=== PATIENT | female | born 1945 | race Caucasian/White ===

== ENCOUNTER → 2023-10-09 12:51 | Outpatient (REF) | payer OTHER, SELFPAY | LOC: PAVMRI 12:51 | PROVIDERS: ATTENDING PHYSICIAN Psychiatry & Neurology Neurology; FAMILY PHYSICIAN Family Medicine | DX: M54.50 Low back pain, unspecified (principal) | CPT/HCPCS: 72148 ==

== ENCOUNTER 2023-10-21 19:05 | Inpatient (IN) | payer OTHER, SELFPAY ==
[2023-10-21] VITALS (7 sets, daily range): BP systolic 167–187; BP diastolic 86–107; BMI 28.0; BMI 26.5
--- NOTE | 2023-10-21 15:50 | ED.GENMED ---
History of Present Illness
General
Chief Complaint: Seizure
Source: ambulance crew
Exam Limitations: altered mental status
Time Seen by Provider: 10/21/23 15:49
History of Present Illness
History of Present Illness:
Patient is an 78-year-old female with past medical history of hypertension, hyperlipidemia, seizure disorder although she does not appear to be on any antiepileptics based on external prescription history, GERD, AAA s/p repair, wheelchair-bound, who
presents to the emergency department from home via EMS for evaluation following 2 seizures. Patient is unable to provide history however medics report that family told them that she had a generalized tonic-clonic seizure this afternoon followed by
a period where she seemed to recover and then had another generalized tonic-clonic seizures. Patient has reportedly been postictal and confused since then and therefore family called 911. Family reports that patient had not had a seizure for about
a year and a half. Medics are unsure whether there was bowel or bladder incontinence.
Past History
Past History
ED Past Medical History: HTN, Hypercholesterolemia and Other
ED Past Surgical History: Cholecystectomy, Gynecological and Other
Social History
Tobacco: Smoker
Alcohol: None
Drug: None
Personal:
Living: with family
Review of Systems
Review of Systems
Allergies reviewed?: Yes
Unable to obtain full review of systems at this time due to: other (altered mental status/post-ictal)
All Other Systems: ROS reviewed and negative except as documented in HPI and ROS
Phy Exam
General Physical Exam
General Presentation: mild distress (intermittently combative)
General Skin: warm and dry
General Habitus: normal
General Mental: confused
General Hydration: appears well hydrated
ENT Exam
ENT Exam: EOMI, pharynx normal, neck supple and normocephalic
Eye Exam
Eye Exam: PERRL, cornea clear and conjunctiva normal
Cardiovascular Exam
Cardiovascular Exam: regular rate/rhythm, no murmur, normal peripheral pulses and other (bilateral lower extremity edema)
Pulmonary Exam
Pulmonary Exam: lungs clear, no respiratory distress, no rales, no crackles, no rhonchi, no stridor, no wheezing and no cough
Gastrointestinal Exam
Gastrointestinal Exam: normal bowel sounds, non tender, soft, no organomegaly, no pulsatile mass and non distended
Neurological Exam
Neurological Exam: alert, no motor deficits, confused and other (speech is nonsensical, however, pt follows commands, able to squeeze my hands, moves all extremities symmetrically)
Skin Exam
Skin Exam: normal color, warm/dry, no rash and no petechia
Course
Orders/Labs/Results
Orders:
Orders
10/21/23 15:49
CT Head W/o Iv Contrast Urgent
Comment:
Reason For Exam: altered mental status, seizure x 2
Bedside Glucose- Treatment ONCE
Cardiac Monitoring- Treatment ONCE
10/21/23 15:50
Electrocardiogram (*1) Stat
Reason for Study: Other
Other Reason for Exam: neuro symptoms
EKG- Treatment ONCE
10/21/23 15:57
Complete Blood Count/With Diff Urgent
Comprehensive Metabolic Panel Urgent
10/21/23 16:11
Lorazepam [Ativan] 1 mg IV NOW STA
10/21/23 17:42
Lacosamide [Vimpat] 200 mg PO ONCE ONE
10/21/23 18:17
Admit/Transfer Patient As Directed
Co-Sign Provider:
Level of Care: Inpatient admission
Assign to:: Telemetry
Physician / Group: gerson
Diagnosis: seizure
Reason for Telemetry: Arrhythmia
Date to Stop Telemetry: 10/24/23
Time to Stop Telemetry: 11:00
Reason for Hospitalization: seizure
Expected length of stay greater than two midnights?: Yes
ELOS- Estimated Length of Stay in days: 2
I certify the patient meets the requirements for IP care: Yes
10/21/23 18:18
Code Status As Directed
Resuscitation Status: Full Code
10/21/23 18:19
Urinalysis Reflex To Culture Urgent
10/21/23 18:22
NEUROLOGY CONSULT Routine
Consulting Provider: Lina Noble
Was physician already notified: Yes
Labetalol HCl [Trandate] 10 mg IV Q6HPRN PRN
10/21/23 18:48
Magnesium Urgent
10/22/23 08:00
Nicotine [Nicoderm Transdermal] 14 mg TRANSDERM DAILY
10/24/23 11:00
DC Protocol for Telemetry ONCE
Abnormal Lab Results
10/21/23 10/21/23
15:54 15:57
RBC 3.82 L 10^6/uL
(4.20-5.40)
Hgb 9.4 L g/dL
(12.0-16.0)
Hct 28.8 L %
(37.0-47.0)
MCV 75.4 L fL
(81.0-99.0)
MCH 24.6 L pg
(27.0-31.0)
MCHC 32.6 L g/dL
(33.0-37.0)
RDW 18.5 H %
(11.5-14.5)
MPV 10.6 H fL
(7.4-10.4)
Absolute Lymphs (auto) 0.9 L 10^3/uL
(1.2-3.4)
Neutrophils % 76.8 H %
(42.2-75.2)
Lymphocytes % 13.3 L %
(20.5-51.1)
Creatinine 0.5 L mg/dL
(0.6-1.0)
Glucose 110 H mg/dl
(70-99)
POC Glucose 117 H mg/dl
(70-99)
10/21/23 15:57
10/21/23 15:57
Vital Signs
Initial and Last Documented VS:
Initial Vital Signs
Temp Pulse Resp BP Pulse Ox
100 F 104 19 175/100 94
10/21/23 15:50 10/21/23 15:50 10/21/23 15:50 10/21/23 15:50 10/21/23 15:50
Last Documented Vital Signs
Temp Pulse Resp BP Pulse Ox
100 F 97 22 175/107 91
10/21/23 15:50 10/21/23 17:45 10/21/23 17:45 10/21/23 15:55 10/21/23 16:30
*Critical Care Note
Total Time (30-74mins, 75-104mins- exclusive of procedures): Not Applicable
Update Note
Update Note:
Patient is a 78-year-old female who presents emergency department for evaluation following 2 seizures by about 2 hours. Patient has only had 1 previous seizure 18 months ago. Patient was seen by neurology and they did not feel that she
needed any antiepileptics at that time. Family reports the patient has been feeling sick over the past few days with some diarrhea and abdominal complaints. On arrival, patient is hypertensive, afebrile. On exam, patient is in no acute distress
but is intermittently combative, her speech is nonsensical however she has no focal neurological deficits and is able to follow commands such as opening her eyes and squeezing my fingers. Labs were obtained and are nonactionable. EKG demonstrates
sinus tachycardia with PACs but no acute ischemic changes. CT of the head demonstrates no acute abnormality to account for the patient's symptoms today. On reevaluation, the patient is more awake and alert but is not completely back to baseline
according to her family. Will admit for further evaluation and treatment. Case was discussed with Dr. Noble of neurology who recommends giving the patient 200 mg of Vimpat p.o. now and then starting Vimpat 150 mg twice daily tomorrow. All
results and plan were discussed with patient and her family who expressed understanding and agreed.
ED Attending Note
-
Portions of this chart may have been created with voice recognition software.� Occasional wrong word or��sound alike� substitutions may have occurred due to the inherent limitations of voice recognition software.
Discharge Plan
Departure
Patient Disposition: Admit
Date of Disposition: 10/21/23
Time of Disposition: 17:44
Presentation/result/management discussed w/ accepting MD/DO: Hospitalist
Patient with high blood pressure during this ER visit?: Yes
Condition: Good
Covid-19: Not Applicable
Discharge Problem:
Seizure
Interventions
Interventions:
*Risk Screen - Suicide Last Done: 10/21/23 16:37
*General Assessment Last Done: 10/21/23 16:37
*Neglect/Abuse Screening Last Done: 10/21/23 16:37
ED- Fall Risk Assessment Last Done: 10/21/23 16:32
ED- Cardiac Assessment Last Done: 10/21/23 16:32
ED- Neurological Assessment Last Done: 10/21/23 16:32
ED- Pulmonary Assessment Last Done: 10/21/23 16:32
[2023-10-21 15:56] LABS: Glucose - Point of Care 117 mg/dl (70-99)
[2023-10-21] MEDS: ATIVAN 1 MG IV (16:16)
[2023-10-21 16:18] LABS: % Basophils 0.8 % (0-2); % Eosinophils 1.5 % (0-6); % Immature Granulocytes 0.3 % (0-0.5); % Lymphocytes 13.3 % (20.5-51.1); % Monocytes 7.3 % (1.7-9.3); % Neutrophils 76.8 % (42.2-75.2); Absolute Basophils 0.1 10^3/uL (0-0.2); Absolute Eosinophils 0.1 10^3/uL (0-0.7); Absolute Lymphocytes 0.9 10^3/uL (1.2-3.4); Absolute Monocytes 0.5 10^3/uL (0.1-0.6); Hematocrit 28.8 % (37.0-47.0); Hemoglobin 9.4 g/dL (12.0-16.0); Mean Corp Hgb Conc. 32.6 g/dL (33.0-37.0); Mean Corpuscular Hgb 24.6 pg (27.0-31.0); Mean Corpuscular Volume 75.4 fL (81.0-99.0); Mean Platelet Volume 10.6 fL (7.4-10.4); Nucleated Red Blood Cells % 0 %; Platelet Count 257 10^3/uL (130-400); Red Blood Cell Count 3.82 10^6/uL (4.20-5.40); Red Cell Dist. Width 18.5 % (11.5-14.5); White Blood Cell Count 6.5 10^3/uL (4.8-10.8)
[2023-10-21 16:30] LABS: ALT (SGPT) 14 U/L (0-35); AST (SGOT) 20 U/L (14-36); Albumin 3.8 g/dl (3.5-5.0); Alkaline Phosphatase 79 U/L (38-126); Blood Urea Nitrogen 10 mg/dl (7-17); Calcium 9.5 mg/dl (8.4-10.2); Carbon Dioxide 28 mmol/L (22-30); Chloride 101 mmol/L (98-107); Glucose 110 mg/dl (70-99); Potassium 3.6 mmol/L (3.5-5.1); Sodium 135 mmol/L (135-145); Total Bilirubin 0.7 mg/dl (0.2-1.3); Total Protein 6.4 g/dl (6.3-8.2); eGFR > 60.00
[2023-10-21] MEDS: VIMPAT 200 MG PO (17:50)
--- NOTE | 2023-10-21 18:23 | HPS.HSE ---
Family Physician
-
Family Physician: Irish Reeder
Chief Complaint
-
seizure
History of Present Illness
78-year-old female past medical history of prior seizure 1 and half year ago, chronic lacunar infarcts, hypertension, hyperlipidemia, GERD, abdominal aortic aneurysm status post repair, chronic peripheral edema, L5 spinal fracture status post
wheelchair-bound, euthyroid sick syndrome, normocytic anemia, iron deficiency anemia, nicotine use disorder, anxiety, right breast cancer, mesenteric ischemia, presented to the emergency room after 2 seizures. History is obtained from sons. At
approximately 1:30 PM today patient was noted to have generalized tonic-clonic seizure with whole body shaking and eyes rolled back. Episode lasted a few minutes and patient quickly returned to baseline mental status. An hour and a half later she
had a second tonic-clonic seizure that also lasted a few minutes but this time patient's mental status did not return back to normal. Unclear whether bowel or bladder incontinence. Son called 911. After patient came to the hospital her mental
status started to improve although not completely back to normal.
Patient last had a seizure 1 and a 1/2 years ago and came to the [place] emergency room. This was thought to be secondary to electrolyte abnormalities and patient was discharged without antiepileptics and outpatient EEG was recommended.
Patient started complaining of left eye blurry vision over the past month. No other recent neurological deficits. She has been having increased urinary frequency recently.
Patient smokes at least a pack of cigarettes a day. No alcohol use or any other drugs.
Medical History
Past Medical History
Past Medical History: Reports Other (prior seizure 1 and half year ago, chronic lacunar infarcts, hypertension, hyperlipidemia, GERD, abdominal aortic aneurysm status post repair, chronic peripheral edema, L5 spinal fracture status post
wheelchair-bound, euthyroid sick syndrome, normocytic anemia, iron deficiency anemia, nicotine use d)
Past Surgical History: Reports None
Social History
Tobacco: Smoker
Alcohol: None
Drug: None
Family History
Family History: Not pertinent
Allergies / Home Medications
Allergies reflects when Allergies were last updated in [email or web address].
Home Medications with original date entered in [email or web address]
Allergy/Medication List:
Allergies
Allergy/AdvReac Type Severity Reaction Status Date / Time
penicillin G Allergy Tongue Verified 10/21/23 16:13
Swelling
Penicillins Allergy Tongue Verified 10/21/23 16:13
Swelling
Home Medications
citalopram 20 mg tablet 20 mg PO DAILY Mental Health/Anxiety 03/09/21
lisinopril 20 mg tablet 40 mg PO DAILY Blood pressure 03/09/21
multivitamin with folic acid 400 mcg tablet (Tab-A-Charo) 1 tab PO DAILY Supplement 03/09/21
alprazolam 0.5 mg tablet 0.5 mg PO HSPRN PRN ANXIETY #5 tabs 04/24/23
polyethylene glycol 3350 17 gram oral powder packet (HealthyLax) 17 g PO DAILY PRN constipation 05/11/23
atorvastatin 10 mg tablet 10 mg PO QPM High cholesterol #30 tabs 05/24/23
gabapentin 300 mg capsule 300 mg PO TID neuropathy #0 caps 05/24/23
ferrous sulfate 325 mg (65 mg iron) tablet 325 mg PO Q48H Supplement 10/21/23
hydrocodone 10 mg-acetaminophen 325 mg tablet 1 tab PO Q6H PRN severe back pain 10/21/23
Review of Systems
-
History Source: Patient
A 12 point ROS was completed and negative except as noted: Yes
Constitutional: Reports No Symptoms
EENT: Reports No Symptoms
Respiratory: Reports No Symptoms
Cardiac: Reports No Symptoms
Abdomen/GI: Reports No Symptoms
: Reports No Symptoms
Musculoskeletal: Reports No Symptoms
Skin: Reports No Symptoms
Neurological: Reports No Symptoms
Endocrine: Reports No Symptoms
Hematologic/Lymphatic: Reports No Symptoms
Psych: Reports No Symptoms
Physical Exam
Vital Signs
Vital Signs
Temp Pulse Resp BP Pulse Ox
100 F 97 22 175/107 91
10/21/23 15:50 10/21/23 17:45 10/21/23 17:45 10/21/23 15:55 10/21/23 16:30
Physical Exam
General: Well Developed, Well Nourished and No Apparent Distress
HEENT: NormoCephalic, Moist mucous membranes and Atraumatic
Respiratory: Clear
Cardiac: S1/S2 and Regular Rhythm; No Murmur or Rub
GI: Soft, Non Tender, Non Distended and Normal Bowel Sounds; No Organomegaly
Rectal: Deferred by Provider
Musculoskeletal: No Clubbing, No Cyanosis and No Edema
Skin: No Rash
Neuro: Nonfocal/grossly intact
Laboratory Results
-
10/21/23 15:57
10/21/23 15:57
Laboratory Results
Total Bilirubin 0.7 mg/dl (0.2-1.3) 10/21/23 15:57
AST 20 U/L (14-36) 10/21/23 15:57
ALT 14 U/L (0-35) 10/21/23 15:57
Alkaline Phosphatase 79 U/L (38-126) 10/21/23 15:57
Data Reviewed
-
Lab Data: Labs Reviewed by me
Old Records: Reviewed
Impression/Plan
-
IMPRESSION:
PLAN:
# Tonic-clonic seizures
# History of prior seizure
-No focal neurological deficits on examination, postictal mental status improving, currently AAOx2
-CT head shows no acute intracranial abnormalities
-Neurology recommended lacosamide 200 mg now and then 150 mg twice daily from tomorrow
-Check magnesium level
-Consider MRI brain based on neurology recommendation given recent left eye blurry vision
# Hypertensive urgency
-Continue lisinopril
-As needed labetalol for persistently elevated blood pressure
# Recent urinary frequency
-Check urinalysis
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
Hyperlipidemia
-Continue statin
GERD
History of abdominal aortic aneurysm status post repair
History of L5 spinal fracture with decreased mobility/wheelchair-bound/chronic back pain
-Continue Vicodin
-Hold gabapentin for now until mental status back to normal
Chronic peripheral edema secondary to immobility/venous stasis
Anxiety/depression
-Continue Xanax as needed
-Continue citalopram
Chronic microcytic anemia
-Hemoglobin stable 9.4
-Continue iron supplement
Nicotine use disorder
-Nicotine patch
History of euthyroid sick syndrome
History of mesenteric ischemia
History of breast cancer
Full code
DVT prophylaxis�heparin
Regular diet
[2023-10-21 19:25] LABS: Magnesium 1.9 mg/dl (1.6-2.3)
[2023-10-21] MEDS: HEPARIN 5000 UNITS SC (21:20)
[2023-10-21] MEDS: XANAX 0.5 MG PO (22:07)
[2023-10-22] VITALS (34 sets, daily range): BP systolic 104–193; BP diastolic 52–115; BMI 25.9
[2023-10-22] MEDS: TRANDATE 10 MG IV (00:40)
[2023-10-22] MEDS: XOPENEX 0.63 MG INHALANT SOLUTION INH (00:46)
--- NOTE | 2023-10-22 00:46 | PTCARENOTE ---
patient with onset of shortness of breath - Pulse ox 89 on 4L. and tachycardia HR 145, sustained . BP 200/99. [id number]. Reached out to Utility Manager precious Moody NP arrived to floor to evaluate patient and place orders. Will continue to monitor patient
--- NOTE | 2023-10-22 00:47 | RESPNOTE ---
called to patient bedside for respiratory distress. Patient in fluid overload. Determined that nebulizer treatment was not the correct therapy at this time.
[2023-10-22] MEDS: MORPHINE SULFATE 2 MG IV (01:08)
[2023-10-22 01:30] LABS: % Basophils 0.6 % (0-2); % Eosinophils 0.3 % (0-6); % Immature Granulocytes 0.3 % (0-0.5); % Lymphocytes 10.9 % (20.5-51.1); % Monocytes 6.5 % (1.7-9.3); % Neutrophils 81.4 % (42.2-75.2); Absolute Basophils 0.1 10^3/uL (0-0.2); Absolute Lymphocytes 1.2 10^3/uL (1.2-3.4); Absolute Monocytes 0.7 10^3/uL (0.1-0.6); Absolute Neutrophils 9.3 10^3/uL (1.4-6.5); Hematocrit 31.1 % (37.0-47.0); Hemoglobin 10.1 g/dL (12.0-16.0); Mean Corp Hgb Conc. 32.5 g/dL (33.0-37.0); Mean Corpuscular Hgb 24.9 pg (27.0-31.0); Mean Corpuscular Volume 76.8 fL (81.0-99.0); Mean Platelet Volume 10.3 fL (7.4-10.4); Nucleated Red Blood Cells % 0 %; Platelet Count 300 10^3/uL (130-400); Red Blood Cell Count 4.05 10^6/uL (4.20-5.40); Red Cell Dist. Width 18.5 % (11.5-14.5); White Blood Cell Count 11.4 10^3/uL (4.8-10.8)
[2023-10-22 01:48] LABS: ALT (SGPT) 13 U/L (0-35); AST (SGOT) 20 U/L (14-36); Albumin 3.9 g/dl (3.5-5.0); Alkaline Phosphatase 76 U/L (38-126); Blood Urea Nitrogen 10 mg/dl (7-17); Calcium 9.1 mg/dl (8.4-10.2); Carbon Dioxide 28 mmol/L (22-30); Chloride 102 mmol/L (98-107); Estimated Creatinine Clearance 65 ml/min; Glucose 201 mg/dl (70-99); Potassium 3.5 mmol/L (3.5-5.1); Sodium 137 mmol/L (135-145); Total Bilirubin 0.9 mg/dl (0.2-1.3); Total Protein 6.4 g/dl (6.3-8.2); eGFR > 60.00
[2023-10-22 01:54] LABS: NT-proBNP 17800 pg/ml
[2023-10-22] MEDS: LASIX 40 MG IV ×2 (02:39→11:10)
[2023-10-22] MEDS: NORCO 5/325 PO (02:57)
[2023-10-22 03:19] LABS: Glucose - Point of Care 150 mg/dl (70-99)
[2023-10-22] MEDS: XOPENEX 0.63 MG INHALANT SOLUTION 0.630000000000000004 MG INH (03:23)
[2023-10-22 03:58] LABS: COVID-19 Antigen Negative (Negative)
[2023-10-22 03:58] LABS: B.E. 3.4 mmol/L; HCO3 29.5 mmol/L (21-28); O2 Saturation % 98.9 % (94-98); PCO2 51 mmHg (32-35); PO2 92 mmHg (83-108); pH 7.37 (7.35-7.45)
--- NOTE | 2023-10-22 04:06 | PTCARENOTE ---
rapid response called for patient. Patients HR increased to 140's , Respiratory rate 26-28. BP 207/121 Pulse ox 93 on 4 Liters. 40 mg IV Lasex given at 2:39 am, with no relief, as well as IV Mporphine as Labatol. Patient transferred to ICU
[2023-10-22 04:30] LABS: Urine Albumin Trace (Neg - Trace); Urine Bilirubin Negative (Negative); Urine Character Clear (Clear); Urine Color Yellow; Urine Glucose Negative (Negative); Urine Ketone Negative (Negative); Urine Leukocyte Negative (Negative); Urine Nitrite Negative (Negative); Urine Occult Blood Negative (Negative); Urine Urobilinogen Negative (Neg - 1+)
--- NOTE | 2023-10-22 04:30 | PTCARENOTE ---
rec`d pt after a rapid call. pt drowsy in bed, alert to verbal stimuli. knows self, but not year or time. SR on monitor, BP elevated, +3 bilateral lower extremity edema. left AC 20 and rt FA flushed and capped. 6L NC satting 96%, coarse crackles
heard on LL lung. pacheco placed, draining clear, yellow urine. left groin wound open to air. safe environment maintained. call andrews in reach.
[2023-10-22 04:38] LABS: Troponin I 0.101 ng/ml
[2023-10-22 04:41] LABS: INR 1.09; PT 13.9 Sec (11.4-14.6)
[2023-10-22 04:42] LABS: APTT 26.2 Sec (23.4-35.0)
--- NOTE | 2023-10-22 04:46 | W.PN.UPDATE ---
Update Note
Progress Note Update
At 0015 Ran notfied VAMP WETTER as patient seems to be anxious and HR in 130's, oxygen level 87% 3l, Lungs diminished with wheezes, BP 195/100. Patient seen and evaluated, patient seemed to be in respiratory distress, Lungs, coarse, audible rales, congested,
+ edema B/L LE. Xopenex ordered, Chest Xray and Procalcitonin ordered, Covid, flu, and advised RN to give ordered labetalol, and added Morphine 2mg IV stat for comfort of breathing.
Chest Xray read with the help of Dr. Olson, and suggestive of Heart failure, Procalcitonin 19210, last year it was 508. Don't see any diuretic on home medications and states she is not on any water pills at home, but admits she may have
COPD from smoking. Medical records does show patient had IV lasix once when she was admitted in the hospital for chronic LE edema.
At 0315 GLASS MOULD CLEANER was called. Patient in worsening respiratory distress and worsening mental status, VS: 200/100, HR 140's, 6L 88-90%, Lung sounds continues to be same. Stat labs ordered, stat ABG ordered, Called Patient's to confirm code status,
patient remains Full code, will transfer patient to ICU, Dr. Olson made aware.
[2023-10-22] MEDS: OFIRMEV 100 IV (05:57)
[2023-10-22] MEDS: APRESOLINE 10 MG IV ×2 (05:57→13:15)
[2023-10-22] MEDS: DILAUDID 0.5 MG IV (06:24)
--- NOTE | 2023-10-22 07:13 | CON.INTV ---
Consultation
Consultation Request
Date/Time Consultation Requested: 10/21/23
Date/Time Consultation Performed: 10/22/23
Medical History
-
History of Present Illness:
78-year-old female past medical history of prior seizure, chronic lacunar infarcts, hypertension, chronic LBP/wheelchair-bound, current smoker presented to ED s/p two witnessed seizures at home.� History is obtained from family/records.� Patient
was noted to have generalized tonic-clonic seizure, lasting several minutes and resolution to baseline w/o postictal period.� Following second episode, patient's mental status did not recover and EMS was then called.
Patient has a history of seizure in the past at .� This was thought to be secondary to electrolyte abnormalities. Patient was discharged without antiepileptics and outpatient EEG was recommended.
She is admitted to telemetry. Overnight developed HR in 130-140s, desaturation with O2 sherita 87% placed on 6L, wheezing, BP 195/100-200/100. She appeared in resp distress, and transferred to ICU. CXR showing acute CHF with proBNP 42530.
Past Medical History
Past Medical History: Other (see list below)
Social History
Tobacco: Smoker
Alcohol: None
Drug: None
Family History
Family History: Reviewed & Not Pertinent
Allergies / Home Medications
Allergies
Allergy/AdvReac Type Severity Reaction Status Date / Time
penicillin G Allergy Tongue Verified 10/21/23 16:13
Swelling
Penicillins Allergy Tongue Verified 10/21/23 16:13
Swelling
Home Medications
Medication Instructions Recorded Confirmed Last Taken Type
citalopram 20 mg tablet 20 mg PO DAILY Mental 03/09/21 10/21/23 05/22/23 History
Health/Anxiety
lisinopril 20 mg tablet 40 mg PO DAILY Blood pressure 03/09/21 10/21/23 05/22/23 History
multivitamin with folic acid 400 1 tab PO DAILY Supplement 03/09/21 10/21/23 05/22/23 History
mcg tablet (Tab-A-Charo)
alprazolam 0.5 mg tablet 0.5 mg PO HSPRN PRN ANXIETY #5 04/24/23 10/21/23 Unknown Rx
tabs
polyethylene glycol 3350 17 gram 17 g PO DAILY PRN constipation 05/11/23 10/21/23 Unknown History
oral powder packet (HealthyLax)
atorvastatin 10 mg tablet 10 mg PO QPM High cholesterol #30 05/24/23 10/21/23 05/21/23 Rx
tabs
gabapentin 300 mg capsule 300 mg PO TID neuropathy #0 caps 05/24/23 10/21/23 Unknown Rx
ferrous sulfate 325 mg (65 mg 325 mg PO Q48H Supplement 10/21/23 10/21/23 Unknown History
iron) tablet
hydrocodone 10 mg-acetaminophen 1 tab PO Q6H PRN severe back pain 10/21/23 10/21/23 Unknown History
325 mg tablet
Review of Systems
-
History Source: Patient
All other systems: Negative unless noted
Vitals / Labs / Diagnostic Testing
Vital Signs
Temp Pulse Resp BP Pulse Ox
99.0 F 93 28 150/70 96
10/22/23 03:00 10/22/23 06:30 10/22/23 06:30 10/22/23 06:30 10/22/23 06:30
Lab Data
10/22/23 01:20
10/22/23 01:20
Laboratory Results
10/22/23 10/22/23
03:30 04:22
PT 13.9
INR 1.09
APTT 26.2
pH 7.37
pCO2 51 H
pO2 92
HCO3 29.5 H
O2 Delivery Level Not Reportable
Microbiology
10/22/23 03:23 Nasal Swab Influenza Types A & B (ELEUTERIO) - Final
Negative for Influenza A & B, NAAT
Negative results must be combined with clinical observations
and patient history.
Nucleic Acid Amplification test (NAAT)performed on the
[employer] ID NOW platform.
Diagnostic Testing:
Physical Exam
-
HEENT: Normocephalic, Anicteric and Moist Mucous Membranes
Cardiovascular: S1/S2 and Regular Rhythm
Respiratory: Rales and Non-Labored Respirations
GI: Soft, Non Distended and Non Tender
Neurology: Awake, Alert, No Motor Deficits, Tremors and Other (confused)
Skin: Warm, Dry and Good Color
General: Comfortable and Other (NAD)
Assessment
-
78-year-old female past medical history of prior seizure, chronic lacunar infarcts, hypertension, chronic LBP/wheelchair-bound, current smoker presented to ED s/p two witnessed seizures at home.�
Overnight developed HR in 130-140s, desaturation with O2 sherita 87% placed on 6L, wheezing, BP 195/100-200/100, CXR showing acute CHF with proBNP 19156. She appeared in resp distress, and transferred to ICU for further management.
Acute generalized tonic clonic seizure x 2 with postictal period
Change in MS
Acute decompensated CHF presumed pEF
Pulmonary edema on CXR, elevated proBNP
Acute hypoxic resp failure on 6L NC
Hypertensive emergency
Conditions present prior to admission:
AAA 4.9 cm s/p BALJEET-Dr. Estes-03/15/21
Colon polyps
Hypertension
Hyperlipidemia
Breast cancer-right breast lumpectomy 01/24/09-Dr. Bueno status post XRT
Depression/anxiety
Cholecystectomy/umbilical hernia
Moderate cigarette smoker (10-19 cigs/day)� �
Diverticulosis
LBP w/ Compression fracture of L5 vertebra s/p L5-S1 ILESI 04/02/23�
Thyroid nodule
Angioedema from penicillin 2006
Tenormin-induced cough
Family history lung [id number]
GIB admission with EGD negative 05/13/23
Plan
+current signs of metabolic encephalopathy Liley postictal state
Initial imaging neg, brain MRI pending today
Neuro eval obtained, EEG pending
Baseline MS reported as aaox 3 per family
Denies pain at this time.
Pain/sedation: PRN, resume home citalopram, hold xanax
RASS goals: 0
Hemodynamically stable, not requiring pressors.
Cardiac history reviewed--HTN, prior ECHO in past normal but with mod LVH
Hypertensive emergency noted with decompensated HF, proBNP 17950
Given lasix x 1
Cards eval recommended
BP control
Oxygen needs: on supplmental O2
Prior history of lung disease: none known, suspect COPD, current smoker
No PFTs for review
Supplemental O2 as indicated to maintain sats > 89%
CXR/CT reviewed indicating bilateral edema
NPO, resume diet when able
Roller Varnisher recommendations
Aspiration precautions, HOB > 30 degrees
Speech therapy eval
GI prophylaxis if indicated for mechanical ventilation >48 hours, prior history of GERD, stress ulcer formation in the critically ill
Creat at baseline, no history of renal disease
Void trials
Follow urine output, critical I/Os
Replete electrolytes as needed
No signs/symptoms suspicious for infectious etiology at this time
Observe off antibiotics for now
Follow fever trend, WBC count
CBC stable, no signs of bleeding or coagulopathy.
DVT prophylaxis as assessed based on risk, including mechanical SCDs
Can transfuse if indicated for Hb <7, plt < 10
INR WNL
No prior h/o diabetes or thyroid disease
Monitor accuchecks PRN/SS coverage if needed
Can likely transfer to tele today if MRI neg, we will sign off upon transfer.
Diagnostic Data
Chest X-Ray: 10/22/23- Minimal improvement in the interstitial edema. Heart size is mildly enlarged.
CT Scan: HEAD 10/21/23- No acute intracranial abnormalities. Findings again seen compatible with diffuse cortical atrophy with nonspecific white matter changes.
Echo: 05/14/23- Left ventricle is small in size.� Normal left ventricular systolic function. Left ventricular ejection fraction is 55-60% by visual assessment.� Normal�regional wall motion. Mild to moderate concentric left ventricular
hypertrophy.�Normal diastolic function.�Normal right ventricular size and function.�Trileaflet aortic valve. Aortic valve opens normally. Aortic sclerosis without�stenosis. Trivial aortic regurgitation.�Estimated pulmonary artery pressure of 25-30
mmHg assuming a right atrial�pressure of 3 mmHg.
PFT's:
Reports and relevant images were personally reviewed.
-----
Critical Care time 65 mins -- The patient is admitted for acute critical illness for the treatment of vital organ failure and/or prevention of further life-threatening conditions. Total care includes time spent in review of history, physical exam,
medications, hemodynamic/ventilator parameters, laboratory data, imaging and discussion with house staff, pharmacy, respiratory therapy, senior principal, and nursing.
--- NOTE | 2023-10-22 08:15 | PTCARENOTE ---
Assumed care of patient. Pt easily arousable...conversive. Knows name...confused. Anxious...agitated. Tremor noted. Follows commands. Responses to commands are inconsistent. Yells out at times...appears irritated w/ patient care. S1 S2 reg
w/ NSR on monitor. Weak PP. +3 LLE...cellulitic LE's. Rec'd on 6L N/C..sats 98%. O2 decreased to 4L N/C...sats 97%. Lungs clear...poor effort noted. Abdomen round...+BS. Chang draining yellow urine. Chang care done. Skin WNL except reddened
and excoriated abdominal folds re: MASD. 20P LAC WNL. 20P RFA WNL. VS documented. , , and at bedside to discuss plan of care. Will continue to monitor closely.
[2023-10-22] MEDS: NICODERM TRANSDERMAL 14 MG TRANSDERM (09:02)
[2023-10-22] MEDS: ZESTRIL 40 MG PO ×2 (09:02→09:08)
[2023-10-22] MEDS: CELEXA 20 MG PO (09:03)
--- NOTE | 2023-10-22 09:03 | CON.NEURO4 ---
Addendum entered and electronically signed by David Lackey MD 10/22/23 13:59:
Studies reviewed.
I have personally examined the patient. I reviewed and agree with the PRINTING ASSISTANT's Note.
My addenda:
Awake, alert, interactive. No acute distress.
Speech irregular and incomplete. Content of speech confused.
Follows 2-step requests w/o difficulty. No tremor.
Extra-ocular movements grossly intact.
Facial movements full and symmetric. Hearing intact to normal conversational volume.
Irregular jaw movements without ataxic speech.
Neck: full ROM.
Chest: no dyspnea
Heart: no JVD
Ext: (-) Clubbing, (-) Cyanosis, (-) Edema
IMPRESSIONS/RECOMMENDATIONS:
Abrupt onset of seizures with decline in mental status, variable symptoms, respiratory distress episodes, chronic proximal tremor
Unclear what the exact etiology is for current symptomatology. Presumed chronic degenerative disorder or paraneoplastic etiology
Continue newly initiated lacosamide 150 mg twice a day
Check EEG
Check MRI brain
No indication for antiplatelet agents at this time
Goal of normotension
Will continue to follow patient.
Original Note:
Documented by User: Kathleen August NP 10/22/23 11:22
Consultation - Neurology 4
-
CONSULTING PHYSICIAN: David Lackey MD
REFERRING PHYSICIAN: Hospitalists/Dr. Gross
DICTATED BY: ANTHONY Gutierrez
DATE/TIME OF REQUEST: 10/21/23
DATE/TIME OF CONSULTATION: 10/22/23
Reason for Consultation: Seizure
History of Present Illness:
This is an 78-year-old female who has presented to the hospital on 10/21/23 with report of two seizures at home. Patient is confused and unable to provide history so most of this information is obtained from medical records. Patient is followed by
Dr. Ortiz as an outpatient for a history of one seizure in June 2022.
From previous evaluation by Dr. Ortiz on 02/04/23:
'Patient is a right handed 77 year old woman presenting after single seizure occurring on July 04 2022. Her had last seen her sitting in the sofa and was asleep taking an afternoon nap around 2 PM, then he heard the dog making a
commotion. had seen her trembling and shaking and wasn't waking up with unresponsiveness, gradually after a few minutes she woke up. The event hasn't happened since then, had never happened before. No changes in alprazolam around the seizure
event. 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
childhood seizures or febrile seizures.�������No history of stroke.�������Reports her memory isn't so good. She can remember things from her earlier years much better than recent events. She does her credit card bills. She balances her checkbook.
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
ayde dog a lisa and likes playing on computer.�������FH: No family history of seizures or epilepsy whatsoever.
Her seizure in June 2022 was deemed due to electrolyte imbalance and she was not started on an antiseizure medication at that time due to it being an isolated event. Yesterday (10/21/23) around 1330, patient had a witnessed generalized seizure
with whole body shaking and eyes rolling back lasting a few minutes before returning to her baseline. Then around 1500 she proceeded to have another generalized seizure lasting a few minutes but this time she was very confused afterward, so family
called 911. It is unclear if there was any bladder/bowel incontinence or tongue biting associated with these events. CT head was obtained in the ER and is negative for any acute abnormalities. Patient was loaded with lacosamide in the ER. Overnight,
she was noted to be dyspneic, anxious, hypertensive, with oxygen levels in the 80's on 6L nasal cannula x2. Patient was given lasix 40mg IV and a pacheco catheter was inserted and drained 1300ml of urine. Today, patient appears confused, somewhat
aphasic, and still anxious, but no dyspnea. She is unable to provide accurate answers to ROS questions.
Past Medical History: Seizure disorder, essential tremor, severe spinal stenosis at L3, L4, L5, subacute L5 endplate fracture, chronic L3 endplate fracture, COPD, HTN, HLD, right breast cancer, depression, anxiety, colon polyps, prediabetes,
diverticulosis, AAA, chronic mesenteric ischemia, benzodiazepine dependence, ambulatory dysfunction/wheelchair bound
Surgical History: Cholecystectomy, umbilical hernia repair, EVAR
Family History: Reviewed and noncontributory.
Social History: Smokes 1 PPD since age 13. Denies alcohol and illicit drug use.
Allergies: Penicillin.
Home Medications: See below.
Review of Symptoms:
Per the HPI. I am unable to obtain a complete review of systems�because of patient's inability to provide history.
Physical Exam:
The patient is afebrile, abdomen is nondistended, breathing is unlabored on oxygen via nasal cannula, BLE red with +2 edema, pacheco catheter in place.
NIH Stroke Scale:
I performed the NIH stroke scale on the patient on 10/22/23 at 0830. The patient scored 6 points on the NIH stroke scale assessment, which were assigned as follows: See below.
Neurologic Examination:
The patient is awake, alert and oriented to self and place not month, year, or situation. She is able to follow some one-step commands. There is moderate global aphasia/word salad. No dysarthria. On cranial nerve assessment, pupils are 3 mm
bilateral, round and reactive to light and accommodation. Visual rebollar are full. Extraocular movements are restricted with upward gaze/complains of discomfort. There is no facial asymmetry. Hearing is intact bilaterally to normal conversation
volume. Tongue palate and uvula are midline. Motor exam is challenging to assess due to lack of cooperation at times. Sternocleidomastoid strengths are diminished bilaterally. Motor strengths are 4/5 bilateral upper and 4-/5 RLE, 4/5 LLE on medical
research [place] scale. There is drift in bilateral lower extremities. There is a low amplitude semi rhythmic tremor in bilateral hands and head with exertion. Deep tendon reflexes are 2+ bilateral upper and lower extremities and Babinski is
positive on the right. ROSSANA sensation and double simultaneous. Coordination is intact by finger to nose bilaterally.
Lab Results: See below.
Neuro Imaging:
1. CT head 10/21/23: No acute intracranial abnormalities. Findings again seen compatible with diffuse cortical atrophy with nonspecific white matter changes as described above.
Differentials for the patient's presentation include:
1. Seizure disorder with two breakthrough generalized seizures.
2. Some concern for ischemic stroke given aphasia.
3. Essential tremor
Patient has the following risk factors for their symptoms: Hx previous seizure, smoker, HTN, HLD, age
Recommendations:
-Routine EEG ordered/pending.
-MRI brain with and w/o contrast ordered/pending.
-Continue lacosamide 150mg BID.
-Seizure precautions.
-Neurological checks per unit guidelines.
-PT/OT/ST evaluations.
-DVT prophylaxis.
-Smoking cessation counseling, provide nicotine patch.
Discussed patient care with: Dr. Lackey, Dr. Aranda, Dr. Marrero, nursing staff, the patient
NIH Stroke Score
Subsequent NIH Scale
Date of Subsequent NIH Scale: 10/22/23
Time of Subsequent NIH Scale: 08:30
NIH Stroke Score
Level of Consciousness: 0 - Alert
LOC Questions: 2-Neither correct
LOC Commands: 0-Performs both correctly
Best Horizontal Gaze: 0-Normal
Visual Rebollar: 0=Normal, no visual loss
Facial Palsy: 0=Normal, symmetrical
Motor - Right Arm: 0=No drift 10 seconds
Motor - Left Arm: 0=No drift 10 seconds
Motor - Right Le-Drift < 5 seconds
Motor - Left Le-Drift < 5 seconds
Limb Ataxia: 0-Absent
Sensation: 0-Normal
Best Language: 2-Severe aphasia
Dysarthria: 0-Normal
Extinction and Inattention: 0-No abnormality
Total Score:: 6
Modified [place] (mRS) Score
Modified [place] Scale (mRS): Moderately severe disability. Unable to attend to bodily needs/walk.
Score: 4
Vital Signs and Labs
-
Vital Signs and Labs:
Vital Signs
Temp Pulse Resp BP Pulse Ox
98.1 F 90 28 155/85 96
10/22/23 07:34 10/22/23 09:08 10/22/23 06:30 10/22/23 09:08 10/22/23 06:30
Lab Results
10/22/23 01:20
10/22/23 01:20
PT 13.9 Sec (11.4-14.6) 10/22/23 04:22
INR 1.09 10/22/23 04:22
APTT 26.2 Sec (23.4-35.0) 10/22/23 04:22
Sodium 137 mmol/L (135-145) 10/22/23 01:20
Potassium 3.5 mmol/L (3.5-5.1) 10/22/23 01:20
BUN 10 mg/dl (7-17) 10/22/23 01:20
Glucose 201 mg/dl (70-99) H 10/22/23 01:20
Calcium 9.1 mg/dl (8.4-10.2) 10/22/23 01:20
Kpk-Z-Dvljmkecaaf Pept 67156 pg/ml 10/22/23 01:20
Medications
-
Active Medications
Generic Name Dose Route Start Last Admin
Trade Name Freq PRN Reason Stop Dose Admin
Hydrocodone Bitart/Acetaminophen 2 tablet 10/21/23 20:21 10/22/23 09:19
Hydrocodone 5 Mg/Acetaminophen 325 Mg Tablet PO 11/04/23 20:20 2 tablet
Q6HPRN PRN Administration
severe back pain
Alprazolam 0.5 mg 10/21/23 19:54 10/21/23 22:07
Alprazolam 0.5 Mg Tablet PO 11/18/23 19:53 0.5 mg
HSPRN PRN Administration
ANXIETY
Atorvastatin Calcium 10 mg 10/22/23 18:00
Atorvastatin (Lipitor) 10 Mg Tablet PO 11/19/23 17:59
QPM DERRICK
Citalopram Hydrobromide 20 mg 10/22/23 08:00 10/22/23 09:03
Citalopram 10 Mg Tablet PO 11/19/23 07:59 20 mg
DAILY EDRRICK Administration
Ferrous Sulfate 325 mg 10/22/23 08:00 10/22/23 09:09
Ferrous Sulfate 325 Mg Tablet PO 11/19/23 07:59 325 mg
Q48H DERRICK Administration
Furosemide 40 mg 10/22/23 09:12
Furosemide 40 Mg (10 Mg/Ml) 4 Ml Vial IV 10/22/23 09:13
ONCE ONE
Heparin Sodium 5,000 units 10/21/23 20:00 10/22/23 09:10
Heparin 5,000 Units/Ml 1 Ml Vial SC 11/18/23 19:59 5,000 units
Q12 DERRICK Administration
Labetalol HCl 10 mg 10/21/23 18:22 10/22/23 00:40
Labetalol Hcl 5 Mg/1 Ml (20 Mg/4 Ml) Injection IV 11/18/23 18:21 10 mg
Q6HPRN PRN Administration
SBP>170
Lacosamide 150 mg 10/22/23 08:00 10/22/23 09:09
Lacosamide (Vimpat) 100 Mg Tablet PO 11/19/23 07:59 150 mg
BID DERRICK Administration
Lisinopril 40 mg 10/22/23 08:00 10/22/23 09:08
Lisinopril 20 Mg Tablet PO 11/19/23 07:59 40 mg
DAILY DERRICK Administration
Nicotine 14 mg 10/22/23 08:00 10/22/23 09:02
Nicotine 14 Mg Patch TRANSDERM 11/19/23 07:59 14 mg
DAILY DERRICK Administration
Polyethylene Glycol 17 grams 10/21/23 19:54
Polyethylene Glycol Powder 17 Grams Packet PO 11/18/23 19:53
DAILYPRN PRN
constipation
Sodium Chloride 0 flush 10/21/23 20:00
Sodium Chloride 0.9% (Flush) Syringe IV 11/18/23 19:59
PER PROTOCOL DERRICK
Thiamine HCl 100 mg 10/22/23 10:00
Thiamine 100 Mg Tablet PO 11/19/23 09:59
BID DERRICK
Home Medications
Medication Instructions Recorded
citalopram 20 mg tablet 20 mg PO DAILY Mental 03/09/21
Health/Anxiety
lisinopril 20 mg tablet 40 mg PO DAILY Blood pressure 03/09/21
multivitamin with folic acid 400 1 tab PO DAILY Supplement 03/09/21
mcg tablet (Tab-A-Charo)
alprazolam 0.5 mg tablet 0.5 mg PO HSPRN PRN ANXIETY #5 04/24/23
tabs
polyethylene glycol 3350 17 gram 17 g PO DAILY PRN constipation 05/11/23
oral powder packet (HealthyLax)
atorvastatin 10 mg tablet 10 mg PO QPM High cholesterol #30 05/24/23
tabs
gabapentin 300 mg capsule 300 mg PO TID neuropathy #0 caps 05/24/23
ferrous sulfate 325 mg (65 mg 325 mg PO Q48H Supplement 10/21/23
iron) tablet
hydrocodone 10 mg-acetaminophen 1 tab PO Q6H PRN severe back pain 10/21/23
325 mg tablet

Documented by User: David Lackey MD 10/22/23 13:39
NIH Stroke Score
NIH Stroke Score
Total Score:: 6
Modified [place] (mRS) Score
Score: 4
[2023-10-22] MEDS: FEOSOL 325 MG PO (09:09)
[2023-10-22] MEDS: VIMPAT 150 MG PO ×2 (09:09→20:20)
[2023-10-22] MEDS: HEPARIN 5000 UNITS SC ×2 (09:10→20:23)
--- NOTE | 2023-10-22 09:15 | PTCARENOTE ---
EEG at bedside.
[2023-10-22] MEDS: NORCO 5/325 2 TABLET PO ×2 (09:19→20:33)
[2023-10-22] MEDS: VITAMIN B1 PO (11:10)
--- NOTE | 2023-10-22 11:24 | W.PN.HOSP.TC ---
Today's Communication/Plan
-
TTE
extra dose lasix
add procardia xl/hydralzine for bp control
f/u MRI/EEG report
Assessment / Plan
Assessment / Plan
1. Seizure episode - GTCS
History of prior seizure
-Patient remains awake although disoriented and not able to provide any clear information
-CT head shows no acute intracranial abnormalities
-Neurology evaluated and recommended MRI head without contrast and EEG
-Continue seizure prophylaxis
-Patient lacosamide dose increased to 150 mg twice daily
2. Acute on chronic diastolic HF
Acute hypoxic resp failure
-TTE in May 10 showing preserved EF and preserved diastolic function
-proBNP elevated to 17.8K , which was 500 in may 10
-Patient had rapid response in the night for new onset of dyspnea/hypoxia and panic episode from the
-Patient required 6 L oxygen through nasal cannula, required IV Lasix 40 mg with which patient had good urine output
-Checks x-ray showing possible mild HF
-Providing another dose of IV Lasix 40 mg today
-Repeat echocardiogram ordered
3. Hypertensive urgency
-Continue lisinopril, adding nifedipine XL to regimen
-As needed hydralazine ordered
4. L5 compression fracture
Severe spinal stenosis
Wheelchair bound
-Patient has been wheelchair-bound for last 6 to 8 months
-In June 09 patient was found to having severe lumbar spinal stenosis and was evaluated by Dr. Robledo, reports that reason Dr. Robledo could not do the surgery and had to switch to [facility] group -Per family [facility] group physician did not feel patient
was a candidate for any surgical intervention
-Currently patient following with Dr. Plascencia for pain control who is planning to do a spinal stimulator placement
-Adding oral pain medication for pain control
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
Hyperlipidemia
GERD
History of abdominal aortic aneurysm status post stent placement
Chronic peripheral edema secondary to immobility/venous stasis
Anxiety/depression -Continue Xanax/citalopram
Chronic microcytic anemia
Nicotine use disorder
History of euthyroid sick syndrome
History of mesenteric ischemia
History of breast cancer s/p lumpectomy/chemo
Full code
DVT prophylaxis�heparin
Case discussed with neurology/supervisor grove
Patient's son updated
Total critical care time 45 mins . Total critical care time documented does not include time spent on separately billed procedures or the services of residents, students, nurses or physician assistants. I personally saw and examined the patient. I
have reviewed all diagnostic interpretations and treatment plans as written. I was present for the [place] portions of any procedures performed and the inclusive time noted in any critical care statement. Critical care time includes patient management
by me, time spent at the patients bedside, time to review lab and imaging results, discussing patient care, documentation in the medical record, and time spent with the family or caregiver.
Anticipated Discharge: 24 - 48 hours
Subjective/Interval History
-
Date of Service: October 22, 2023
Patient resting comfortably in bed
Remains disoriented and unable to provide any detailed information
Complaining of back pain
On oxygen through nasal cannula
Objective Data
-
Labs:
Laboratory Results
10/22/23 10/22/23 10/22/23
01:20 03:30 04:22
WBC 11.4 H
Hgb 10.1 L
Hct 31.1 L
Plt Count 300
PT 13.9
INR 1.09
APTT 26.2
HCO3 29.5 H
Sodium 137
Potassium 3.5
Chloride 102
Carbon Dioxide 28
BUN 10
Creatinine 0.5 L
Glucose 201 H
Calcium 9.1
Total Bilirubin 0.9
AST 20
ALT 13
Alkaline Phosphatase 76
Vital Signs:
Vital Signs
Temp Pulse Resp BP Pulse Ox
98.1 F 93 25 193/88 98
10/22/23 07:34 10/22/23 11:10 10/22/23 10:00 10/22/23 11:10 10/22/23 10:00
I&O
10/21/23 10/22/23 10/23/23
06:59 06:59 06:59
Intake Total 100 / 100
Output Total 1800 / 1800
Balance -1700 / -1700
Review of Systems
-
Unable to obtain full review of systems at this time due to: Acuity
Physical Exam
-
General: Comfortable and Cachectic
HEENT: Oxygen
Respiratory: Rhonchi
Cardiac: Regular Rhythm and S1/S2; Negative Murmur or Rub
GI: Soft, Nontender and Nondistended
Musculoskeletal: Edema, Right Lower Extrem, Edema, Left Lower Extrem and Other (b/l LE skin changes of chronic venous stasis)
Neuro: Awake, Alert, No Motor Deficits and Nonfocal/Grossly Intact
Psych: Calm
--- NOTE | 2023-10-22 12:00 | PTCARENOTE ---
ECHO done at bedside. No major changes in physical assessment. Pt's and son updated on plan of care. Calls out and yells intermittently. Bed alarm on. Will continue to monitor closely.
--- NOTE | 2023-10-22 13:13 | PTOTSP ---
ST Dysphagia Evaluation
Limited assessment due to minimal PO acceptance; swallow appears prompt for thin liquids
Pt received asleep awoke to verbal/tactile stim remained drowsy throughout eval. HOB raised upright for PO trials puree and thin liquids. Demo adequate oral access/containment, mildly prolonged bolus manipulation and bolus was orally cleared. Thin
liquids by straw sip swallow appears prompt. No overt s/sx of aspiration observed. Declined higher-level solid/chewable trials.
Recommend
1. May remain on regular solids/thin liquids, per physician
2. Aspiration precautions and meal set up with feeding assist as needed. Supervision i/s/o current mental status
3. Small bites and slow rate
4. Meds oral with sips of water
5. PACKAGER AND STRAPPER to follow up; monitor diet tolerance
[2023-10-22] MEDS: PROCARDIA XL (EXTENDED RELEASE) 30 MG PO ×2 (13:15→20:22)
[2023-10-22 14:21] LABS: Troponin I 0.499 ng/ml
--- NOTE | 2023-10-22 14:23 | CM ---
CM following re: discharge planning.
Discussed in Rounds, reviewed pt's chart, met with pt. Pt's , pt's son and daughter in law at bedside.
Pt is an 78 year old female, admitted with primary dx of Acute generalized tonic clonic seizure x 2 with postictal period
Patient reports that she lives with her in a one story home, has 3 supportive sons. There are two steps to enter. She is currently non ambulatory and uses a wheel chair. She requires assistance with self care and transfers which her
and son provide. In addition to her wheel chair, she has a rolling walker, commode and hospital bed. [facility] and has caregiver services on Wednesdays and Fridays.
PCP is Irish Reeder.
Pharmacy: [facility].
D/C plan: Pt's family feels that pt will return back home with VN, resumptions of caregivers services and family support.
CM will follow with discharge plan updates as hospitalization progresses
--- NOTE | 2023-10-22 15:02 | EEG.RPT ---
Electroencephalogram Report
Recording
Date of EE10/22/23
Type of EEG: Routine
Length of EEG recordin minutes
Done with Video Recording: Yes
Patient Status: Inpatient
Recording Conditions: Awake and Drowsy
Hyperventilation Performed: No
Photic Stimulation Performed: Yes
Report
LESS THAN 1 HOUR EEG REPORT
LESS THAN 1 HOUR EEG INTERPRETATION:
Likely unremarkable EEG for age
CLINICAL CORRELATION:
Although normative values not been established for a person of this advanced age, the patient�s symmetry of the background suggests that this study was unremarkable.
A normal EEG does not rule out a diagnosis of epilepsy. If clinical suspicion for seizure persists, a prolonged recording may be warranted.
Clinical correlation is advised.
METHODS:
A 21 channel digitized electroencephalogram (EEG) was performed using the 10/20 international system of electrode placement and one-lead of ECG recorded. The [employer] quantitative review system was utilized.
ELECTROENCEPHALOGRAPHER IMPRESSION(S):
Quality of study
Fair�poor due to muscle artifact nearly constantly throughout the study
Background
There was an unremarkable anterior-posterior voltage gradient of alpha frequency.
With eye opening the background activity changed to a low voltage mixture of frequencies.
There were no significant asymmetries of background activity noted.
Sleep
Drowsiness present
Photic Stimulation
No driving
ECG
Normal sinus rhythm
[2023-10-22] MEDS: RISPERDAL 0.25 MG PO ×2 (15:39→20:21)
[2023-10-22] MEDS: NEURONTIN 300 MG PO (15:39)
--- NOTE | 2023-10-22 16:15 | PTCARENOTE ---
Pt resting comfortably at present. Risperidal added per MD. Ok to take po meds w/ sips of water. Poor appetite. MRI ordered earlier. Remains on 2L N/C...sats 94%. Will continue to monitor closely.
--- NOTE | 2023-10-22 17:30 | PTCARENOTE ---
Tx to tele by .
[2023-10-22] MEDS: LIPITOR PO (18:14)
[2023-10-22] MEDS: VITAMIN B1 100 MG PO (20:21)
[2023-10-22] MEDS: NEURONTIN PO (22:24)
[2023-10-23] VITALS (13 sets, daily range): BP systolic 107–185; BP diastolic 72–107; BMI 24.3
--- NOTE | 2023-10-23 03:23 | PTCARENOTE ---
report given to 3w rn.
--- NOTE | 2023-10-23 04:08 | PTCARENOTE ---
Received pt from ICU via stretcher. Pt pulled over. AAOx1 - confused. SR on the monitor +2 B/L LE edema. weak pedals. Lungs decreased w/ fine crackles and some exp wheezes on 2L o2. Groin w/ noted MASD.
[2023-10-23 06:09] LABS: Hematocrit 28.7 % (37.0-47.0); Hemoglobin 9.5 g/dL (12.0-16.0); Mean Corp Hgb Conc. 33.1 g/dL (33.0-37.0); Mean Corpuscular Hgb 24.7 pg (27.0-31.0); Mean Corpuscular Volume 74.7 fL (81.0-99.0); Platelet Count 229 10^3/uL (130-400); Red Blood Cell Count 3.84 10^6/uL (4.20-5.40); Red Cell Dist. Width 18.4 % (11.5-14.5); White Blood Cell Count 9.4 10^3/uL (4.8-10.8)
[2023-10-23 07:04] LABS: Blood Urea Nitrogen 11 mg/dl (7-17); Calcium 9.2 mg/dl (8.4-10.2); Carbon Dioxide 28 mmol/L (22-30); Chloride 96 mmol/L (98-107); Estimated Creatinine Clearance 65 ml/min; Glucose 102 mg/dl (70-99); Potassium 2.5 mmol/L (3.5-5.1); Sodium 135 mmol/L (135-145); eGFR > 60.00
--- NOTE | 2023-10-23 08:05 | W.PN.NEURO.1 ---
Addendum entered and electronically signed by Christiano Ortiz MD 10/23/23 12:48:
I saw and evaluated the patient, reviewed the note by Kathleen August.
78 year old woman with history of previous seizure, anxiety on Alprazolam, hypertension, chronic pain presenting to hospital with 2 episodes of likely generalized seizure with loss of consciousness at home, confusion afterwards. Patient says she
lives at home and takes her medications but can't give any specifics on which medications including Alprazolam.
Patient is awake and alert, pleasant and not really showing any concern about recent medical events, little insight, understands she is in hospital, not able to give much history, doesn't want to name the president, no aphasia, obeys commands
consistently, no cranial nerve or motor deficits, no tongue lacerations.
EEG reviewed appears normal for age
Assessment: Suspicion for epilepsy at this point. Ddx includes psychogenic seizures and benzodiazepine withdrawal. 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
Recommendations
-Continue Lacosamide 150 mg BID
-MRI brain with and without contrast
-Neurologic checks
Original Note:
Documented by User: Kathleen August NP 10/23/23 12:26
Today's Communication / Plan
-
.
Neuro Assessment/Plan
Assessment
This is an 78-year-old female who presented to on 10/21/23 with abrupt onset of seizures with decline in mental status, variable symptoms, respiratory distress episodes, and chronic proximal tremor.
-CT head 10/21/23: No acute intracranial abnormalities. Findings again seen compatible with diffuse cortical atrophy with nonspecific white matter changes as described above.
-EEG 10/22/23: Likely unremarkable EEG for age.
I.� Seizure disorder with two breakthrough generalized seizures.
II.� Some concern for ischemic stroke given aphasia.
III.� Essential tremor
Plan
-MRI brain with and w/o contrast ordered/pending.
-Continue lacosamide 150mg BID.
-Seizure precautions.
-Neurological checks per unit guidelines.
-PT/OT/ST evaluations.
-DVT prophylaxis.
-Smoking cessation counseling, provide nicotine patch.
-Will follow pending results.
Subjective/Objective
Subjective Data
Date of Service: October 23, 2023
No acute events overnight. Patient is pleasantly confused. Denies headache, dizziness, speech/swallow difficulty, new numbness/weakness, chest pain, palpitations, and shortness of breath.
Objective Data
Vital Signs
Temp Pulse Resp BP Pulse Ox
98.1 F 98 18 185/88 95
10/23/23 07:30 10/23/23 07:30 10/23/23 07:30 10/23/23 07:30 10/23/23 07:30
Lab Results
10/23/23 05:43
10/23/23 05:43
PT 13.9 Sec (11.4-14.6) 10/22/23 04:22
INR 1.09 10/22/23 04:22
APTT 26.2 Sec (23.4-35.0) 10/22/23 04:22
Sodium 135 mmol/L (135-145) 10/23/23 05:43
Potassium 2.5 mmol/L (3.5-5.1) L* D 10/23/23 05:43
BUN 11 mg/dl (7-17) 10/23/23 05:43
Glucose 102 mg/dl (70-99) H 10/23/23 05:43
Calcium 9.2 mg/dl (8.4-10.2) 10/23/23 05:43
Pvo-T-Hduxanvmgoj Pept 85847 pg/ml 10/22/23 01:20
Patient Allergies
penicillin G Allergy (Verified 10/21/23 16:13)
Tongue Swelling
Penicillins Allergy (Verified 10/21/23 16:13)
Tongue Swelling
Review of Systems
-
History Source: Patient
EENT: Blurry Vision (left eye x1 month); Negative Decreased Vision or Swallowing Difficulty
Respiratory: Negative Cough or Trouble Breathing
Cardiac: Negative Chest Pain or Palpitations
Abdomen/GI: Negative Nausea
Genitourinary: Negative Dysuria
Neuro: Weakness (chronic BLE weakness), Numbness (chronic BLE numbness) and Tremors; Negative Dizzy, Headache, Ataxia or Speech Problem
Physical Exam
-
General: No Apparent Distress and Wearing Oxygen
Eyes: No Ptosis and PERRLA
HEENT: Normocephalic and Atraumatic
Neck: Full Range of Motion
Respiratory: No Dyspnea
GI: Non-distended
Extremities: No Clubbing, No Cyanosis and Edema +1 (BLE red/brown discoloration)
Psych: Confused
Extended Neurological Exam
Mood & Affect: Mood Unremarkable and Affect Unremarkable
Attention Span & Concentration: Awake, Alert, Interactive and Unable to Perform 2 Step Request
Memory: Reduced (oriented to person only)
Tremor: Hand Tremor Absent (essential tremor), Rhythmic Distal 3/sec, Intermittent, With Action and Worse with; Negative Head Tremor Absent (essential tremor)
Involuntary Movement: None
Speech: Quality Unremarkable, Rate of Production Unremarkable, Expressive Aphasia (some word-salad and perseveration) and Mildly Reduced Output
Cranial Nerve II: Left Eye: Pupillary Reactivity Unremarkable, Pupillary Size Unremarkable and Visual Rebollar Intact
Cranial Nerve II: Right Eye: Pupillary Reactivity Unremarkable, Pupillary Size Unremarkable and Visual Rebollar Intact
Cranial Nerves III, IV, : Extraocular Movement: Extraocular Movement Full in all Directions
Cranial Nerve VII: Facial Symmetry: Normal Facial Symmetry
Cranial Nerve VIII: Hearing: Unremarkable Hearing to Normal Conversational Volume
Cranial Nerves IX, X: Palate Movement: Palate Elevation Symmetric
Cranial Nerve XI: Shoulder Shrug: Unremarkable
Cranial Nerve XII: Tongue Protusion: Midline
Muscle Strength, Overall: Full in Upper Extremities and Other (BLE 2/5, poor effort)
Pronator Drift: No Drift in Upper Extremities and Unable to Assess (BLE)
Deep Tendon Reflexes: Unremarkable Throughout; Negative Clonus
Touch Sensation: Double Simultaneous Stimulation Unremarkable
Coordination: Cxrlta-hvhy-zocwal Testing Unremarkable
Babinski Sign: Absent Bilaterally
Gait & Station: Unable to Assess
Data Reviewed
-
CT Head: Report Reviewed and Image Reviewed
MRI Head: Ordered and Pending
MRI Lumbar Spine: Report Reviewed and Image Reviewed
Labs: Report Reviewed
Lipid Profile: Pending
HgbA1C: Pending
Reviewed with: Physician and Patient
NIH Stroke Score
Subsequent NIH Scale
Date of Subsequent NIH Scale: 10/23/23
Time of Subsequent NIH Scale: 09:00
NIH Stroke Score
Level of Consciousness: 0 - Alert
LOC Questions: 2-Neither correct
LOC Commands: 0-Performs both correctly
Best Horizontal Gaze: 0-Normal
Visual Rebollar: 0=Normal, no visual loss
Facial Palsy: 0=Normal, symmetrical
Motor - Right Arm: 0=No drift 10 seconds
Motor - Left Arm: 0=No drift 10 seconds
Motor - Right Le-None vs. gravity
Motor - Left Le-None vs. gravity
Limb Ataxia: 0-Absent
Sensation: 0-Normal
Best Language: 1-Mild aphasia
Dysarthria: 0-Normal
Extinction and Inattention: 0-No abnormality
Total Score:: 9
Medications
-
Active Medications
Generic Name Dose Route Start Last Admin
Trade Name Freq PRN Reason Stop Dose Admin
Hydrocodone Bitart/Acetaminophen 2 tablet 10/21/23 20:21 10/22/23 20:33
Hydrocodone 5 Mg/Acetaminophen 325 Mg Tablet PO 11/04/23 20:20 2 tablet
Q6HPRN PRN Administration
severe back pain
Alprazolam 0.5 mg 10/21/23 19:54 10/21/23 22:07
Alprazolam 0.5 Mg Tablet PO 11/18/23 19:53 0.5 mg
HSPRN PRN Administration
ANXIETY
Atorvastatin Calcium 10 mg 10/22/23 18:00 10/22/23 18:14
Atorvastatin (Lipitor) 10 Mg Tablet PO 11/19/23 17:59 Not Given
QPM DERRICK
Citalopram Hydrobromide 20 mg 10/22/23 08:00 10/23/23 09:03
Citalopram 10 Mg Tablet PO 11/19/23 07:59 20 mg
DAILY DERRICK Administration
Ferrous Sulfate 325 mg 10/22/23 08:00 10/22/23 09:09
Ferrous Sulfate 325 Mg Tablet PO 11/19/23 07:59 325 mg
Q48H DERRICK Administration
Gabapentin 300 mg 10/22/23 16:00 10/23/23 09:03
Gabapentin 300 Mg Capsule PO 11/19/23 15:59 300 mg
TID DERRICK Administration
Heparin Sodium 5,000 units 10/21/23 20:00 10/23/23 09:04
Heparin 5,000 Units/Ml 1 Ml Vial SC 11/18/23 19:59 5,000 units
Q12 DERRICK Administration
Hydralazine HCl 10 mg 10/22/23 11:35 10/22/23 13:15
Hydralazine 20 Mg/Ml Vial IV 11/19/23 11:34 10 mg
Q4HPRN PRN Administration
FOR SBP > 160 or DBP > 110
Potassium Chloride 40 meq/ 270 mls @ 67.5 mls/hr 10/23/23 09:44 10/23/23 10:01
Sodium Chloride IV 10/23/23 13:43 270 mls
NOW STA Administration
Lacosamide 150 mg 10/22/23 08:00 10/23/23 09:04
Lacosamide (Vimpat) 100 Mg Tablet PO 11/19/23 07:59 150 mg
BID DERRICK Administration
Lisinopril 40 mg 10/22/23 08:00 10/22/23 09:08
Lisinopril 20 Mg Tablet PO 11/19/23 07:59 40 mg
DAILY DERRICK Administration
Lorazepam 2 mg 10/22/23 18:01
Lorazepam 2 Mg/Ml Vial IV
Q5MPRN PRN
SEIZURE
Nicotine 14 mg 10/22/23 08:00 10/23/23 09:05
Nicotine 14 Mg Patch TRANSDERM 11/19/23 07:59 14 mg
DAILY DERRICK Administration
Nifedipine 30 mg 10/22/23 12:00 10/23/23 09:05
Nifedipine 30 Mg Extended Release Tablet PO 11/19/23 11:59 30 mg
BID DERRICK Administration
Polyethylene Glycol 17 grams 10/21/23 19:54
Polyethylene Glycol Powder 17 Grams Packet PO 11/18/23 19:53
DAILYPRN PRN
constipation
Risperidone 0.25 mg 10/22/23 14:00 10/23/23 09:02
Risperidone 0.25 Mg Tablet PO 11/19/23 13:59 0.25 mg
BID DERRICK Administration
Sodium Chloride 0 flush 10/21/23 20:00
Sodium Chloride 0.9% (Flush) Syringe IV 11/18/23 19:59
PER PROTOCOL DERRICK
Sodium Chloride 1 ml 10/22/23 18:01
Nss (Pf) 10 Ml Vial For Ativan 2 Mg Dose IV
Q5MPRN PRN
IV LORAZEPAM DILUTION
Thiamine HCl 100 mg 10/22/23 10:00 10/23/23 09:04
Thiamine 100 Mg Tablet PO 11/19/23 09:59 100 mg
BID DERRICK Administration
Home Medications
Medication Instructions Recorded
citalopram 20 mg tablet 20 mg PO DAILY Mental 03/09/21
Health/Anxiety
lisinopril 20 mg tablet 40 mg PO DAILY Blood pressure 03/09/21
multivitamin with folic acid 400 1 tab PO DAILY Supplement 03/09/21
mcg tablet (Tab-A-Charo)
alprazolam 0.5 mg tablet 0.5 mg PO HSPRN PRN ANXIETY #5 04/24/23
tabs
polyethylene glycol 3350 17 gram 17 g PO DAILY PRN constipation 05/11/23
oral powder packet (HealthyLax)
atorvastatin 10 mg tablet 10 mg PO QPM High cholesterol #30 05/24/23
tabs
gabapentin 300 mg capsule 300 mg PO TID neuropathy #0 caps 05/24/23
ferrous sulfate 325 mg (65 mg 325 mg PO Q48H Supplement 10/21/23
iron) tablet
hydrocodone 10 mg-acetaminophen 1 tab PO Q6H PRN severe back pain 10/21/23
325 mg tablet

Documented by User: Christiano Ortiz MD 10/23/23 12:41
NIH Stroke Score
NIH Stroke Score
Total Score:: 9
[2023-10-23] MEDS: RISPERDAL 0.25 MG PO ×2 (09:02→19:58)
[2023-10-23] MEDS: NEURONTIN 300 MG PO (09:03)
[2023-10-23] MEDS: CELEXA 20 MG PO (09:03)
[2023-10-23] MEDS: VITAMIN B1 100 MG PO ×2 (09:04→19:58)
[2023-10-23] MEDS: HEPARIN 5000 UNITS SC ×2 (09:04→19:58)
[2023-10-23] MEDS: VIMPAT 150 MG PO ×2 (09:04→19:58)
[2023-10-23] MEDS: PROCARDIA XL (EXTENDED RELEASE) 30 MG PO ×2 (09:05→19:58)
[2023-10-23] MEDS: NICODERM TRANSDERMAL 14 MG TRANSDERM (09:05)
[2023-10-23] MEDS: ZESTRIL 40 MG PO (09:15)
[2023-10-23] MEDS: KLOR-CON 40 MEQ PO (09:58)
[2023-10-23] MEDS: KCL 270 MEQ IV (10:01)
[2023-10-23 10:22] LABS: Magnesium 1.6 mg/dl (1.6-2.3); Phosphorus 2.8 mg/dl (2.5-4.5)
[2023-10-23 11:02] LABS: Troponin I 0.277 ng/ml
[2023-10-23 11:25] LABS: HDL Cholesterol 57 mg/dl; LDL Cholesterol, Calculated 28 mg/dl; Total Cholesterol 111 mg/dl (50-199); Triglyceride 134 mg/dl (10-149); Very Low Density Lipoprotein 26 mg/dl (0-30)
[2023-10-23 11:52] LABS: Glycohemoglobin (HgbA1c) 5.2 % (4.0-5.6)
[2023-10-23 12:17] LABS: Iron 39 ug/dl (37-170)
[2023-10-23 12:28] LABS: Percent Saturation 11 % (20-50); Total Iron Binding Capacity 331 ug/dl (265-497)
--- NOTE | 2023-10-23 12:57 | W.PN.HOSP.TC ---
Today's Communication/Plan
-
f/u MRI brain
hold gabapentin
replace K
Assessment / Plan
Assessment / Plan
1. Seizure episode - GTCS
History of prior seizure
-Patient remains awake although disoriented and not able to provide any clear information
-CT head shows no acute intracranial abnormalities
-Neurology evaluated and recommended MRI head without contrast - pending and EEG - negative.
-Continue seizure prophylaxis
-Patient lacosamide dose increased to 150 mg twice daily
2. Acute on chronic diastolic HF
Acute hypoxic resp failure
-TTE in May 10 showing preserved EF and preserved diastolic function
-proBNP elevated to 17.8K , which was 500 in may 10
-Patient had rapid response for new onset of dyspnea/hypoxia and panic episode from the
-Checks x-ray showing possible mild HF
-TTE showing EF 50 to 55%, pulm artery pressure of 40-45. No major valvular abnormalities
-Hold on IV lasix today.
3. Hypertensive urgency -improved
-Continue lisinopril, adding nifedipine XL to regimen
-As needed hydralazine ordered
4. L5 compression fracture
Severe spinal stenosis
Wheelchair bound
-Patient has been wheelchair-bound for last 6 to 8 months
-In June 09 patient was found to having severe lumbar spinal stenosis and was evaluated by Dr. Robledo, reports that reason Dr. Robledo could not do the surgery and had to switch to [facility] group -Per family [facility] group physician did not feel patient
was a candidate for any surgical intervention
-Currently patient following with Dr. Plascencia for pain control who is planning to do a spinal stimulator placement
-Adding oral pain medication for pain control
5. Troponin elevation
-trop max of 0.49, trending down
-EKG did not showing any ST/T wave change
-TTE did not show regional wall motion defect
6. TME
-Remains disoriented to time place and person.
-Suspected postictal versus medication induced
-Gabpentin holding. xanax small dose at HS continued.
7. Hypokalemia
- replace with IV and oral 40meq K, f/u k/mg
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
Hyperlipidemia
GERD
History of abdominal aortic aneurysm status post stent placement
Chronic peripheral edema secondary to immobility/venous stasis
Anxiety/depression -Continue Xanax/citalopram
Chronic microcytic anemia
Nicotine use disorder
History of euthyroid sick syndrome
History of mesenteric ischemia
History of breast cancer s/p lumpectomy/chemo
Full code
DVT prophylaxis�heparin
.
Anticipated Discharge: 24 - 48 hours
Subjective/Interval History
-
Date of Service: October 23, 2023
remains pleasantly disoriented
on o2 through [place]
no reported seizure episode. no other acute issues
Objective Data
-
Labs:
Laboratory Results
10/23/23
05:43
WBC 9.4
Hgb 9.5 L
Hct 28.7 L
Plt Count 229 D
Sodium 135
Potassium 2.5 L* D
Chloride 96 L
Carbon Dioxide 28
BUN 11
Creatinine 0.4 L
Glucose 102 H
Calcium 9.2
Vital Signs:
Vital Signs
Temp Pulse Resp BP Pulse Ox
97.7 F 98 16 149/82 98
10/23/23 12:00 10/23/23 12:00 10/23/23 12:00 10/23/23 12:00 10/23/23 12:00
I&O
10/22/23 10/23/23 10/24/23
06:59 06:59 06:59
Intake Total 100 / 100 240 / 240
Output Total 1800 / 1950 3475 / 3475
Balance -1700 / -1850 -3235 / -3235
Review of Systems
-
Unable to obtain full review of systems at this time due to: Acuity
Physical Exam
-
General: Comfortable and Cachectic
HEENT: Oxygen
Respiratory: Rhonchi
Cardiac: Regular Rhythm and S1/S2; Negative Murmur or Rub
GI: Soft, Nontender and Nondistended
Musculoskeletal: Edema, Right Lower Extrem, Edema, Left Lower Extrem and Other (b/l LE skin changes of chronic venous stasis)
Neuro: Awake, Alert, No Motor Deficits and Nonfocal/Grossly Intact
Psych: Calm
[2023-10-23 13:46] LABS: Ferritin 42.9 ng/ml (11.1-264.0)
--- NOTE | 2023-10-23 16:27 | CM ---
Addendum entered by Crystal Munguia 10/24/23 16:08:
PT -recs HH vs SNF
Spoke to pt and her - prefer home with HH
TT sent to [facility] liaison for HH services
Plan - home with [facility]
Original Note:
CM reviewed chart
PT/OT recs pending
Known to [facility]
Plan - tbd - pending PT/OT recs
[2023-10-23] MEDS: APRESOLINE 10 MG IV (17:05)
[2023-10-23] MEDS: LIPITOR 10 MG PO (17:11)
[2023-10-24] VITALS (7 sets, daily range): BP systolic 143–160; BP diastolic 73–86; PULSE 102; O2SAT 95; BMI 22.9
[2023-10-24] MEDS: NORCO 5/325 2 TABLET PO ×2 (00:16→20:13)
[2023-10-24 06:10] LABS: Hematocrit 30.4 % (37.0-47.0); Hemoglobin 10.2 g/dL (12.0-16.0); Mean Corp Hgb Conc. 33.6 g/dL (33.0-37.0); Mean Corpuscular Volume 74.5 fL (81.0-99.0); Mean Platelet Volume 9.9 fL (7.4-10.4); Platelet Count 244 10^3/uL (130-400); Red Blood Cell Count 4.08 10^6/uL (4.20-5.40); Red Cell Dist. Width 18.5 % (11.5-14.5); White Blood Cell Count 9.7 10^3/uL (4.8-10.8)
[2023-10-24 06:35] LABS: Blood Urea Nitrogen 11 mg/dl (7-17); Calcium 9.2 mg/dl (8.4-10.2); Carbon Dioxide 25 mmol/L (22-30); Chloride 99 mmol/L (98-107); Estimated Creatinine Clearance 65 ml/min; Glucose 108 mg/dl (70-99); Potassium 2.8 mmol/L (3.5-5.1); Sodium 133 mmol/L (135-145); eGFR > 60.00
[2023-10-24] MEDS: HEPARIN 5000 UNITS SC ×2 (08:17→20:09)
[2023-10-24] MEDS: PROCARDIA XL (EXTENDED RELEASE) 30 MG PO ×2 (08:18→20:09)
[2023-10-24] MEDS: VITAMIN B1 100 MG PO ×2 (08:18→20:09)
[2023-10-24] MEDS: CELEXA 20 MG PO (08:18)
[2023-10-24] MEDS: NICODERM TRANSDERMAL 14 MG TRANSDERM (08:18)
[2023-10-24] MEDS: RISPERDAL 0.25 MG PO ×2 (08:18→20:09)
[2023-10-24] MEDS: FEOSOL 325 MG PO (08:18)
[2023-10-24] MEDS: ZESTRIL 40 MG PO (08:19)
[2023-10-24] MEDS: VIMPAT 150 MG PO ×2 (08:19→20:10)
--- NOTE | 2023-10-24 11:23 | W.PN.HOSP.TC ---
Today's Communication/Plan
-
pt/ot eval
discharge planning
Assessment / Plan
Assessment / Plan
MRI brain
No evidence of acute intracranial abnormality. No evidence for metastatic disease.
Moderate atrophy.
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
Old infarct in the left thalamus.
There are multiple small foci of CSF signal intensity within the lentiform nuclei and caudate nuclei bilaterally, compatible with prominent perivascular spaces and/or old lacunar infarcts.

1. Seizure episode - GTCS
History of prior seizure
-Patient remains awake although disoriented and not able to provide any clear information
-CT head shows no acute intracranial abnormalities
-Neurology evaluated and recommended MRI head without contrast as above and EEG - negative.
-Continue seizure prophylaxis
-Patient lacosamide dose increased to 150 mg twice daily
2. Acute on chronic diastolic HF
Acute hypoxic resp failure
-TTE in May 10 showing preserved EF and preserved diastolic function
-proBNP elevated to 17.8K , which was 500 in may 10
-Patient had rapid response for new onset of dyspnea/hypoxia and panic episode from the
-Checks x-ray showing possible mild HF
-TTE showing EF 50 to 55%, pulm artery pressure of 40-45. No major valvular abnormalities
-Hold on IV lasix today.
3. Hypertensive urgency -improved
-Continue lisinopril, adding nifedipine XL to regimen
-As needed hydralazine ordered
4. L5 compression fracture
Severe spinal stenosis
Wheelchair bound
-Patient has been wheelchair-bound for last 6 to 8 months
-In June 09 patient was found to having severe lumbar spinal stenosis and was evaluated by Dr. Robledo, reports that reason Dr. Robledo could not do the surgery and had to switch to [facility] -Per family [facility] group physician did not feel patient
was a candidate for any surgical intervention
-Currently patient following with Dr. Plascencia for pain control who is planning to do a spinal stimulator placement
-Adding oral pain medication for pain control
5. Troponin elevation
-trop max of 0.49, trending down
-EKG did not showing any ST/T wave change
-TTE did not show regional wall motion defect
6. TME
-Remains disoriented to time place and person.
-Suspected postictal versus medication induced
-Gabpentin holding. xanax small dose at HS continued.
7. Hypokalemia
- replace with IV and oral 40meq K, f/u k/mg
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
Hyperlipidemia
GERD
History of abdominal aortic aneurysm status post stent placement
Chronic peripheral edema secondary to immobility/venous stasis
Anxiety/depression -Continue Xanax/citalopram
Chronic microcytic anemia
Nicotine use disorder
History of euthyroid sick syndrome
History of mesenteric ischemia
History of breast cancer s/p lumpectomy/chemo
Full code
DVT prophylaxis�heparin
10/22 updated.
Anticipated Discharge: Within 24 hours
Subjective/Interval History
-
Date of Service: October 24, 2023
denies of problems
Objective Data
-
Labs:
Laboratory Results
10/24/23
05:44
WBC 9.7
Hgb 10.2 L
Hct 30.4 L
Plt Count 244
Sodium 133 L
Potassium 2.8 L
Chloride 99
Carbon Dioxide 25
BUN 11
Creatinine 0.4 L
Glucose 108 H
Calcium 9.2
Vital Signs:
Vital Signs
Temp Pulse Resp BP Pulse Ox
97.8 F 94 16 143/75 95
10/24/23 11:00 10/24/23 11:00 10/24/23 11:00 10/24/23 11:00 10/24/23 11:00
I&O
10/23/23 10/24/23 10/25/23
06:59 06:59 06:59
Intake Total 240 / 240 1220 / 1220
Output Total 3475 / 3475
Balance -3235 / -3235 1220 / 1220
Review of Systems
-
Unable to obtain full review of systems at this time due to: Dementia
Physical Exam
-
General: Comfortable and Cachectic
HEENT: Oxygen
Respiratory: Clear to Auscultation
Cardiac: Regular Rhythm and S1/S2; Negative Murmur or Rub
GI: Soft, Nontender and Nondistended
Musculoskeletal: Other (b/l LE skin changes of chronic venous stasis)
Neuro: Awake, Alert, No Motor Deficits and Nonfocal/Grossly Intact
Psych: Calm
--- NOTE | 2023-10-24 11:56 | W.PN.NEURO.1 ---
Today's Communication / Plan
-
-Continue Lacosamide 150 mg BID
-Outpatient neurology follow up with consideration for neuropsychologic testing given concern for vascular cognitive impairment/dementia
-No further workup recommended
Will sign off call with questions and concerns
Neuro Assessment/Plan
Assessment
This is an 78-year-old female who presented to on 10/21/23 with abrupt onset of seizures with decline in mental status, variable symptoms, respiratory distress episodes, and chronic proximal tremor.
-CT head 10/21/23: No acute intracranial abnormalities. Findings again seen compatible with diffuse cortical atrophy with nonspecific white matter changes as described above.
-EEG 10/22/23: Likely unremarkable EEG for age.
MRI brain with no acute stroke, shows severe chronic ischemic changes throughout brain
Most likely has epilepsy, currently uncontrolled, without status epilepticus
Observed neurologic exam with cognitive impairment and severe chronic ischemic changes on brain MRI lead me to diagnose patietn with vascular cogntive impairment at the last and probably dementia
Subjective/Objective
Subjective Data
Date of Service: October 24, 2023
No acute events overnight, patient with no complaints currently
Objective Data
Vital Signs
Temp Pulse Resp BP Pulse Ox
97.8 F 94 16 143/75 95
10/24/23 11:00 10/24/23 11:00 10/24/23 11:00 10/24/23 11:00 10/24/23 11:00
Lab Results
10/24/23 05:44
10/24/23 05:44
PT 13.9 Sec (11.4-14.6) 10/22/23 04:22
INR 1.09 10/22/23 04:22
APTT 26.2 Sec (23.4-35.0) 10/22/23 04:22
Sodium 133 mmol/L (135-145) L 10/24/23 05:44
Potassium 2.8 mmol/L (3.5-5.1) L 10/24/23 05:44
BUN 11 mg/dl (7-17) 10/24/23 05:44
Glucose 108 mg/dl (70-99) H 10/24/23 05:44
Calcium 9.2 mg/dl (8.4-10.2) 10/24/23 05:44
Phosphorus 2.8 mg/dl (2.5-4.5) 10/23/23 05:43
Jji-V-Yluggdlwqcg Pept 32785 pg/ml 10/22/23 01:20
LDL Cholesterol, Calc 28 mg/dl 10/23/23 05:43
Patient Allergies
penicillin G Allergy (Verified 10/21/23 16:13)
Tongue Swelling
Penicillins Allergy (Verified 10/21/23 16:13)
Tongue Swelling
Review of Systems
-
History Source: Patient
All other systems: Reviewed and negative
Constitutional: No Symptoms
EENT: No Symptoms Reported
Respiratory: No Symptoms
Cardiac: No Symptoms
Abdomen/GI: No Symptoms
Genitourinary: No Symptoms
Musculoskeletal: No Symptoms
Skin: No Symptoms
Neuro: See existing Neuro Note
Endocrine: No Symptoms
Hematologic / Lymphatic: No Symptoms
Allergy / Immunology: No Symptoms
Physical Exam
-
General: No Apparent Distress
Eyes: No Ptosis
HEENT: Normocephalic
Neck: No Bruits Bilaterally
Respiratory: Clear to Auscultation
Cardiac: Regular Rhythm
GI: Normal Bowel Sounds
Skin: Unremarkable
Extremities: No Edema
Psych: Apparent Dementia
Extended Neurological Exam
Mood & Affect: Mood Unremarkable and Affect Unremarkable
Attention Span & Concentration: Other (Pleasant, says she lives with her father who is 40, knows in hospital, little insight, impaired short term memory, unable to complete complicated tasks, )
Memory: Vague and Incomplete Historian
Tremor: Hand Tremor Absent
Involuntary Movement: None
Speech: Quality Unremarkable and Quantity Unremarkable; Negative Expressive Aphasia, Receptive Aphasia or Dysarthric
Cranial Nerve II: Left Eye: Pupillary Reactivity Unremarkable and Pupillary Size Unremarkable
Cranial Nerve II: Right Eye: Pupillary Reactivity Unremarkable and Pupillary Size Unremarkable
Cranial Nerves III, IV, : Extraocular Movement: Extraocular Movement Full in all Directions
Cranial Nerve VII: Facial Symmetry: Normal Facial Symmetry
Cranial Nerve VIII: Hearing: Unremarkable Hearing to Normal Conversational Volume
Muscle Strength, Overall: Full Throughout
Muscle Bulk & Tone: Bulk Unremarkable
Pronator Drift: No Drift in Upper Extremities
Touch Sensation: Unremarkable
Data Reviewed
-
CT Head: Report Reviewed and Image Reviewed
MRI Head: Report Reviewed and Image Reviewed
EEG: Pending and Report Reviewed
[2023-10-24] MEDS: KCL 40 MEQ PO (13:13)
--- NOTE | 2023-10-24 16:22 | VNURNOTE ---
[facility] referral completed in [facility] after review of chart.
[2023-10-24 16:34] LABS: Potassium 2.8 mmol/L (3.5-5.1)
[2023-10-24] MEDS: LIPITOR 10 MG PO (16:56)
[2023-10-25 06:10] VITALS: BMI 21.4
[2023-10-25 07:24] VITALS: BP 177/94
[2023-10-25] MEDS: NICODERM TRANSDERMAL 14 MG TRANSDERM (07:24)
[2023-10-25] MEDS: VITAMIN B1 100 MG PO ×2 (07:24→21:00)
[2023-10-25] MEDS: HEPARIN 5000 UNITS SC ×2 (07:24→20:59)
[2023-10-25] MEDS: CELEXA 20 MG PO (07:24)
[2023-10-25] MEDS: VIMPAT 150 MG PO ×2 (07:25→21:00)
[2023-10-25] MEDS: RISPERDAL 0.25 MG PO ×2 (07:25→21:00)
[2023-10-25] MEDS: PROCARDIA XL (EXTENDED RELEASE) 30 MG PO ×2 (07:26→21:00)
[2023-10-25] MEDS: ZESTRIL 40 MG PO (07:27)
[2023-10-25 08:10] LABS: Hematocrit 33.5 % (37.0-47.0); Hemoglobin 10.9 g/dL (12.0-16.0); Mean Corp Hgb Conc. 32.5 g/dL (33.0-37.0); Mean Corpuscular Hgb 24.8 pg (27.0-31.0); Mean Corpuscular Volume 76.3 fL (81.0-99.0); Mean Platelet Volume 10.2 fL (7.4-10.4); Platelet Count 261 10^3/uL (130-400); Red Blood Cell Count 4.39 10^6/uL (4.20-5.40); Red Cell Dist. Width 18.3 % (11.5-14.5)
[2023-10-25 08:32] LABS: Blood Urea Nitrogen 13 mg/dl (7-17); Calcium 9.2 mg/dl (8.4-10.2); Carbon Dioxide 30 mmol/L (22-30); Chloride 100 mmol/L (98-107); Estimated Creatinine Clearance 65 ml/min; Glucose 101 mg/dl (70-99); Potassium 2.9 mmol/L (3.5-5.1); Sodium 136 mmol/L (135-145); eGFR > 60.00
--- NOTE | 2023-10-25 09:52 | W.PN.HOSP.TC ---
Today's Communication/Plan
-
provide aldactone
provide K replacement
discharge home with HH
Assessment / Plan
Assessment / Plan
MRI brain
No evidence of acute intracranial abnormality. No evidence for metastatic disease.
Moderate atrophy.
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
Old infarct in the left thalamus.
There are multiple small foci of CSF signal intensity within the lentiform nuclei and caudate nuclei bilaterally, compatible with prominent perivascular spaces and/or old lacunar infarcts.

1. Seizure episode - GTCS
History of prior seizure
-Patient remains awake although disoriented and not able to provide any clear information
-CT head shows no acute intracranial abnormalities
-Neurology evaluated and recommended MRI head without contrast as above and EEG - negative.
-Continue seizure prophylaxis
-Patient lacosamide dose increased to 150 mg twice daily
2. Acute on chronic diastolic HF
Acute hypoxic resp failure
-TTE in May 10 showing preserved EF and preserved diastolic function
-proBNP elevated to 17.8K , which was 500 in may 10
-Patient had rapid response for new onset of dyspnea/hypoxia and panic episode from the
-Checks x-ray showing possible mild HF
-TTE showing EF 50 to 55%, pulm artery pressure of 40-45. No major valvular abnormalities
-stop further lasix, no need continuation at discharge.
3. Hypertensive urgency -improved
-Continue lisinopril, adding nifedipine XL to regimen
-With associated hypokalemia may have component of hyperaldosteronism. Adding small dose of Aldactone
4. L5 compression fracture
Severe spinal stenosis
Wheelchair bound
-Patient has been wheelchair-bound for last 6 to 8 months
-In June 09 patient was found to having severe lumbar spinal stenosis and was evaluated by Dr. Robledo, reports that reason Dr. Robledo could not do the surgery and had to switch to [facility] -Per family [facility] physician did not feel patient
was a candidate for any surgical intervention
-Currently patient following with Dr. Plsacencia for pain control who is planning to do a spinal stimulator placement
-Adding oral pain medication for pain control
5. Troponin elevation
-trop max of 0.49, trending down
-EKG did not showing any ST/T wave change
-TTE did not show regional wall motion defect
6. TME resolved
dementia
-Remains disoriented to time place and person.
-MRI brain images reviewed and patient has significant cerebral atrophy although not formally diagnosed patient have apparent dementia.
7. Hypokalemia -recurrent
- replace with 80meq K today
- last mag 1.6 2 days back, recehck
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
Hyperlipidemia
GERD
History of abdominal aortic aneurysm status post stent placement
Chronic peripheral edema secondary to immobility/venous stasis
Anxiety/depression -Continue Xanax/citalopram
Chronic microcytic anemia
Nicotine use disorder
History of euthyroid sick syndrome
History of mesenteric ischemia
History of breast cancer s/p lumpectomy/chemo
Full code
DVT prophylaxis�heparin
10/22 updated.
called x 2 goes to [facility].
Patient medically cleared to discharge to home with home health care
Anticipated Discharge: Today
Subjective/Interval History
-
Date of Service: October 25, 2023
Patient remains pleasantly disordered
No acute issues reported
Objective Data
-
Labs:
Laboratory Results
10/25/23
07:10
WBC 6.0
Hgb 10.9 L
Hct 33.5 L
Plt Count 261
Sodium 136
Potassium 2.9 L
Chloride 100
Carbon Dioxide 30
BUN 13
Creatinine 0.4 L
Glucose 101 H
Calcium 9.2
Vital Signs:
Vital Signs
Temp Pulse Resp BP Pulse Ox
98.0 F 88 16 177/94 95
10/25/23 07:24 10/25/23 07:27 10/25/23 07:24 10/25/23 07:27 10/25/23 07:24
I&O
10/24/23 10/25/23 10/26/23
06:59 06:59 07:59
Intake Total 1220 / 1220 840 / 840
Balance 1220 / 1220 840 / 840
Review of Systems
-
Unable to obtain full review of systems at this time due to: Dementia
Physical Exam
-
General: Comfortable and Cachectic
HEENT: Oxygen
Respiratory: Clear to Auscultation
Cardiac: Regular Rhythm and S1/S2; Negative Murmur or Rub
GI: Soft, Nontender and Nondistended
Musculoskeletal: Other (b/l LE skin changes of chronic venous stasis)
Neuro: Awake, Alert, No Motor Deficits and Nonfocal/Grossly Intact
Psych: Calm
[2023-10-25] MEDS: KCL 40 MEQ PO ×2 (10:57→13:15)
[2023-10-25] MEDS: ALDACTONE 12.5 MG PO (10:57)
[2023-10-25] MEDS: NORCO 5/325 2 TABLET PO ×2 (11:08→21:00)
[2023-10-25 13:43] LABS: Magnesium 1.6 mg/dl (1.6-2.3)
[2023-10-25 15:37] VITALS: BP 150/90
[2023-10-25] MEDS: LIPITOR 10 MG PO (16:55)
[2023-10-25 17:18] LABS: Potassium 3.5 mmol/L (3.5-5.1)
[2023-10-25 23:10] VITALS: BP 155/80
[2023-10-26 06:04] VITALS: BMI 21.2
[2023-10-26 07:00] VITALS: BP 171/93
[2023-10-26 07:22] LABS: Hematocrit 33.5 % (37.0-47.0); Hemoglobin 10.8 g/dL (12.0-16.0); Mean Corp Hgb Conc. 32.2 g/dL (33.0-37.0); Mean Corpuscular Hgb 24.9 pg (27.0-31.0); Mean Corpuscular Volume 77.2 fL (81.0-99.0); Mean Platelet Volume 10.4 fL (7.4-10.4); Platelet Count 259 10^3/uL (130-400); Red Blood Cell Count 4.34 10^6/uL (4.20-5.40); Red Cell Dist. Width 18.6 % (11.5-14.5); White Blood Cell Count 5.4 10^3/uL (4.8-10.8)
[2023-10-26 07:52] LABS: Blood Urea Nitrogen 16 mg/dl (7-17); Calcium 9.1 mg/dl (8.4-10.2); Carbon Dioxide 27 mmol/L (22-30); Chloride 107 mmol/L (98-107); Estimated Creatinine Clearance 65 ml/min; Glucose 95 mg/dl (70-99); Potassium 3.6 mmol/L (3.5-5.1); Sodium 135 mmol/L (135-145); eGFR > 60.00
[2023-10-26] MEDS: CELEXA 20 MG PO (08:18)
[2023-10-26] MEDS: NICODERM TRANSDERMAL 14 MG TRANSDERM (08:18)
[2023-10-26] MEDS: VITAMIN B1 100 MG PO (08:18)
[2023-10-26] MEDS: FEOSOL 325 MG PO (08:18)
[2023-10-26] MEDS: RISPERDAL 0.25 MG PO (08:18)
[2023-10-26] MEDS: VIMPAT 150 MG PO (08:19)
[2023-10-26] MEDS: ZESTRIL 40 MG PO (08:19)
[2023-10-26] MEDS: PROCARDIA XL (EXTENDED RELEASE) 30 MG PO (08:19)
[2023-10-26] MEDS: HEPARIN 5000 UNITS SC (08:19)
[2023-10-26] MEDS: ALDACTONE 12.5 MG PO (08:20)
[2023-10-26] MEDS: NORCO 5/325 2 TABLET PO (08:39)
--- NOTE | 2023-10-26 10:07 | CM ---
Addendum entered by Melissa Finley 10/26/23 10:18:
IMM explained and signed
Original Note:
Plan: discharge to home with home health services from [facility]; son will transport mother home via private vehicle
--- NOTE | 2023-10-26 11:39 | W.PN.HOSP.TC ---
Today's Communication/Plan
-
d/c home with HH
Assessment / Plan
Assessment / Plan
MRI brain
No evidence of acute intracranial abnormality. No evidence for metastatic disease.
Moderate atrophy.
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
Old infarct in the left thalamus.
There are multiple small foci of CSF signal intensity within the lentiform nuclei and caudate nuclei bilaterally, compatible with prominent perivascular spaces and/or old lacunar infarcts.

1. Seizure episode - GTCS
History of prior seizure
-Patient remains awake although disoriented and not able to provide any clear information
-CT head shows no acute intracranial abnormalities
-Neurology evaluated and recommended MRI head without contrast as above and EEG - negative.
-Continue seizure prophylaxis
-Patient lacosamide dose increased to 150 mg twice daily
2. Acute on chronic diastolic HF
Acute hypoxic resp failure
-TTE in May 10 showing preserved EF and preserved diastolic function
-proBNP elevated to 17.8K , which was 500 in may 10
-Patient had rapid response for new onset of dyspnea/hypoxia and panic episode from the
-Checks x-ray showing possible mild HF
-TTE showing EF 50 to 55%, pulm artery pressure of 40-45. No major valvular abnormalities
-stop further lasix, no need continuation at discharge.
3. Hypertensive urgency -improved
-Continue lisinopril, adding nifedipine XL to regimen
-With associated hypokalemia may have component of hyperaldosteronism. Adding small dose of Aldactone
4. L5 compression fracture
Severe spinal stenosis
Wheelchair bound
-Patient has been wheelchair-bound for last 6 to 8 months
-In June 09 patient was found to having severe lumbar spinal stenosis and was evaluated by Dr. Robldeo, reports that reason Dr. Robledo could not do the surgery and had to switch to [facility] -Per family [facility] physician did not feel patient
was a candidate for any surgical intervention
-Currently patient following with Dr. Plascencia for pain control who is planning to do a spinal stimulator placement
-Adding oral pain medication for pain control
5. Troponin elevation
-trop max of 0.49, trending down
-EKG did not showing any ST/T wave change
-TTE did not show regional wall motion defect
6. TME resolved
dementia
-Remains disoriented to time place and person.
-MRI brain images reviewed and patient has significant cerebral atrophy although not formally diagnosed patient have apparent dementia.
7. Hypokalemia -recurrent
- potassium normal today. appropriate oral intake
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
Hyperlipidemia
GERD
History of abdominal aortic aneurysm status post stent placement
Chronic peripheral edema secondary to immobility/venous stasis
Anxiety/depression -Continue Xanax/citalopram
Chronic microcytic anemia
Nicotine use disorder
History of euthyroid sick syndrome
History of mesenteric ischemia
History of breast cancer s/p lumpectomy/chemo
Full code
DVT prophylaxis�heparin
updated.
More than 30 minutes spent in discharge including
Final examination of the patient
Summarizing hospital stay
Instructions for continuing care to all relevant caregivers
Preparation of discharge records, prescriptions, and referral forms
Total time spent (in minutes): 38 mins
Anticipated Discharge: Today
Subjective/Interval History
-
Date of Service: October 26, 2023
no acute issues overnight
Objective Data
-
Labs:
Laboratory Results
10/26/23
06:16
WBC 5.4
Hgb 10.8 L
Hct 33.5 L
Plt Count 259
Sodium 135
Potassium 3.6
Chloride 107
Carbon Dioxide 27
BUN 16
Creatinine 0.5 L
Glucose 95
Calcium 9.1
Vital Signs:
Vital Signs
Temp Pulse Resp BP Pulse Ox
98.7 F 91 18 171/93 95
10/26/23 07:00 10/26/23 08:20 10/26/23 07:00 10/26/23 08:20 10/26/23 07:00
I&O
10/25/23 10/26/23 10/27/23
05:59 06:59 06:59
Intake Total
Balance
Review of Systems
-
Unable to obtain full review of systems at this time due to: Dementia and Acuity
Physical Exam
-
General: Comfortable and Cachectic
HEENT: Oxygen
Respiratory: Clear to Auscultation
Cardiac: Regular Rhythm and S1/S2; Negative Murmur or Rub
GI: Soft, Nontender and Nondistended
Musculoskeletal: Other (b/l LE skin changes of chronic venous stasis)
Neuro: Awake, Alert, No Motor Deficits and Nonfocal/Grossly Intact
Psych: Calm
--- NOTE | 2023-10-26 13:51 | W.DCSUMMARY ---
Discharge Summary
Discharge Data
Date of Admission: 10/21/23
Date of Discharge: 10/26/23
-
Pending Results: No
Hospital Course
Discharging Physician : Dr Dk Marrero
Disposition : Home with home care
Primary care physician : Dr Irish Reeder
Principal Discharge diagnosis :
Generalized tonic-clonic seizure episode
Presumed epilepsy
Acute on chronic diastolic congestive heart failure
Acute hypoxic respiratory failure
Hypertensive urgency
Recurrent hypokalemia
Troponin elevation
Chronic Discharge diagnosis :
Lumbar spine 5 compression fracture
Severe spinal stenosis
Wheelchair-bound
Apparent dementia, vascular versus senile
History of chronic lacunar infarcts
Hyperlipidemia
Gastroesophageal reflux disease
History of abdominal aortic aneurysm s/p stent placement
Anxiety/depression
Chronic microcytic anemia
Tobacco use disorder
History of mesenteric ischemia
History of breast cancer s/p lumpectomy/radiation
Hospital Course :
Patient is 78-year-old female with above-mentioned past medical history was brought in by EMS after noted to having a witnessed generalized tonic-clonic seizures. Patient had total of 2 episode on day of ER visit. Patient does have history of
previous tonic-clonic seizure 1-1/2 years ago and was felt to be related to electrolyte imbalance at that time. Patient had a CT head in ER which was negative for any acute abnormalities. Patient was admitted to telemetry floor and neurology was
involved in care. Patient was started on Vimpat per neurology recommendation. Post admission patient started to having new onset respiratory distress and rapid response was called, patient was found to having pulmonary edema and hypoxic
respiratory failure from it. Patient was started on IV diuretic therapy and was transferred to ICU for close monitoring. Follow-up echocardiogram showing preserved EF of 50 to 55% with moderate pulmonary hypertension. Post improvement of hypoxia
patient was taken off of Lasix. For seizure workup patient had MRI brain and EEG both were negative. No further episodes of seizure occurred. Patient does have apparent dementia based on clinical course this admission and MRI brain was showing
significant cerebral atrophy to support this. Of note patient also has been wheelchair-bound for approximately 5 to 6-month after having severe lumbar spinal stenosis, per son patient is not a candidate for surgery and was evaluated by spinal
surgery. Patient was evaluated by physical therapy and was appropriate for rehab although patient spouse preferred for patient to be taken home with home care.
Patient also had problem with hypertension and recurrent hypokalemia this admission. Hypokalemia likely contributed by decreased oral intake although component of primary hyperaldosteronism difficult to be ruled out. Aldactone was added to regimen
for this reason. Patient may require further nephrology Workup if continued to have resistant hypertension.
Important imaging findings :
None
Procedure findings :
None
Discharge Plan
-
Patient Disposition: Home with Home Care
Discharge Diagnosis/Procedures: seizure episode , Acute on chronic diastolic HF, L5 compression fracture, sev spinal stenosis
Condition: Fair
Diet: Regular
Activity: As tolerated
Driving Restrictions: No driving
Bathing Restrictions: OK to Shower
Blood Work: BMP check with PCP office
Other Services: VN and PT
Referrals:
Irish Reeder MD [Family Provider] - in one week
Lina Noble DO [Active] -
Prescriptions:
New
risperidone 0.25 mg Tablet
0.25 mg PO BID Qty: 60 0RF
nifedipine 30 mg Tablet Extended Release
30 mg PO BID Qty: 60 0RF
spironolactone 25 mg Tablet
12.5 mg PO DAILY Qty: 30 0RF
lacosamide 100 mg Tablet
150 mg PO BID Qty: 60 2RF
Continued
lisinopril 20 MG tablet
40 mg PO DAILY
citalopram 20 MG tablet
20 mg PO DAILY
multivitamin with folic acid [Tab-A-Charo] 1 TABLET tablet
1 tab PO DAILY
alprazolam 0.5 MG tablet
0.5 mg PO HSPRN PRN (Reason: ANXIETY ) Qty: 5 0RF
Patient Comments:
10/21/23: last filled 10/07/23, 20 tabs for 20 days from [facility]
polyethylene glycol 3350 [HealthyLax] 17 gram powder in packet
17 g PO DAILY PRN (Reason: constipation)
gabapentin 300 mg Capsule
300 mg PO TID Qty: 0 0RF
atorvastatin 10 MG tablet
10 mg PO QPM Qty: 30 1RF
hydrocodone-acetaminophen 10-325 mg tablet
1 tab PO Q6H PRN (Reason: severe back pain)
Patient Comments:
10/21/23: last filled 10/15/23, 40 tabs for 10 days from [facility]
ferrous sulfate 325 mg (65 mg iron) tablet
325 mg PO Q48H
Discharge Orders:
Discharge Patient (As Directed); Ordered 10/26/23
Ordered By: Dk Marrero
Discharge Date and Time
Discharge Date/Time: 10/26/23 10:53
== END 2023-10-26 10:53 | disposition home health service (06) | DRG 291 ==
LOC: 3 WEST ACU 19:05
PROVIDERS: Nurse Practitioner Gerontology; Nurse Practitioner Primary Care; Physician Assistant Medical; ADMITTING PHYSICIAN Hospitalist; ATTENDING PHYSICIAN Hospitalist; CONSULT PHYSICIAN Psychiatry & Neurology Neurology; EMERGENCY PHYSICIAN Emergency Medicine; FAMILY PHYSICIAN Family Medicine; OTHER PHYSICIAN Internal Medicine
DX: I11.0 Hypertensive heart disease with heart failure (principal); G92.8 Other toxic encephalopathy; I50.33 Acute on chronic diastolic (congestive) heart failure; J96.01 Acute respiratory failure with hypoxia; I16.1 Hypertensive emergency; K55.1 Chronic vascular disorders of intestine; R64 Cachexia; F13.20 Sedative, hypnotic or anxiolytic dependence, uncomplicated; E87.6 Hypokalemia; M48.061 Spinal stenosis, lumbar region without neurogenic claudication; E78.00 Pure hypercholesterolemia, unspecified; I27.20 Pulmonary hypertension, unspecified; R56.9 Unspecified convulsions; K21.9 Gastro-esophageal reflux disease without esophagitis; Z99.3 Dependence on wheelchair; Z86.79 Personal history of other diseases of the circulatory system; Z85.3 Personal history of malignant neoplasm of breast; Z68.21 Body mass index [BMI] 21.0-21.9, adult
CPT/HCPCS: 93308; 36600; 70450; 70553; 71045; 80048; 80053; 80061; 81003; 82728; 82805; 82962; 83036; 83540; 83550; 83735; 83880; 84100; 84132; 84484; 85025; 85027; 85610; 85730; 87070; 87502; 87811; 92526; 92610; 93005; 93321; 93325; 94640; 95813; 96374; 97163; 97167; 99285; A9575

== ENCOUNTER 2023-10-30 15:38 | Inpatient (IN) | payer OTHER, SELFPAY ==
[2023-10-30] VITALS (8 sets, daily range): BP systolic 108–155; BP diastolic 45–123; BMI 24.1
--- NOTE | 2023-10-30 10:55 | ED.GENMED ---
History of Present Illness
General
Chief Complaint: Change in Mental Status
Exam Limitations: none
Time Seen by Provider: 10/30/23 10:54
Nursing documentation reviewed up to this point in time: agreed with
Travel History
Have you had any contact with someone who has COVID-19?: No
Do you have any symptoms of coronavirus? Fever > 100 degrees, chills, cough, shortness of breath, sore throat, loss of taste or smell, muscle aches, or headache?: No
History of Present Illness
History of Present Illness:
Patient is a 78-year-old female who presents to the ER for evaluation. Patient has a history of tonic-clonic seizures with presumed epilepsy, chronic heart failure hypertension hypokalemia, lumbar compression fractue, dementia anxiety depression
abdominal aortic aneurysm with stent breast cancer with lumpectomy radiation mesenteric ischemia chronic microcytic anemia. Patient was just admitted October 20 and discharged 4 days ago October 25 for seizure. At that time patient did have an episode
of pulmonary edema and was given Lasix. Seizure workup included MRI along with EEG which were both negative. During that admission patient was also hypertensive and had recurrent hypokalemia which is thought to be related to decreased oral intake.
Patient was newly started on risperidone, nifedipine, spironolactone and lacosamide.
Son reports patient is normally confused however is far more confused than normal. Patient has some ecchymosis to her head son is unaware that she fell the patient does state ' bump and wiley wiley.'
Pt is not on blood thinners
Past History
Past History
ED Past Medical History: HTN, Hypercholesterolemia and Other
ED Past Surgical History: Cholecystectomy, Gynecological and Other
Social History
Tobacco: Smoker
Alcohol: None
Drug: None
Personal:
Living: with family
Review of Systems
Review of Systems
Allergies reviewed?: Yes
Unable to obtain full review of systems at this time due to: dementia
Other source history: family
All Other Systems: ROS reviewed and negative except as documented in HPI and ROS
Constitutional: Reports no symptoms; Denies fever
Respiratory: Reports no symptoms; Denies cough
Cardiac: Reports no symptoms
ABD/GI: Reports other (eating and drinking well as per son )
Musculoskeletal: Reports no symptoms
Skin: Reports no symptoms
Neurological: Reports other (increased confusion )
Psychiatric: Reports no symptoms
Phy Exam
General Physical Exam
General Presentation: no apparent distress
General age: appears stated age
General Skin: warm
General Habitus: elderly
General Mental: confused
General Hydration: dry mucous membranes
Cardiovascular Exam
Cardiovascular Exam: regular rate/rhythm, no murmur and normal peripheral pulses
Pulmonary Exam
Pulmonary Exam: lungs clear and no respiratory distress
Neurological Exam
Neurological Exam: alert and oriented x3
Musculoskeletal Exam
Musculoskeletal Exam: full ROM and other (Bilateral lower extremity swelling)
Skin Exam
Skin Exam: normal color and warm/dry
Psychiatric Exam
Psychiatric Exam: normal mood/affect
Course
Orders/Labs/Results
Orders:
Orders
10/30/23 11:09
Electrocardiogram (*1) Stat
Reason for Study: Abdominal Pain
Cardiac Monitoring- Treatment ONCE
EKG- Treatment ONCE
IV Insert/Care/Rem.- Treatment PRN
Straight cath- Treatment ONCE
10/30/23 11:28
Complete Blood Count/With Diff Urgent
Comprehensive Metabolic Panel Urgent
Urinalysis Reflex To Culture Urgent
Date Specimen was Collected: 10/30/23
Time Specimen was Collected: 11:12
Urine Microscopic Reflex Cult Urgent
Urine Culture Urgent
RYDER Source: U
Specimen Description:
Date Specimen was Collected: 10/30/23
Time Specimen was Collected: 11:12
10/30/23 12:11
CT Head W/o Iv Contrast Urgent
Comment:
Reason For Exam: trauma
10/30/23 12:12
0.9% Sodium Chloride 500 ml [Nss] 500 ml IV BOLUS
Abnormal Lab Results
10/30/23
11:28
Hgb 11.0 L g/dL
(12.0-16.0)
Hct 33.4 L %
(37.0-47.0)
MCV 75.7 L fL
(81.0-99.0)
MCH 24.9 L pg
(27.0-31.0)
MCHC 32.9 L g/dL
(33.0-37.0)
RDW 18.9 H %
(11.5-14.5)
Absolute Lymphs (auto) 1.0 L 10^3/uL
(1.2-3.4)
Absolute Monos (auto) 0.8 H 10^3/uL
(0.1-0.6)
Neutrophils % 77.0 H %
(42.2-75.2)
Lymphocytes % 11.4 L %
(20.5-51.1)
Monocytes % 9.6 H %
(1.7-9.3)
Sodium 133 L mmol/L
(135-145)
Potassium 5.5 H mmol/L
(3.5-5.1)
Chloride 97 L mmol/L
(98-107)
Carbon Dioxide 17 L mmol/L
(22-30)
BUN 112 H* mg/dl
(7-17)
Creatinine 3.9 H mg/dL
(0.6-1.0)
AST 46 H U/L
(14-36)
Urine Ketones Trace A
(Negative)
Urine Bilirubin 1+ A
(Negative)
Leukocyte Esterase Rfl 1+ A
(Negative)
Urine Bacteria (Reflex) Few A
(Negative)
10/30/23 11:28
10/30/23 11:28
Vital Signs
Initial and Last Documented VS:
Initial Vital Signs
Temp Pulse Resp BP Pulse Ox
98.8 F 66 16 138/83 95
10/30/23 09:35 10/30/23 09:35 10/30/23 09:35 10/30/23 09:35 10/30/23 09:35
Last Documented Vital Signs
Temp Pulse Resp BP Pulse Ox
98.8 F 80 15 122/52 95
10/30/23 09:35 10/30/23 11:02 10/30/23 11:02 10/30/23 11:02 10/30/23 09:35
MDM/Problems Addressed
Differential Diagnosis Includes:
Not limited to medication reaction, infection, dehydration, intracranial hemorrhage
MDM/Problems Addressed:
Patient is a 78-year-old female who presented with confusion. Patient was just recently hospitalized and discharged 4 days ago. She was hospitalized for seizures and also had hypertension and pulmonary edema and hypokalemia at that time. She was
discharged on 40 medications including lacosamide nifedipine, risperidone and spironolactone.
Son at bedside reports no fevers. Patient is awake alert pleasantly confused more confused than normal as per son. Patient does present awake alert confused but does try to answer questions follows all commands.
Patient arrives afebrile with a normal white count stable hemoglobin 11.0. Patient however with elevated BUN of 112 and creatinine 3.9 which is significantly changed from discharge BUN of 16 on October 25 with a creatinine of 3.9. Potassium today is
mildly elevated at 5.5 no acute EKG changes. Urine does not appear infected. Patient does have a small area of ecchymosis to forehead will CT head the patient is not on blood thinners she describes possible injury this morning. This is sudden
increase in BUN/creatinine may be related to starting diuretic as well as other medications. Case discussed with nephrology Dr. London , will give 500 mL of fluid and then reassess for additional fluid will require admission.
Chronic conditions affecting care:
History of seizure disorder hypertension hyperlipidemia recent CHF recent hypokalemia
*Radiology
Radiology exam reviewed: radiology read reviewed
*Pulse Oximetry
Patient hypoxic: no
*EKG
Heart Rate: 75
Rate: normal
Rhythm: sinus
Ischemia: non-specific ST changes
*Critical Care Note
Total Time (30-74mins, 75-104mins- exclusive of procedures): Not Applicable
Data Reviewed
Review of Other/Old Records Reveals: Labs and Discharge Summary
Source: patient and family
Patient Management
Discussion with other providers: Medical Lab Technician (Nephrology DR London )
ED Attending Note
-
Portions of this chart may have been created with voice recognition software.� Occasional wrong word or��sound alike� substitutions may have occurred due to the inherent limitations of voice recognition software.
Discharge Plan
Departure
Patient Disposition: Admit
Date of Disposition: 10/30/23
Time of Disposition: 13:37
Admit to: Telemetry
Admit to doctor: hospitalist
Presentation/result/management discussed w/ accepting MD/DO: Hospitalist
Patient with high blood pressure during this ER visit?: No
Condition: Fair
Covid-19: Not Applicable
Discharge Problem:
Acute renal failure, change in mental status
Prescriptions:
No Action
lisinopril 20 MG tablet
40 mg PO DAILY
citalopram 20 MG tablet
20 mg PO DAILY
multivitamin with folic acid [Tab-A-Charo] 1 TABLET tablet
1 tab PO DAILY
alprazolam 0.5 MG tablet
0.5 mg PO HSPRN PRN (Reason: ANXIETY ) Qty: 5 0RF
Patient Comments:
10/21/23: last filled 10/07/23, 20 tabs for 20 days from [facility]
polyethylene glycol 3350 [HealthyLax] 17 gram powder in packet
17 g PO DAILY PRN (Reason: constipation)
gabapentin 300 mg Capsule
300 mg PO TID Qty: 0 0RF
atorvastatin 10 MG tablet
10 mg PO QPM Qty: 30 1RF
hydrocodone-acetaminophen 10-325 mg tablet
1 tab PO Q6H PRN (Reason: severe back pain)
Patient Comments:
10/21/23: last filled 10/15/23, 40 tabs for 10 days from [facility]
ferrous sulfate 325 mg (65 mg iron) tablet
325 mg PO Q48H
risperidone 0.25 mg Tablet
0.25 mg PO BID Qty: 60 0RF
nifedipine 30 mg Tablet Extended Release
30 mg PO BID Qty: 60 0RF
spironolactone 25 mg Tablet
12.5 mg PO DAILY Qty: 30 0RF
lacosamide 100 mg Tablet
150 mg PO BID Qty: 60 2RF
Referrals:
Irish Reeder MD [Family Provider] -
Interventions
Interventions:
*Risk Screen - Suicide Last Done: 10/30/23 11:10
*General Assessment Last Done: 10/30/23 11:10
*Neglect/Abuse Screening Last Done: 10/30/23 11:10
*ED COVID-19 Vaccine History Last Done: 10/30/23 09:35
ED- Pulmonary Assessment Last Done: 10/30/23 11:10
ED- Neurological Assessment Last Done: 10/30/23 11:10
[2023-10-30 11:35] LABS: % Basophils 0.7 % (0-2); % Eosinophils 0.8 % (0-6); % Immature Granulocytes 0.5 % (0-0.5); % Lymphocytes 11.4 % (20.5-51.1); % Monocytes 9.6 % (1.7-9.3); Absolute Basophils 0.1 10^3/uL (0-0.2); Absolute Eosinophils 0.1 10^3/uL (0-0.7); Absolute Monocytes 0.8 10^3/uL (0.1-0.6); Absolute Neutrophils 6.4 10^3/uL (1.4-6.5); Hematocrit 33.4 % (37.0-47.0); Mean Corp Hgb Conc. 32.9 g/dL (33.0-37.0); Mean Corpuscular Hgb 24.9 pg (27.0-31.0); Mean Corpuscular Volume 75.7 fL (81.0-99.0); Nucleated Red Blood Cells % 0 %; Platelet Count 303 10^3/uL (130-400); Red Blood Cell Count 4.41 10^6/uL (4.20-5.40); Red Cell Dist. Width 18.9 % (11.5-14.5); White Blood Cell Count 8.3 10^3/uL (4.8-10.8)
[2023-10-30 11:57] LABS: ALT (SGPT) 24 U/L (0-35); AST (SGOT) 46 U/L (14-36); Albumin 4.3 g/dl (3.5-5.0); Alkaline Phosphatase 78 U/L (38-126); Blood Urea Nitrogen 112 mg/dl (7-17); Calcium 9.4 mg/dl (8.4-10.2); Carbon Dioxide 17 mmol/L (22-30); Chloride 97 mmol/L (98-107); Glucose 75 mg/dl (70-99); Potassium 5.5 mmol/L (3.5-5.1); Sodium 133 mmol/L (135-145); Total Bilirubin 0.8 mg/dl (0.2-1.3); Total Protein 7.2 g/dl (6.3-8.2); eGFR 11.12
[2023-10-30 12:12] LABS: Urine Albumin Trace (Neg - Trace); Urine Bilirubin 1+ (Negative); Urine Character Clear (Clear); Urine Color Yellow; Urine Glucose Negative (Negative); Urine Ketone Trace (Negative); Urine Leukocyte 1+ (Negative); Urine Nitrite Negative (Negative); Urine Occult Blood Negative (Negative); Urine Specific Gravity 1.025 (<1.030); Urine Urobilinogen Negative (Neg - 1+)
[2023-10-30 12:27] LABS: Urine Bacteria Few (Negative); Urine Squamous Cell 16-20 /LPF (Few)
[2023-10-30 12:28] LABS: Urine Red Blood Cell 0-2 /HPF (0-2)
[2023-10-30] MEDS: NSS 500 IV (12:32)
--- NOTE | 2023-10-30 13:39 | PHANOTE ---
10/30/2023, med rec tech, used pharmacy fill data, [facility] records from 10/17/2023, and discharge paperwork from 10/26/2023 to compile a list of pt.'s meds; was not able to speak to pt. and attempted to call the spouse three times unsuccessfully; called
pt.'s son and he did not know pt.'s meds.; left med. list unconfirmed.
--- NOTE | 2023-10-30 16:45 | PTCARENOTE ---
pt admitted from ED. Awake and alert but oriented only to self. granddaughters at bedside able to assist with most admission questions, LCTA B/L. SR on monitor. +BS x4 pt unable to report last BM, family reports incont. is a newer issue and pt has
been weaker. +3 B/L LE edema. weak PP B/L.
--- NOTE | 2023-10-30 17:33 | HPS.HSE ---
Addendum entered and electronically signed by Mauricio Spears MD 10/30/23 21:32:
Attending Addendum-
I performed a history and physical exam of the patient and discussed his management with the resident. I reviewed the resident's note and agree with the documented findings and plan of care. Patient presents from sons home with worsening confusion
and increased falls. Patient is a poor historian due to CIMS/dementia. H/O from son. Exam: gen NAD pleasantly demented, Heart- RRR, Lungs- decreased at bases, Abd- mildly distended soft NT, bladder-non palp Ext- no edema b/l
Plan:
# TME/Acute Delirium- from AUGUSTINE- c/s nephro, check renal and bladder us, check fena, start IVF renal diet repeat labs in am
# Hyponatremia- hypovolemic start IVF repeat labs in am
# Hyperkalemia- from AUGUSTINE hold lisinopril and spirinolactone
# Nicotine Dependence- start juany patch
# Metabolic Acidosis from renal failure cont IVF
# Seizure- cont meds
# Chronic benzo use- cont benzos while in house to avoid withdrawal, will benefit from being tapered as OP
# HTN- stable monitor hold spironolactone and lisinopril
# Dementia with Behavioral Disturbance- cont risperdone
# Chronic Ambulatory Dysfunction/L5 spinal fx- WC bound PT OT
Dispo- will likely benefit from SNF on DC
Time spent coordinating care, review of plan of care with resident, review of records, med rec, consults, notes, labs, rads, d/w nursing - 85 mins
Original Note:
Family Physician
<Shabana Freitas MD, Resident - Last Filed: 10/30/23 21:05>
-
Family Physician: Irish Reeder
Chief Complaint
<Shabana Freitas MD, Resident - Last Filed: 10/30/23 21:05>
-
Confusion.
History of Present Illness
This is an 78-year-old female with PMH of dementia who presents to the ED with her son due to confusion. Patient was admitted October 20 for seizure, discharged October 25. At that time, she had CHF and initiated on Lasix. Seizure workup done at that
time including MRI and EEG all negative. Today she presented to the ED with more confusion. Contacted Son over the phone to obtain more history, he reports patient's baseline was mild confusion with rapid speech. But since discharge from hospital
and initiation of new medications, patient has been more confused and falling from her wheel chair. She recently fell from the wheelchair this morning and hit her head on the fridge. Per son, patient denies chest pain, shortness of breath.
Medical History
<Shabana Freitas MD, Resident - Last Filed: 10/30/23 21:05>
Past Medical History
Past Medical History: Reports Other ((prior seizure 1 and half year ago, chronic lacunar infarcts, hypertension, hyperlipidemia, GERD, abdominal aortic aneurysm status post repair, chronic peripheral edema, L5 spinal fracture status post
wheelchair-bound, euthyroid sick syndrome, normocytic anemia, iron deficiency anemia, nicotine use)
Past Surgical History: Reports Other (Cholecystectomy, Lumpectomy, AAA repair)
Social History
Tobacco: Smoker (A pack a day)
Alcohol: None
Drug: None
Personal:
Living: With Family
Employment: Retired
Family History
Family History: Not pertinent
Allergies / Home Medications
Allergies reflects when Allergies were last updated in [facility].
Home Medications with original date entered in [facility]
Allergy/Medication List:
Allergies
Allergy/AdvReac Type Severity Reaction Status Date / Time
penicillin G Allergy Tongue Verified 10/30/23 09:38
Swelling
Penicillins Allergy Tongue Verified 10/30/23 09:38
Swelling
If Other, explain: medication reconciliation not performed.
<Mauricio Spears MD - Last Filed: 10/30/23 21:19>
Allergies / Home Medications
If medication reconciliation has not been performed, why?: Dementia
If Other, explain: medication reconciliation completed
Review of Systems
<Shabana Freitas MD, Resident - Last Filed: 10/30/23 21:05>
-
Unable to obtain full review of systems at this time due to: Dementia
History Source: Family
A 12 point ROS was completed and negative except as noted: Yes
Constitutional: Reports See HPI
EENT: Reports No Symptoms
Respiratory: Reports Other (wheezes)
Cardiac: Reports No Symptoms
Abdomen/GI: Reports No Symptoms
: Reports No Symptoms
Skin: Reports Other (Venous stasis dermatitis)
Psych: Reports Dementia
Physical Exam
<Shabana Freitas MD, Resident - Last Filed: 10/30/23 21:05>
Vital Signs
Vital Signs
Temp Pulse Resp BP Pulse Ox
98.5 F 95 18 153/57 94
10/30/23 16:58 10/30/23 16:58 10/30/23 16:58 10/30/23 16:58 10/30/23 16:58
Physical Exam
General: Well Developed and Well Nourished
HEENT: NormoCephalic and Other (ecchymosis on forehead)
Respiratory: Wheezes and Non Labored Respirations; No Rales or Rhonchi
Cardiac: S1/S2 and Regular Rhythm
GI: Soft, Non Tender, Non Distended and Normal Bowel Sounds
Musculoskeletal: No Clubbing, No Cyanosis and Other (Venous stasis dermatitis B/L)
Skin: Warm, Dry and Other (Venous stasis dermatitis B/L)
Neuro: Awake and Alert; No Oriented
Psych: Calm
Laboratory Results
<Shabana Freitas MD, Resident - Last Filed: 10/30/23 21:05>
-
10/30/23 11:28
10/30/23 11:28
Laboratory Results
Total Bilirubin 0.8 mg/dl (0.2-1.3) 10/30/23 11:28
AST 46 U/L (14-36) H 10/30/23 11:28
ALT 24 U/L (0-35) 10/30/23 11:28
Alkaline Phosphatase 78 U/L (38-126) 10/30/23 11:28
Data Reviewed
<Shabana Freitas MD, Resident - Last Filed: 10/30/23 21:05>
-
CT Scan: Report Reviewed by me and Discussed with Physician
Lab Data: Labs Reviewed by me and Discussed with Physician
Impression/Plan
<Shabana Freitas MD, Resident - Last Filed: 10/30/23 21:05>
-
IMPRESSION:
Acute Kidney Injury
Acute Delirium Secondary to Uremia versus Medication
Hyponatremia
Hyperkalemia
Acidosis
Plan
#Acute Kidney Injury
#Hyponatremia
#Hyperkalemia
#Acidosis
-Check Urine Studies
-Kidney Ultrasound +Bladder
-IV fluids administered on presentation
-Consult Nephrology
-check PVR
-follow BMP
Hypertension
-Continue Home meds.
Anxiety/Depression
-Continue Home meds
Code Status: Full code'
DVT Prophylaxis: Heparin
[2023-10-30] MEDS: PROCARDIA XL (EXTENDED RELEASE) 30 MG PO (21:29)
[2023-10-30] MEDS: VIMPAT 150 MG PO (21:29)
[2023-10-30] MEDS: LIPITOR 10 MG PO (21:29)
[2023-10-30] MEDS: TRANDATE 50 MG PO (21:30)
[2023-10-30] MEDS: RISPERDAL 0.25 MG PO (21:30)
[2023-10-30] MEDS: NEURONTIN 100 MG PO (21:30)
[2023-10-31] MEDS: HEPARIN 5000 UNITS SC ×4 (00:53→23:57)
[2023-10-31 03:35] VITALS: BP 126/55
[2023-10-31 05:54] VITALS: BMI 23.3
[2023-10-31 06:45] LABS: % Basophils 0.5 % (0-2); % Eosinophils 0.9 % (0-6); % Immature Granulocytes 0.5 % (0-0.5); % Lymphocytes 14.2 % (20.5-51.1); % Neutrophils 71.9 % (42.2-75.2); Absolute Eosinophils 0.1 10^3/uL (0-0.7); Absolute Lymphocytes 0.8 10^3/uL (1.2-3.4); Absolute Monocytes 0.7 10^3/uL (0.1-0.6); Hematocrit 28.2 % (37.0-47.0); Hemoglobin 9.5 g/dL (12.0-16.0); Mean Corp Hgb Conc. 33.7 g/dL (33.0-37.0); Mean Corpuscular Hgb 25.3 pg (27.0-31.0); Mean Platelet Volume 9.9 fL (7.4-10.4); Nucleated Red Blood Cells % 0 %; Platelet Count 246 10^3/uL (130-400); Red Blood Cell Count 3.76 10^6/uL (4.20-5.40); Red Cell Dist. Width 18.5 % (11.5-14.5); White Blood Cell Count 5.5 10^3/uL (4.8-10.8)
[2023-10-31 06:59] LABS: Blood Urea Nitrogen 109 mg/dl (7-17); Calcium 8.7 mg/dl (8.4-10.2); Carbon Dioxide 20 mmol/L (22-30); Chloride 103 mmol/L (98-107); Estimated Creatinine Clearance 17 ml/min; Glucose 80 mg/dl (70-99); Potassium 4.6 mmol/L (3.5-5.1); Sodium 132 mmol/L (135-145); eGFR 23.38
[2023-10-31 07:15] VITALS: BP 123/51
[2023-10-31] MEDS: NICODERM TRANSDERMAL 21 MG TRANSDERM (09:09)
[2023-10-31] MEDS: VIMPAT 150 MG PO ×2 (09:09→20:59)
[2023-10-31] MEDS: NEURONTIN 100 MG PO ×3 (09:11→21:01)
[2023-10-31] MEDS: PROCARDIA XL (EXTENDED RELEASE) 30 MG PO ×2 (09:11→20:59)
[2023-10-31] MEDS: CELEXA 20 MG PO (09:12)
[2023-10-31] MEDS: TRANDATE 50 MG PO ×2 (09:12→20:58)
[2023-10-31] MEDS: RISPERDAL 0.25 MG PO ×2 (09:13→21:01)
--- NOTE | 2023-10-31 09:22 | VNURNOTE ---
Patient is current with [facility] since 10/26 w/SN, will monitor progress and plan at discharge.
--- NOTE | 2023-10-31 09:28 | W.PN.HOSP.TC ---
Addendum entered and electronically signed by Mauricio Spears MD 10/31/23 23:28:
Attending Addendum-
I saw and evaluated the patient. I reviewed the resident�s note and agree with findings and plan as documented in the resident�s note. Patient appears mildly agitated, seen with son present. no complaints. Full 12 point ROS reviewed and negative
except as documented. H/O from son. Exam: gen NAD pleasantly demented, Heart- RRR, Lungs- decreased at bases, Abd- mildly distended soft NT, bladder-non palp� Ext- no edema b/l
Plan:
# TME/Acute Delirium- from AUGUSTINE- resolving, appreciate nephro input, renal us-reviewed WNL, bladder us-p, FeNA-prerenal, cont IVF renal diet repeat labs in am
# Hypovolemic Hyponatremia-cont IVF repeat labs in am
# Hyperkalemia- from AUGUSTINE hold lisinopril and spirinolactone-resolved
# Nicotine Dependence- cont juany patch
# Metabolic Acidosis- improving, from renal failure- cont IVF with HCO3 per nephro
# Seizure- cont meds
# Chronic benzo use- cont benzos while in house to avoid withdrawal, will benefit from being tapered as OP
# HTN- stable monitor hold spironolactone and lisinopril
# Dementia with Behavioral Disturbance- cont risperdone
# Chronic Ambulatory Dysfunction/L5 spinal fx- WC bound PT OT
Dispo- will likely benefit from SNF on DC
Time spent coordinating care, review of plan of care with resident, review of records, med rec, consults, notes, labs, rads, d/w nursing - 57 mins
Original Note:
Today's Communication/Plan
-
Monitor Urine Output
Awaiting Renal scan
Bicarb IV fluids
Restart Alprazolam 0.5mg PRN
Assessment / Plan
Assessment / Plan
IMPRESSION:
Acute Delirium from Acute Kidney Injury
Hyponatremia
Metabolic Acidosis from Renal Failure
Conditions prior to Admission
History of Seizure
Depression
Anxiety
Hypertension
Dementia with Behavioral Disturbance
Chronic Ambulatory Dysfunction/L5 Spinal Fracture.
Plan
#Acute Delirium from Acute Kidney Injury
#Hyponatremia
#Metabolic Acidosis from Renal Failure
-Bicarb IV fluids today
-Euvolemic on examination
-Bladder Scan
-Renal Ultrasound pending
-FeNA 0.8% suggesting PreRenal
-Repeat Labs in AM
#HTN
Stable. Monitor.
Continue to Hold Lisinopril and Spirinolactone
#Hx of Seizure
-Continue Meds
#Chronic Ambulatory Dysfunction/L5 Spinal Fracture
-Wheelchair bound.
-PT/OT evaluation
#Dementia with Behavioral Disturbance
-Continue Risperidone.
#Nicotine Dependence
-Continue Nicotine Patch
#Benzo Dependence
-Restart Alprazolam PRN
Code Status: Full code'
DVT Prophylaxis: Heparin
Anticipated Discharge: 24 - 48 hours
Subjective/Interval History
-
Patient reports no new complaint today. Patient oriented to person and place.
Objective Data
-
Labs:
Laboratory Results
10/31/23
06:11
WBC 5.5
Hgb 9.5 L
Hct 28.2 L
Plt Count 246
Sodium 132 L
Potassium 4.6
Chloride 103
Carbon Dioxide 20 L
BUN 109 H*
Creatinine 2.1 H
Glucose 80
Calcium 8.7
Vital Signs:
Vital Signs
Temp Pulse Resp BP Pulse Ox
97.9 F 78 17 123/51 96
10/31/23 07:15 10/31/23 07:15 10/31/23 07:15 10/31/23 07:15 10/31/23 07:15
I&O
10/30/23 10/31/23 11/01/23
06:59 06:59 06:59
Intake Total 480 / 480
Balance 480 / 480
Review of Systems
-
History Source: Patient
All other systems: Reviewed and negative (except as documented )
Constitutional: Reports No Symptoms
Respiratory: Reports Wheezing
Cardiac: Reports No Symptoms
Abdomen/GI: Reports No Symptoms
Physical Exam
-
General: Well Developed, Well Nourished and No Apparent Distress
HEENT: Normocephalic
Respiratory: Wheezes; Negative Rales or Rhonchi
Cardiac: Regular Rhythm and S1/S2
GI: Soft, Nontender and Nondistended
Musculoskeletal: No Clubbing, No Cyanosis and No Edema
Neuro: Awake, Alert and Oriented (oriented to person and place)
--- NOTE | 2023-10-31 09:53 | W.CON.NEPH ---
Consultation
-
Date/Time Consultation Requested: 10/30/23 1743
Date/Time Consultation Performed: 10/31/23 0930
Requesting Provider: Mauricio Spears MD
Performing Provider: Lynn Vila
Reason for Consultation: AUGUSTINE
Medical History
-
Chief Complaint: AMS
History of Present Illness:
78-year-old female with PMH of dementia on risperidone, anxiety on xanax, citalopram, recent admit for SZ required no new meds, also treated for CHF and HTN with treated with lasix in the hospital, lost close to 13kg wt and at d/c was sent with
ALdactone and continuation of ACEI and BB for HTN on 10/25. SHe now returned with AMS brought by her son. Pt reports falling at home with dizziness. On admit her cr was 3.9, BUN 112, k 5.5, bicarb 17. with baseline cr 0.5. She reports eating and
drinking well at home. She denies chest pain, shortness of breath and offers no other complaints. NO dysuria.He wt were slightly higher than discharge. �
Past Medical History
prior seizure 1 and half year ago, chronic lacunar infarcts, hypertension, hyperlipidemia, GERD, abdominal aortic aneurysm status post repair, chronic peripheral edema, L5 spinal fracture status post wheelchair-bound, normocytic anemia, iron
deficiency anemia, nicotine use
Social History
Tobacco: Smoker (1PPD)
Alcohol: None
Living: With Family
Employment: Retired
Family History
Family History: Not Pertinent
Allergies / Home Medications
Allergy/AdvReac Type Severity Reaction Status Date / Time
penicillin G Allergy Tongue Verified 10/30/23 09:38
Swelling
Penicillins Allergy Tongue Verified 10/30/23 09:38
Swelling
Medication Instructions Recorded Confirmed Type
citalopram 20 mg tablet 20 mg PO DAILY Mental 03/09/21 10/21/23 History
Health/Anxiety
lisinopril 20 mg tablet 40 mg PO DAILY Blood pressure 03/09/21 10/21/23 History
multivitamin with folic acid 400 1 tab PO DAILY Supplement 03/09/21 10/21/23 History
mcg tablet (Tab-A-Charo)
alprazolam 0.5 mg tablet 0.5 mg PO HSPRN PRN ANXIETY #5 04/24/23 10/21/23 Rx
tabs
polyethylene glycol 3350 17 gram 17 g PO DAILY PRN constipation 05/11/23 10/21/23 History
oral powder packet ([employer]yLax)
atorvastatin 10 mg tablet 10 mg PO QPM High cholesterol #30 05/24/23 10/21/23 Rx
tabs
gabapentin 300 mg capsule 300 mg PO TID neuropathy #0 caps 05/24/23 10/21/23 Rx
ferrous sulfate 325 mg (65 mg 325 mg PO Q48H Supplement 10/21/23 10/21/23 History
iron) tablet
hydrocodone 10 mg-acetaminophen 1 tab PO Q6HPRN PRN severe back 10/21/23 10/21/23 History
325 mg tablet pain
lacosamide 100 mg tablet 150 mg PO BID Seizures #60 tabs 10/25/23 Rx
nifedipine 30 mg tablet,extended 30 mg PO BID htn #60 tabs 10/25/23 Rx
release
risperidone 0.25 mg tablet 0.25 mg PO BID Mental 10/25/23 Rx
Health/Anxiety #60 tabs
spironolactone 25 mg tablet 12.5 mg PO DAILY htn #30 tabs 10/25/23 Rx
labetalol 100 mg tablet 50 mg PO BID 10/30/23 History
potassium chloride 20 mEq oral 20 meq PO DAILY 10/30/23 History
packet
Review of Systems
-
All complete 12 point ROS have been inquired and found negative other than state din HPI
Physical Exam
Vital Signs
Vital Signs
Temp Pulse Resp BP Pulse Ox
97.9 F 78 17 123/51 96
10/31/23 07:15 10/31/23 07:15 10/31/23 07:15 10/31/23 07:15 10/31/23 07:15
Lab Results
WBC 5.5 10^3/uL (4.8-10.8) 10/31/23 06:11
RBC 3.76 10^6/uL (4.20-5.40) L 10/31/23 06:11
Hgb 9.5 g/dL (12.0-16.0) L 10/31/23 06:11
Hct 28.2 % (37.0-47.0) L 10/31/23 06:11
Plt Count 246 10^3/uL (130-400) 10/31/23 06:11
Sodium 132 mmol/L (135-145) L 10/31/23 06:11
Potassium 4.6 mmol/L (3.5-5.1) 10/31/23 06:11
Chloride 103 mmol/L (98-107) 10/31/23 06:11
Carbon Dioxide 20 mmol/L (22-30) L 10/31/23 06:11
BUN 109 mg/dl (7-17) H* 10/31/23 06:11
Creatinine 2.1 mg/dL (0.6-1.0) H 10/31/23 06:11
eGFR 23.38 10/31/23 06:11
Glucose 80 mg/dl (70-99) 10/31/23 06:11
Calcium 8.7 mg/dl (8.4-10.2) 10/31/23 06:11
Albumin 4.3 g/dl (3.5-5.0) 10/30/23 11:28
10/22/23:
CONCLUSIONS
�Limited 2D echo study.
�Technically difficult study
�Normal left ventricular size and systolic function.� LV ejection fraction is
�50-55% by visual assessment. No significant wall motion abnormality. Mild
�concentric left ventricular hypertrophy.
�Mild tricuspid regurgitation.� Pulmonary artery pressure 40 to 45 mmHg
�No pericardial effusion
�A prior full study echo from April 2023was unremarkable
EKG:
NORMAL SINUS RHYTHM
MODERATE VOLTAGE CRITERIA FOR LVH, MAY BE NORMAL VARIANT ( R in aVL , Jori
product )
NONSPECIFIC T WAVE ABNORMALITY
PROLONGED QT
ABNORMAL ECG
WHEN COMPARED WITH ECG OF 22-OCT-2023 03:20,
NONSPECIFIC T WAVE ABNORMALITY, WORSE IN ANTEROLATERAL LEADS
Confirmed by Lowell PARADA ERIC ([id number]) on 10/30/2023 5:25:53 PM
Physical Exam
General: Awake, Alert, Oriented, No Distress and Nontoxic
HEENT: EOMI and Anicteric
Respiratory: Clear, Normal Excursion and Nonlabored Respirations
Cardiac: S1/S2 and Regular Rate/Rhythm
Abdomen: Soft, Nontender and Nondistended
Musculoskeletal: No Cyanosis and Edema (2+chronic with skin changes)
Skin: Other (chr LE changes )
Neuro: Nonfocal/Grossly Intact
Psych: Mood/afflect pleasant and Appropriate
Assessment/Plan
-
IMP:
TME/Acute Delirium
AUGUSTINE
Mild Hyperkalemia
AGAMA
Azotemia
Hyponatremia
Nicotine Dependence
Seizure
Chronic benzo use
HTN-
Dementia with Behavioral Disturbance
Chronic Ambulatory Dysfunction/L5 spinal fx
Plan:
Recent d/c on 10/25 after treating SZ and CHF, HTN now returns with AMS and AUGUSTINE
AUGUSTINE- UA bland, check Fena and follow bladder scan, await renal US
suspect AUGUSTINE from hypovolemia and med effect, recent addition of Aldactone with ACEI
cr and hyperkalemia is improving
would give gentle bicarb IVF today , check ortho vitals since she c/o dizziness
she seem euvolemic on exam though has chr LE edema
monitor h/h with IVF
BP stable on BB only, holding Aldactone and ACEI
labs in am
Data Reviewed
-
Radiology: Report Reviewed by me
Labs: Labs Reviewed by me and Discussed with Patient
Old Records: Reviewed
[2023-10-31 10:10] VITALS: BP 118/59
[2023-10-31 13:11] LABS: Urine Sodium 34 mmol/L (30-90)
[2023-10-31] MEDS: SODIUM BICARBONATE 1075 MEQ IV (13:26)
[2023-10-31 14:02] VITALS: BMI 23.3
[2023-10-31 15:04] VITALS: BP 136/67
[2023-10-31] MEDS: LIPITOR 10 MG PO (17:01)
[2023-10-31 19:20] VITALS: BP 135/58
[2023-10-31 22:51] VITALS: BP 140/56
[2023-10-31] MEDS: XANAX 0.5 MG PO (23:57)
[2023-11-01 03:15] VITALS: BP 107/79
[2023-11-01 06:00] VITALS: BMI 23.4
[2023-11-01 06:49] LABS: % Basophils 0.8 % (0-2); % Eosinophils 1.7 % (0-6); % Immature Granulocytes 0.6 % (0-0.5); % Monocytes 14.3 % (1.7-9.3); % Neutrophils 59.6 % (42.2-75.2); Absolute Eosinophils 0.1 10^3/uL (0-0.7); Absolute Lymphocytes 0.8 10^3/uL (1.2-3.4); Absolute Monocytes 0.5 10^3/uL (0.1-0.6); Absolute Neutrophils 2.1 10^3/uL (1.4-6.5); Hematocrit 31.9 % (37.0-47.0); Hemoglobin 10.3 g/dL (12.0-16.0); Mean Corp Hgb Conc. 32.3 g/dL (33.0-37.0); Mean Corpuscular Hgb 24.8 pg (27.0-31.0); Mean Corpuscular Volume 76.9 fL (81.0-99.0); Mean Platelet Volume 10.6 fL (7.4-10.4); Nucleated Red Blood Cells % 0 %; Platelet Count 258 10^3/uL (130-400); Red Blood Cell Count 4.15 10^6/uL (4.20-5.40); Red Cell Dist. Width 18.4 % (11.5-14.5); White Blood Cell Count 3.6 10^3/uL (4.8-10.8)
[2023-11-01 07:19] VITALS: BP 128/61
[2023-11-01 07:37] LABS: Blood Urea Nitrogen 80 mg/dl (7-17); Calcium 8.5 mg/dl (8.4-10.2); Carbon Dioxide 25 mmol/L (22-30); Chloride 102 mmol/L (98-107); Estimated Creatinine Clearance 39 ml/min; Glucose 89 mg/dl (70-99); Potassium 3.8 mmol/L (3.5-5.1); Sodium 134 mmol/L (135-145); eGFR > 60.00
[2023-11-01] MEDS: NICODERM TRANSDERMAL 21 MG TRANSDERM (08:44)
[2023-11-01] MEDS: VIMPAT 150 MG PO ×2 (08:45→20:10)
[2023-11-01] MEDS: PROCARDIA XL (EXTENDED RELEASE) 30 MG PO ×2 (08:45→20:11)
[2023-11-01] MEDS: RISPERDAL 0.25 MG PO ×2 (08:46→20:08)
[2023-11-01] MEDS: HEPARIN 5000 UNITS SC ×2 (08:46→16:08)
[2023-11-01] MEDS: NEURONTIN 100 MG PO ×3 (08:46→20:11)
[2023-11-01] MEDS: CELEXA 20 MG PO (08:46)
[2023-11-01] MEDS: TRANDATE 50 MG PO ×2 (08:48→20:08)
--- NOTE | 2023-11-01 10:55 | W.PN.HOSP.TC ---
Today's Communication/Plan
-
s/p bicarb
trend bmp
await nephro recs
PT/OT
Assessment / Plan
Assessment / Plan
IMPRESSION:
Acute Delirium from Acute Kidney Injury
Hyponatremia
Metabolic Acidosis from Renal Failure
Conditions prior to Admission
History of Seizure
Depression
Anxiety
Hypertension
Dementia with Behavioral Disturbance
Chronic Ambulatory Dysfunction/L5 Spinal Fracture.
Plan
#Acute Delirium from Acute Kidney Injury
#Hyponatremia
#Metabolic Acidosis from Renal Failure
-s/p Bicarb infusion
-Euvolemic on examination
-Bladder Scan
-Renal Ultrasound Simple right renal cysts. Nonvisualization of the left kidney. Limited exam.
-FeNA 0.8% suggesting PreRenal
-Cr stabilized and wnl. Acidosis resolved. Trend bmp.
#HTN Primary
Stable. Monitor. On Labetalol 50mg BID and Procardia 30mg BID
Continue to Hold Lisinopril. and Spironolactone seems to have been added recently.
BP controlled 128/61
#Hx of Seizure
-Continue Vimpat.Recent seizures.
#Chronic Ambulatory Dysfunction/L5 Spinal Fracture
-PT/OT ordered
#Dementia with Behavioral Disturbance
-Continue Risperidone.
#Nicotine Dependence
-Continue Nicotine Patch
#Benzo Dependence
-Restart Alprazolam PRN
Code Status: Full code'
DVT Prophylaxis: Heparin
d/w with son at bedside
Anticipated Discharge: 24 - 48 hours
Subjective/Interval History
-
Date of Service: November 01, 2023
Feeling better
Objective Data
-
Labs:
Laboratory Results
11/01/23
05:56
WBC 3.6 L
Hgb 10.3 L
Hct 31.9 L
Plt Count 258
Sodium 134 L
Potassium 3.8
Chloride 102
Carbon Dioxide 25
BUN 80 H
Creatinine 0.9
Glucose 89
Calcium 8.5
Vital Signs:
Vital Signs
Temp Pulse Resp BP Pulse Ox
97.7 F 71 16 128/61 96
11/01/23 07:19 11/01/23 07:19 11/01/23 07:19 11/01/23 07:19 11/01/23 07:19
I&O
10/31/23 11/01/23 11/02/23
06:59 06:59 06:59
Intake Total 480 / 480 600 / 600
Balance 480 / 480 600 / 600
Physical Exam
-
General: Well Developed, Well Nourished and No Apparent Distress
HEENT: Normocephalic, Atraumatic and Moist Mucous Membranes
Respiratory: Clear to Auscultation; Negative Rales or Rhonchi
Cardiac: Regular Rhythm and S1/S2
GI: Soft, Nontender, Nondistended and Normal Bowel Sounds
Musculoskeletal: No Clubbing, No Cyanosis and No Edema
Neuro: Awake, Alert, Oriented (oriented to person and place) and No Motor Deficits
Psych: Calm
Data Reviewed
-
Total Time Spent with Patient (in minutes): 55
[2023-11-01 11:00] VITALS: BP 124/57
--- NOTE | 2023-11-01 11:55 | CM ---
Placed a call to patient's spouse to obtain information for assessment as patient was sleeping. Patient's spouse answered and stated that he could talk. He stated that patient was recently discharged and was sent home with HAMZAH GARZA. He also stated that
she has 8 hours of aids who come in to assist her with her ADLs and personal care. She is not ambulating right now and only using a w/c. Patient lives in a one story home with 2 steps to enter.
She is dependent with all her ADLs, personal care, dressing, bathing and toileting.
Her spouse takes care of all the cooking, cleaning, laundry, and other retail seasonal specialist.
Patient has been to [facility] in the past.
She does not drive and her son has to assist her spouse with transferring her in and out of the car.
Patient has a hospital bed and a walker that she does not use.
Patient's spouse reported that he is hopeful that patient can transfer to a SNF prior to coming home as she has not been at her baseline and she could use the rehab.
Transfer to SNF will be contingent on insurance approval.
Plan: Case management will continue to follow and assist with discharge planning. Patient's son is hopeful for SNF upon discharge.
--- NOTE | 2023-11-01 13:28 | W.PN.NEPH.PH ---
Today's Communication / Plan
-
observe off IVF
Assessment/Plan
-
IMP:
TME/Acute Delirium
AUGUSTINE
Mild Hyperkalemia
AGAMA
Azotemia
Hyponatremia
Nicotine Dependence
Seizure
Chronic benzo use
HTN-
Dementia with Behavioral Disturbance
Chronic Ambulatory Dysfunction/L5 spinal fx
Plan:
Recent d/c on 10/25 after treating SZ and CHF, HTN returns with AMS and AUGUSTINE
UA bland, Fena low 0.8, limited US could not see left kidney
suspect AUGUSTINE from hypovolemia and med effect, recent addition of Aldactone with ACEI
cr improved still persistent azotemia
monitor with out IVF
she seem euvolemic on exam though has chr LE edema
monitor daily wts
BP stable on BB only, holding Aldactone and ACEI
labs in am
d/w at bedside
-
-
Date of Service: November 01, 2023
CC / HPI / ROS
-
Chief Complaint:
AUGUSTINE
History of Present Illness:
cr improved to 1, BUN in 80s
Bp stable, hb better 10.3
Review of Systems:
no cp or sob
non ambulatory
Labs
-
Labs:
WBC 3.6 10^3/uL (4.8-10.8) L 11/01/23 05:56
RBC 4.15 10^6/uL (4.20-5.40) L 11/01/23 05:56
Hgb 10.3 g/dL (12.0-16.0) L 11/01/23 05:56
Hct 31.9 % (37.0-47.0) L 11/01/23 05:56
Plt Count 258 10^3/uL (130-400) 11/01/23 05:56
Sodium 134 mmol/L (135-145) L 11/01/23 05:56
Potassium 3.8 mmol/L (3.5-5.1) 11/01/23 05:56
Chloride 102 mmol/L (98-107) 11/01/23 05:56
Carbon Dioxide 25 mmol/L (22-30) 11/01/23 05:56
BUN 80 mg/dl (7-17) H 11/01/23 05:56
Creatinine 0.9 mg/dL (0.6-1.0) 11/01/23 05:56
eGFR > 60.00 11/01/23 05:56
Glucose 89 mg/dl (70-99) 11/01/23 05:56
Calcium 8.5 mg/dl (8.4-10.2) 11/01/23 05:56
Albumin 4.3 g/dl (3.5-5.0) 10/30/23 11:28
Physical Exam
-
Vital Signs:
Vital Signs
Temp Pulse Resp BP Pulse Ox
97.9 F 65 18 124/57 96
11/01/23 11:00 11/01/23 11:00 11/01/23 11:00 11/01/23 11:00 11/01/23 11:00
Cardiovascular:: Regular rate and rhythm
Respiratory:: Bilateral: Rales (at bases with shallow inspiration)
Lung Excursion:: Normal
Abdomen:: Nontender and Soft
Extremity Edema:: +1: Bilateral: (chronic)
Chang Catheter: No
[2023-11-01 15:00] VITALS: BP 127/63
[2023-11-01] MEDS: LIPITOR 10 MG PO (17:15)
[2023-11-01 19:58] VITALS: BP 141/72
[2023-11-01 23:30] VITALS: BP 128/60
[2023-11-02] VITALS (7 sets, daily range): BP systolic 131–167; BP diastolic 61–83; PULSE 68–69; O2SAT 96
[2023-11-02] MEDS: HEPARIN 5000 UNITS SC ×4 (00:55→23:02)
[2023-11-02] MEDS: NICODERM TRANSDERMAL 21 MG TRANSDERM (08:29)
[2023-11-02] MEDS: CELEXA 20 MG PO (08:30)
[2023-11-02] MEDS: TRANDATE 50 MG PO ×2 (08:30→21:14)
[2023-11-02] MEDS: PROCARDIA XL (EXTENDED RELEASE) 30 MG PO ×2 (08:30→21:13)
[2023-11-02] MEDS: RISPERDAL 0.25 MG PO ×2 (08:31→21:14)
[2023-11-02] MEDS: VIMPAT 150 MG PO ×2 (08:31→21:15)
[2023-11-02] MEDS: NEURONTIN 100 MG PO ×3 (08:31→21:15)
[2023-11-02 09:26] LABS: Blood Urea Nitrogen 44 mg/dl (7-17); Calcium 8.5 mg/dl (8.4-10.2); Carbon Dioxide 23 mmol/L (22-30); Chloride 109 mmol/L (98-107); Estimated Creatinine Clearance 59 ml/min; Glucose 98 mg/dl (70-99); Potassium 3.8 mmol/L (3.5-5.1); Sodium 135 mmol/L (135-145); eGFR > 60.00
--- NOTE | 2023-11-02 11:02 | W.PN.HOSP.TC ---
Today's Communication/Plan
-
Nephro recs
trend bmp
Await placement
Assessment / Plan
Assessment / Plan
IMPRESSION:
Acute Delirium from Acute Kidney Injury
Hyponatremia
Metabolic Acidosis from Renal Failure
Conditions prior to Admission
History of Seizure
Depression
Anxiety
Hypertension
Dementia with Behavioral Disturbance
Chronic Ambulatory Dysfunction/L5 Spinal Fracture.
Plan
#Acute Delirium from Acute Kidney Injury
#Hyponatremia
#Metabolic Acidosis from Renal Failure
-s/p Bicarb infusion
-Euvolemic on examination
-Bladder Scan
-Renal Ultrasound Simple right renal cysts. Nonvisualization of the left kidney. Limited exam.
-FeNA 0.8% suggesting PreRenal
-Cr stabilized and wnl. Acidosis resolved. Trend bmp.
#HTN Primary
Stable. Monitor. On Labetalol 50mg BID and Procardia 30mg BID
Continue to Hold Lisinopril. and Spironolactone seems to have been added recently.
Monitor BP closely. Overall was well controlled yesterday.
May not need aldactone on dc.
#Hx of Seizure
-Continue Vimpat.Recent seizures.
#Chronic Ambulatory Dysfunction/L5 Spinal Fracture
-PT/OT ordered
#Dementia with Behavioral Disturbance
-Continue Risperidone.
#Nicotine Dependence
-Continue Nicotine Patch
#Benzo Dependence
-Restart Alprazolam PRN
Code Status: Full code'
DVT Prophylaxis: Heparin
d/w with spouse at bedside -requesting SNF placement. CM aware.
Anticipated Discharge: Within 24 hours
Subjective/Interval History
-
Date of Service: November 02, 2023
No overnight events
tolerating diet
Objective Data
-
Labs:
Laboratory Results
11/02/23
08:53
Sodium 135
Potassium 3.8
Chloride 109 H
Carbon Dioxide 23
BUN 44 H
Creatinine 0.6
Glucose 98
Calcium 8.5
Vital Signs:
Vital Signs
Temp Pulse Resp BP Pulse Ox
98.6 F 75 14 152/75 96
11/02/23 07:40 11/02/23 07:40 11/02/23 07:40 11/02/23 07:40 11/02/23 07:40
I&O
11/01/23 11/02/23 11/03/23
06:59 06:59 06:59
Intake Total 600 / 600 330 / 330
Balance 600 / 600 330 / 330
Physical Exam
-
General: Well Developed, Well Nourished and No Apparent Distress
HEENT: Normocephalic, Atraumatic and Moist Mucous Membranes
Respiratory: Clear to Auscultation; Negative Rales or Rhonchi
Cardiac: Regular Rhythm and S1/S2
GI: Soft, Nontender, Nondistended and Normal Bowel Sounds
Musculoskeletal: No Clubbing, No Cyanosis and No Edema
Neuro: Awake, Alert, Oriented (oriented to person and place) and No Motor Deficits
Psych: Calm
[2023-11-02] MEDS: TYLENOL 650 MG PO (13:22)
--- NOTE | 2023-11-02 14:13 | W.PN.NEPH.PH ---
Today's Communication / Plan
-
observe
Assessment/Plan
-
IMP:
TME/Acute Delirium
AUGUSTINE
Mild Hyperkalemia
AGAMA
Azotemia
Hyponatremia
Nicotine Dependence
Seizure
Chronic benzo use
HTN-
Dementia with Behavioral Disturbance
Chronic Ambulatory Dysfunction/L5 spinal fx
Plan:
Recent d/c on 10/25 after treating SZ and CHF, HTN returns with AMS and AUGUSTINE
UA bland, Fena low 0.8, limited US could not see left kidney
suspect AUGUSTINE from hypovolemia and med effect, recent addition of Aldactone with ACEI
cr improved close to baseline
monitor with out IVF
she seem euvolemic on exam with out JVD, though has chr LE edema
monitor daily wts
BP stable on BB only, holding Aldactone
resume ACEI at d/c
will s/o , call with ?s
-
-
Date of Service: November 02, 2023
CC / HPI / ROS
-
Chief Complaint:
AUGUSTINE
History of Present Illness:
cr improved to 0.6, BUN in 44
Bp stable,
Review of Systems:
no cp or sob
non ambulatory
Labs
-
Labs:
WBC 3.6 10^3/uL (4.8-10.8) L 11/01/23 05:56
RBC 4.15 10^6/uL (4.20-5.40) L 11/01/23 05:56
Hgb 10.3 g/dL (12.0-16.0) L 11/01/23 05:56
Hct 31.9 % (37.0-47.0) L 11/01/23 05:56
Plt Count 258 10^3/uL (130-400) 11/01/23 05:56
Sodium 135 mmol/L (135-145) 11/02/23 08:53
Potassium 3.8 mmol/L (3.5-5.1) 11/02/23 08:53
Chloride 109 mmol/L (98-107) H 11/02/23 08:53
Carbon Dioxide 23 mmol/L (22-30) 11/02/23 08:53
BUN 44 mg/dl (7-17) H 11/02/23 08:53
Creatinine 0.6 mg/dL (0.6-1.0) 11/02/23 08:53
eGFR > 60.00 11/02/23 08:53
Glucose 98 mg/dl (70-99) 11/02/23 08:53
Calcium 8.5 mg/dl (8.4-10.2) 11/02/23 08:53
Albumin 4.3 g/dl (3.5-5.0) 10/30/23 11:28
Physical Exam
-
Vital Signs:
Vital Signs
Temp Pulse Resp BP Pulse Ox
98.1 F 73 18 131/67 96
11/02/23 11:45 11/02/23 11:45 11/02/23 11:45 11/02/23 11:45 11/02/23 11:45
Cardiovascular:: Regular rate and rhythm
Respiratory:: Bilateral: CTA (anteriorly)
Lung Excursion:: Normal
Abdomen:: Nontender and Soft
Extremity Edema:: +2: Bilateral: (chronic)
Chang Catheter: No
[2023-11-02] MEDS: LIPITOR 10 MG PO (17:54)
[2023-11-03 03:25] VITALS: BP 154/70
--- NOTE | 2023-11-03 05:20 | PTCARENOTE ---
Pt received from previous shift in bed. AAOx2 (time) anxious, calling out, banging hairbrush on siderail. Telemetry = SR. Full physical assessment documented (refer to worklist). Static overlay placed. Pt uses bedpan at time, otherwise
incontinent. Completed bed bath provided. Bed alarm active for safety. Call andrews within reach, encouraged use. Monitoring continues .
[2023-11-03 06:52] LABS: Blood Urea Nitrogen 26 mg/dl (7-17); Calcium 8.5 mg/dl (8.4-10.2); Carbon Dioxide 22 mmol/L (22-30); Chloride 110 mmol/L (98-107); Estimated Creatinine Clearance 59 ml/min; Glucose 83 mg/dl (70-99); Potassium 3.9 mmol/L (3.5-5.1); Sodium 134 mmol/L (135-145); eGFR > 60.00
[2023-11-03 07:00] VITALS: BP 163/83
[2023-11-03] MEDS: HEPARIN 5000 UNITS SC ×3 (07:59→23:09)
[2023-11-03] MEDS: TRANDATE 50 MG PO ×2 (07:59→20:45)
[2023-11-03] MEDS: PROCARDIA XL (EXTENDED RELEASE) 30 MG PO ×2 (07:59→20:46)
[2023-11-03] MEDS: VIMPAT 150 MG PO ×2 (08:01→20:44)
[2023-11-03] MEDS: NICODERM TRANSDERMAL 21 MG TRANSDERM (08:01)
[2023-11-03] MEDS: NEURONTIN 100 MG PO ×3 (08:01→20:46)
[2023-11-03] MEDS: RISPERDAL 0.25 MG PO ×2 (08:01→20:44)
[2023-11-03] MEDS: CELEXA 20 MG PO (08:01)
--- NOTE | 2023-11-03 08:59 | W.PN.HOSP.TC ---
Today's Communication/Plan
-
resume CHAIRMAN Lisinopril
dispo planning for SNF
Assessment / Plan
Assessment / Plan
IMPRESSION:
Acute Delirium from Acute Kidney Injury
Hyponatremia
Metabolic Acidosis from Renal Failure
Conditions prior to Admission
History of Seizure
Depression
Anxiety
Hypertension
Dementia with Behavioral Disturbance
Chronic Ambulatory Dysfunction/L5 Spinal Fracture.
Plan
#Acute Delirium from Acute Kidney Injury
#Hyponatremia
#Metabolic Acidosis from Renal Failure
-s/p Bicarb infusion
-Euvolemic on examination
-Bladder Scan
-Renal Ultrasound Simple right renal cysts. Nonvisualization of the left kidney. Limited exam.
-FeNA 0.8% suggesting PreRenal
-Cr stabilized and wnl. Acidosis resolved.
-OK to resume Lisinopril today
-hold Spironolactone
#HTN Primary
Stable. Monitor. On Labetalol 50mg BID and Procardia 30mg BID
Resume Lisinopril as SBP 160's this AM (range 150's-170's)
Stop Aldactone
#Hx of Seizure
-Continue Vimpat.Recent seizures.
#Chronic Ambulatory Dysfunction/L5 Spinal Fracture
-PT/OT ordered
-dispo planning for SNF
#Dementia with Behavioral Disturbance
-Continue Risperidone.
#Nicotine Dependence
-Continue Nicotine Patch
#Benzo Dependence
-Restart Alprazolam PRN
Code Status: Full code'
DVT Prophylaxis: Heparin
d/w with spouse at bedside -requesting SNF placement. CM aware.
Anticipated Discharge: Within 24 hours
Subjective/Interval History
-
Date of Service: November 03, 2023
feeling well
confusion seems resolved
no new complaints
denies shortness of breath
Objective Data
-
Labs:
Laboratory Results
11/03/23
05:33
Sodium 134 L
Potassium 3.9
Chloride 110 H
Carbon Dioxide 22
BUN 26 H
Creatinine 0.5 L
Glucose 83
Calcium 8.5
Vital Signs:
Vital Signs
Temp Pulse Resp BP Pulse Ox
98.2 F 81 18 163/83 97
11/03/23 07:00 11/03/23 07:59 11/03/23 07:00 11/03/23 07:59 11/03/23 07:00
I&O
11/02/23 11/03/23 11/04/23
06:59 06:59 06:59
Intake Total 330 / 330 240 / 240
Balance 330 / 330 240 / 240
Review of Systems
-
History Source: Patient
All other systems: Reviewed and negative
Physical Exam
-
General: Well Developed, Well Nourished and No Apparent Distress
HEENT: Normocephalic, Atraumatic and Moist Mucous Membranes
Respiratory: Clear to Auscultation; Negative Rales or Rhonchi
Cardiac: Regular Rhythm and S1/S2
GI: Soft, Nontender, Nondistended and Normal Bowel Sounds
Musculoskeletal: No Clubbing, No Cyanosis and No Edema
Neuro: Awake, Alert, Oriented (oriented to person and place) and No Motor Deficits
Psych: Calm
Data Reviewed
-
Diagnostic Radiology: Report Reviewed by me
Labs: Labs Reviewed by me
[2023-11-03] MEDS: ZESTRIL 40 MG PO (09:17)
[2023-11-03 11:10] VITALS: BP 137/64
--- NOTE | 2023-11-03 11:39 | WOUNDNOTE ---
WON RN note: Patient admitted with acute renal failure and change in mental status.
See H&P for complete history. Lives at home with , current with caregivers 8 hrs a day and VN.
PMH: Dementia, seizures, smoker, HTN, abdominal aortic aneurysm, hyperlipidemia, spinal stenosis, gait dysfunction
Wound Location and type/assessment: Patient alert, pleasantly confused and cooperative. Known to service from last seen, 04/23/23 for cellulitis of legs. Since then legs have healed, now just dry skin, heels intact. Patient turned self easily to
sides, has large evolving DTI on sacral buttocks area, non blanchable maroon/purple. Patient was admitted with this pressure injury, suspect patient sits at home for prolonged periods of time. Gluteal cleft with non blanchable hawkins color, MASD also
present. Nurse Mulligan reports patient had several bouts of incontinent loose stools during the night. Patient remembers she sits in a wheelchair during the day, otherwise poor historian.
Appetite: Excellent, encourage protein in diet.
Pressure redistribution devices in place: Air overlay on bed, repositioned to R semi side lying position. Pillow placed under calves. Brought in air chair cushion for use on chair. Pillow under calves and foams applied to heels.
Plan: Silicone foam applied to buttocks/sacrum, may need to just use barrier cream if consistently having loose stools. Discussed offloading measures with nurse Mulligan and importance of turning schedule. Since patient turns self, can get up to
chair with good appetite will hold off on changing to air mattress unless patient refuses to turn. Patient expected for discharge to SNF within 24 hrs. per hospitalist note. Recommend ROHO cushion for w/c,an take air cushion upon discharge. Despite
preventative measures, suspect wound will open and evolve, may be stage 3 or 4 PI underneath.
Case Management: Will need air mattress at home and ROHO cushion for w/c if doesn't already have.
Will confirm orders with hospitalist and updated nurse. Updated care plan and will follow as needed.
--- NOTE | 2023-11-03 12:51 | CM ---
Addendum entered by Crystal Munguia 11/03/23 13:55:
Spoke with pt and at bedside
SNF - requested [facility]
Referrals sent in Care port
Plan - SNF tbd - will need auth
Original Note:
CM following for D/C planning
Pt medially ready for d/c
Called pts to discuss SNF options. LM on for him to return call
Plan - snf - tbd
[2023-11-03 15:00] VITALS: BP 155/79
[2023-11-03] MEDS: LIPITOR 10 MG PO (17:00)
[2023-11-03 19:50] VITALS: BP 169/84
[2023-11-03] MEDS: TYLENOL 650 MG PO (20:44)
[2023-11-03] MEDS: XANAX 0.5 MG PO (20:45)
[2023-11-03 23:53] VITALS: BP 126/51
[2023-11-04] VITALS (7 sets, daily range): BP systolic 134–163; BP diastolic 63–93; PULSE 78; O2SAT 97
[2023-11-04 06:16] LABS: Blood Urea Nitrogen 20 mg/dl (7-17); Calcium 8.6 mg/dl (8.4-10.2); Carbon Dioxide 27 mmol/L (22-30); Chloride 105 mmol/L (98-107); Estimated Creatinine Clearance 59 ml/min; Glucose 93 mg/dl (70-99); Potassium 3.3 mmol/L (3.5-5.1); Sodium 136 mmol/L (135-145); eGFR > 60.00
[2023-11-04] MEDS: HEPARIN 5000 UNITS SC ×3 (07:24→23:28)
[2023-11-04] MEDS: NEURONTIN 100 MG PO ×3 (07:25→21:41)
[2023-11-04] MEDS: CELEXA 20 MG PO (07:26)
[2023-11-04] MEDS: VIMPAT 150 MG PO ×2 (07:26→21:40)
[2023-11-04] MEDS: NICODERM TRANSDERMAL 21 MG TRANSDERM (07:27)
[2023-11-04] MEDS: ZESTRIL 40 MG PO (07:28)
[2023-11-04] MEDS: RISPERDAL 0.25 MG PO ×2 (07:28→21:41)
[2023-11-04] MEDS: TRANDATE 50 MG PO ×2 (07:32→21:41)
[2023-11-04] MEDS: PROCARDIA XL (EXTENDED RELEASE) 30 MG PO ×2 (07:33→21:41)
--- NOTE | 2023-11-04 08:31 | W.PN.HOSP.TC ---
Addendum entered and electronically signed by Magdalena Kirkland MD 11/04/23 14:19:
Severe protein calorie malnutrition
-appreciate dietary
Original Note:
Today's Communication/Plan
-
dispo planning
Assessment / Plan
Assessment / Plan
IMPRESSION:
Acute Delirium from Acute Kidney Injury
Hyponatremia
Metabolic Acidosis from Renal Failure
Conditions prior to Admission
History of Seizure
Depression
Anxiety
Hypertension
Dementia with Behavioral Disturbance
Chronic Ambulatory Dysfunction/L5 Spinal Fracture.
Plan
#Acute Delirium from Acute Kidney Injury
#Hyponatremia
#Metabolic Acidosis from Renal Failure
-s/p Bicarb infusion
-Euvolemic on examination
-Bladder Scan
-Renal Ultrasound Simple right renal cysts. Nonvisualization of the left kidney. Limited exam.
-FeNA 0.8% suggesting PreRenal
-Cr stabilized and wnl. Acidosis resolved.
-Lisinopril resumed
-hold Spironolactone now and at DC
#HTN Primary
Stable. Monitor. On Labetalol 50mg BID and Procardia 30mg BID
Lisinopril resumed
Stop Aldactone
#Hx of Seizure
-Continue Vimpat.Recent seizures.
#Chronic Ambulatory Dysfunction/L5 Spinal Fracture
-PT/OT ordered
-dispo planning for SNF
#Dementia with Behavioral Disturbance
-Continue Risperidone.
#Nicotine Dependence
-Continue Nicotine Patch
#Benzo Dependence
-Restart Alprazolam PRN
Code Status: Full code'
DVT Prophylaxis: Heparin
d/w with spouse at bedside -requesting SNF placement. CM aware.
Anticipated Discharge: Within 24 hours
Subjective/Interval History
-
Date of Service: November 04, 2023
feeling well
no new complaints
Objective Data
-
Labs:
Laboratory Results
11/04/23
05:08
Sodium 136
Potassium 3.3 L
Chloride 105
Carbon Dioxide 27
BUN 20 H
Creatinine 0.5 L
Glucose 93
Calcium 8.6
Vital Signs:
Vital Signs
Temp Pulse Resp BP Pulse Ox
97.6 F 64 16 154/69 100
11/04/23 07:41 11/04/23 07:41 11/04/23 07:41 11/04/23 07:41 11/04/23 07:41
I&O
11/03/23 11/04/23 11/05/23
06:59 06:59 06:59
Intake Total 240 / 240 240 / 240
Balance 240 / 240 240 / 240
Review of Systems
-
History Source: Patient
All other systems: Reviewed and negative
Physical Exam
-
General: Well Developed, Well Nourished and No Apparent Distress
HEENT: Normocephalic, Atraumatic and Moist Mucous Membranes
Respiratory: Clear to Auscultation; Negative Rales or Rhonchi
Cardiac: Regular Rhythm and S1/S2
GI: Soft, Nontender, Nondistended and Normal Bowel Sounds
Musculoskeletal: No Clubbing, No Cyanosis and No Edema
Neuro: Awake, Alert, Oriented (oriented to person and place) and No Motor Deficits
Psych: Calm
Data Reviewed
-
Diagnostic Radiology: Report Reviewed by me
Labs: Labs Reviewed by me
[2023-11-04] MEDS: KCL 20 MEQ PO (08:45)
--- NOTE | 2023-11-04 09:56 | PN.CDI ---
CDI
- -
CDI:
Physician Documentation Request
Admit Date: 10/30/23 15:38
Dear Doctor Isael,
Patient admitted with AUGUSTINE.
10/30 Superintendent Logging Assessment: 'With weight loss of > 10% in 6 months and < 75% needs > 1 month as well as during [address] RD observed severe temporal wasting, protrusion of clavical, apparent ribs, orbital area sunken in, loss over interosseous.
Pt meets AND/ ASPEN criteria for severe protein calorie malnutrition of chronic illness.'
Based on the information, which of the following most accurately represents the patient's nutritional status?
Severe protein calorie malnutrition
Other
Itmann Criteria ([facility] Hospitalist 2017)
2 or more criteria must be present for either
non severe or severe malnutrition
Note that the criteria differs related to the
presence of an acute or chronic illness
Acute Illness Chronic Illness
Energy Intake Non Severe: <75% for >7 days Non Severe: <75% for >1 month
Severe: <50% for >5 days Severe: <75% for >1 month
Weight Loss Non Severe: 1-2% over 1 week Non Severe: 5% over 1 month
5% over 1 month 7.5% over 3 months
7.5% over 3 months 10% over 6 months
1 year N/A 20% over 1 year
Severe: >2% over 1 week Severe: >5% over 1 month
>5% over 1 month >7.5% over 3 months
>7.5% over 3 months >10% over 6 months
1 year N/A >20% over 1 year
Body Fat Non Severe: Mild Decrease Non Severe: Mild Loss
Severe: Moderate Decrease Severe: Severe Loss
Muscle Mass Non Severe: Mild Decrease Non Severe: Mild Loss
Severe: Moderate Decrease Severe: Severe Loss
Fluid Accumulation Non Severe: Mild Accumulation Non Severe: Mild Accumulation
Severe: Moderate to severe Severe: Moderate to severe
accumulation accumulation
Reduced Barrel Inspector Tight Strength Non Severe: N/A Non Severe: N/A
Severe: Measurably reduced Severe: Measurably reduced
Use of terms such as suspected, likely, concern for, or probable (associated with a specific diagnosis that is being evaluated, monitored, or treated as if it exists) are acceptable and can be coded in the inpatient setting, when documented at the
time of discharge.
Thank you,
Tamar Mcdermott RN, BSN
CDI Specialist
Available via [facility] text
Please use your independent medical judgment in providing your response.
--- NOTE | 2023-11-04 14:19 | W.DCSUMMARY ---
Discharge Summary
Discharge Data
Date of Admission: 10/30/23
Date of Discharge: 11/05/23
-
Pending Results: No
Hospital Course
Discharging Physician : Dr. Magdalena Kirkland
Disposition : SNF
Primary care physician : Dr. Ting Reeder
Principal Discharge diagnosis : acute kidney injury
Hospital Course :
Ms. Salina Patel is a 78 yo woman with hx dementia, severe spinal stenosis, ambulatory dysfunction, seizure disorder, anxiety/depression with recent admission 10/20-10/26/23 for seizures with hospital course complicated by flash pulmonary edema
(spironolactone added to med regimen) presents to the ER with increased confusion. Triage vitals stable. Labs with Na 133, K+ 5.5, BUN 112, Cr 3.9. 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
lisinopril, aldactone held and patient was given IVF with bicarb. Fena low 0.8 suggesting pre-renal etiology, limited US could not see left kidney. Patient's renal function returned to baseline with IVF. Her lisinopril was resumed prior to
discharge and Aldactone stopped.
Patient will get repeat labs in one week and follow up closely with her PCP.
Time spent on discharge was 32 minutes.
Important imaging findings :
Procedure findings :
Discharge Plan
-
Patient Disposition: Fdc/SNF
Discharge Diagnosis/Procedures: acute kidney injury
Diet: Regular
Activity: As tolerated
Driving Restrictions: As prior to admission
Bathing Restrictions: None
Blood Work: BMP on Friday11/10/23
Other Services: PT and OT
Activity Restrictions/Additional Instructions:
Wound Care Instructions
Sacrum/buttocks: clean with soap and water, Silicone foam daily, may need to just use barrier cream if consistently having loose stools.
If opens and starts to drain recommend Xeroform and abd pad daily secure with mesh underwear.
R buttock/ischium: clean with soap and water, silicone foam change q 3 days and prn soilage.
Air mattress with frequent turning schedule
Can take air chair cushion upon discharge to use when sitting. Recommend ROHO cushion for wheelchair.
Increase protein in diet
cut down on smoking,
Follow up at wound care center call for an appointment.
Referrals:
Irish Reeder MD [Family Provider] -
Additional Discharge Medication Instructions: STOP ALDACTONE
Your Percocet dose is decreased to 1/2 pill as needed. You did not require pain meds in the hospital. Take only as needed.
Continue nicotine patch
Prescriptions:
New
nicotine 21 mg/24 hr Patch 24 Hour
21 mg transdermal DAILY Qty: 0 0RF
Continued
lisinopril 20 MG tablet
40 mg PO DAILY
citalopram 20 MG tablet
20 mg PO DAILY
multivitamin with folic acid [Tab-A-Charo] 1 TABLET tablet
1 tab PO DAILY
polyethylene glycol 3350 [HealthyLax] 17 gram powder in packet
17 g PO DAILY PRN (Reason: constipation)
gabapentin 300 mg Capsule
300 mg PO TID Qty: 0 0RF
atorvastatin 10 MG tablet
10 mg PO QPM Qty: 30 1RF
ferrous sulfate 325 mg (65 mg iron) tablet
325 mg PO Q48H
nifedipine 30 mg Tablet Extended Release
30 mg PO BID Qty: 60 0RF
lacosamide 100 mg Tablet
150 mg PO BID Qty: 60 2RF
Rx Instructions:
10/31/23: per PDMP, filled #60 tablets on 10/27/23 at [facility]
labetalol 100 mg Tablet
50 mg PO BID
potassium chloride [Klor-Con] 20 mEq packet
20 meq PO DAILY
alprazolam 0.5 MG tablet
0.5 mg PO HSPRN PRN (Reason: anxiety ) Qty: 5 0RF
Rx Instructions:
10/31/23: per PDMP filled alprazolam 0.5mg #20 tablets 10/07/23 at [facility]
Changed
oxycodone-acetaminophen 10-325 mg tablet
0.5 tab PO Q6H PRN (Reason: pain) Qty: 10 0RF
Rx Instructions:
10/31/23: per PDMP, filled #30 tablets on 09/18/23 at [facility].
Discontinued
hydrocodone-acetaminophen 10-325 mg tablet
1 tab PO Q6HPRN PRN (Reason: severe back pain)
Rx Instructions:
10/31/23: per PDMP filled #40 tablets on 10/15/23 at [facility].
Discharge Orders:
Discharge Patient (As Directed); Ordered 11/05/23
Ordered By: Magdalena Kirkland
--- NOTE | 2023-11-04 15:01 | CM ---
[facility] and [facility] - currently do not have beds
[facility] - no response
TT and Call to Selene at [facility] x2 to check on bed availability - waiting on response
Spoke with pt and her son at bedside - updated of bed status
Requested additional choices - given list of facilities
CM will follow up with pt/family
[2023-11-04] MEDS: LIPITOR 10 MG PO (17:05)
[2023-11-04] MEDS: XANAX 0.5 MG PO (21:42)
[2023-11-05 07:00] VITALS: BP 149/75
[2023-11-05] MEDS: TRANDATE 50 MG PO (08:03)
[2023-11-05] MEDS: PROCARDIA XL (EXTENDED RELEASE) 30 MG PO (08:04)
[2023-11-05] MEDS: NEURONTIN 100 MG PO ×2 (08:04→15:05)
[2023-11-05] MEDS: ZESTRIL 40 MG PO (08:04)
[2023-11-05] MEDS: RISPERDAL 0.25 MG PO (08:04)
[2023-11-05] MEDS: CELEXA 20 MG PO (08:04)
[2023-11-05] MEDS: NICODERM TRANSDERMAL 21 MG TRANSDERM (08:05)
[2023-11-05] MEDS: HEPARIN 5000 UNITS SC ×2 (08:05→15:04)
[2023-11-05] MEDS: VIMPAT 150 MG PO (08:05)
--- NOTE | 2023-11-05 10:17 | WOUNDNOTE ---
WON RN NOTE: Evolving sacral wound assessed, patient turned self on air bed. Sacrum with white patch of skin suspect will open up with stage 3 PI. All remaining purple area on buttocks is sloughing off and appears to be partial thickness. R
ischium/distal buttocks with non blanchable red patch, stage1 PI and flaky skin distally, suspect had on admission. Foams changed on sacrum and foam applied to R ischium. Heels remain stage 1 PI, foams in use, pillow placed under calves.
Repositioned patient onto L semi side lying position. Patient has fair appetite, at bedside, instructed him importance of protein in her diet. Pressure ulcer prevention measures reviewed with and aware that sacral ulcer may evolve
and open up to reveal deeper PI. states he understands. Patient waiting for bed available at SNF. Updated nurse and discharge instructions.
--- NOTE | 2023-11-05 10:22 | W.PN.HOSP.TC ---
Today's Communication/Plan
-
OK for DC today
Assessment / Plan
Assessment / Plan
IMPRESSION:
Acute Delirium from Acute Kidney Injury
Hyponatremia
Metabolic Acidosis from Renal Failure
Conditions prior to Admission
History of Seizure
Depression
Anxiety
Hypertension
Dementia with Behavioral Disturbance
Chronic Ambulatory Dysfunction/L5 Spinal Fracture.
Plan
#Acute Delirium from Acute Kidney Injury
#Hyponatremia
#Metabolic Acidosis from Renal Failure
-s/p Bicarb infusion
-Euvolemic on examination
-Bladder Scan
-Renal Ultrasound Simple right renal cysts. Nonvisualization of the left kidney. Limited exam.
-FeNA 0.8% suggesting PreRenal
-Cr stabilized and wnl. Acidosis resolved.
-Lisinopril resumed
-hold Spironolactone now and at DC
#HTN Primary
Stable. Monitor. On Labetalol 50mg BID and Procardia 30mg BID
Lisinopril resumed
Stop Aldactone
#Hx of Seizure
-Continue Vimpat.Recent seizures.
#Chronic Ambulatory Dysfunction/L5 Spinal Fracture
-PT/OT ordered
-dispo planning for SNF
#Dementia with Behavioral Disturbance
-Continue Risperidone.
#Nicotine Dependence
-Continue Nicotine Patch
#Benzo Dependence
-Restart Alprazolam PRN
Code Status: Full code'
DVT Prophylaxis: Heparin
d/w with spouse at bedside -requesting SNF placement. CM aware.
Anticipated Discharge: Today
Subjective/Interval History
-
Date of Service: November 05, 2023
feeling well
wants to leave today
Objective Data
-
Vital Signs:
Vital Signs
Temp Pulse Resp BP Pulse Ox
98.0 F 72 18 149/75 97
11/05/23 07:00 11/05/23 08:03 11/05/23 07:00 11/05/23 08:03 11/05/23 09:38
I&O
11/04/23 11/05/23 11/06/23
06:59 06:59 06:59
Intake Total 240 / 240 680 / 680
Balance 240 / 240 680 / 680
Review of Systems
-
History Source: Patient
All other systems: Reviewed and negative
Physical Exam
-
General: Well Developed, Well Nourished and No Apparent Distress
HEENT: Normocephalic, Atraumatic and Moist Mucous Membranes
Respiratory: Clear to Auscultation; Negative Rales or Rhonchi
Cardiac: Regular Rhythm and S1/S2
GI: Soft, Nontender, Nondistended and Normal Bowel Sounds
Musculoskeletal: No Clubbing, No Cyanosis and No Edema
Neuro: Awake, Alert, Oriented (oriented to person and place) and No Motor Deficits
Psych: Calm
Data Reviewed
-
Diagnostic Radiology: Report Reviewed by me
Labs: Labs Reviewed by me
--- NOTE | 2023-11-05 10:31 | W.DS.TRANS ---
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
-
Discharge Instructions:
Discharge Diagnosis/Procedures acute kidney injury
Diet Regular
Activity As tolerated
Driving Restrictions As prior to admission
Bathing Restrictions None
Other Services PT,OT
Instructions:
Stand-Alone Forms:
Changes to Home Medications: Yes
Discharge Medications:
DC Medications w/original date entered in [employer]
citalopram 20 mg tablet 20 mg PO DAILY Mental Health/Anxiety 03/09/21
lisinopril 20 mg tablet 40 mg PO DAILY Blood pressure 03/09/21
multivitamin with folic acid 400 mcg tablet (Tab-A-Charo) 1 tab PO DAILY Supplement 03/09/21
polyethylene glycol 3350 17 gram oral powder packet (HealthyLax) 17 g PO DAILY PRN constipation 05/11/23
atorvastatin 10 mg tablet 10 mg PO QPM High cholesterol #30 tabs 05/24/23
gabapentin 300 mg capsule 300 mg PO TID neuropathy #0 caps 05/24/23
ferrous sulfate 325 mg (65 mg iron) tablet 325 mg PO Q48H Supplement 10/21/23
lacosamide 100 mg tablet 150 mg PO BID Seizures #60 tabs 10/25/23
nifedipine 30 mg tablet,extended release 30 mg PO BID htn #60 tabs 10/25/23
labetalol 100 mg tablet 50 mg PO BID Blood Pressure 10/30/23
potassium chloride 20 mEq oral packet (Klor-Con) 20 meq PO DAILY Electrolyte Repletion 10/31/23
alprazolam 0.5 mg tablet 0.5 mg PO HSPRN PRN anxiety #5 tabs 11/05/23
nicotine 21 mg/24 hr daily transdermal patch 21 mg transdermal DAILY #0 ea 11/05/23
oxycodone-acetaminophen 10 mg-325 mg tablet 0.5 tab PO Q6H PRN pain #10 tabs 11/05/23
Home Medication Changes
STOP ALDACTONE
Your Percocet dose is decreased to 1/2 pill as needed. You did not require pain meds in the hospital. Take only as needed.
Continue nicotine patch
Pending Results: No
--- NOTE | 2023-11-05 11:18 | CM ---
Addendum entered by Crystal Munguia 11/05/23 14:40:
Corrected auth # for Ambulance
[id number]
Addendum entered by Crystal Munguia 11/05/23 12:36:
Transport to [facility] at 1630
Facility and pts made aware
Discussed IMM with pts
Original Note:
Pt medically ready
Received message from Selene at [facility] - accepted pt
Called [facility] to obtain auth ([phone], opt 5)
spoke with nurse Arriaga
Auth approved for 8 days starting 11/04-11/11
On 11/11 Fax updated clinicals to [phone]
Call [phone], opt 5 with questions
Auth# - [id number]
Ambulance auth obtained
Auth # [id number]
Plan - transfer to [facility]
Report - [phone]
Fax - [phone]
[2023-11-05 11:43] VITALS: BMI 23.8
[2023-11-05 15:00] VITALS: BP 153/71
== END 2023-11-05 16:10 | DRG 682 ==
LOC: 3 WEST ACU 15:38
PROVIDERS: Hospitalist; Nurse Practitioner; Student in an Organized Health Care Education/Training Program; ADMITTING PHYSICIAN Family Medicine; ATTENDING PHYSICIAN Student in an Organized Health Care Education/Training Program; EMERGENCY PHYSICIAN Emergency Medicine; FAMILY PHYSICIAN Family Medicine; OTHER PHYSICIAN Internal Medicine
DX: N17.9 Acute kidney failure, unspecified (principal); E43 Unspecified severe protein-calorie malnutrition; G92.8 Other toxic encephalopathy; E87.1 Hypo-osmolality and hyponatremia; E87.20 Acidosis, unspecified; F03.C18 Unspecified dementia, severe, with other behavioral disturbance; F17.210 Nicotine dependence, cigarettes, uncomplicated; E86.1 Hypovolemia; E87.5 Hyperkalemia; I50.9 Heart failure, unspecified; I11.0 Hypertensive heart disease with heart failure; Z99.3 Dependence on wheelchair; Z68.23 Body mass index [BMI] 23.0-23.9, adult
CPT/HCPCS: 36569; 70450; 76770; 80048; 80053; 81003; 81015; 82570; 84300; 85025; 87077; 87086; 87147; 93005; 96360; 97163; 97167; 97530; 97535; 99285; 99406; J7030

== ENCOUNTER → 2023-11-07 11:05 | Outpatient (REF) | payer OTHER, SELFPAY ==
[2023-11-07 11:51] LABS: Blood Urea Nitrogen 32 mg/dl (7-17); Calcium 9.1 mg/dl (8.4-10.2); Carbon Dioxide 21 mmol/L (22-30); Chloride 100 mmol/L (98-107); Glucose 114 mg/dl (70-99); Potassium 4.1 mmol/L (3.5-5.1); Sodium 133 mmol/L (135-145); eGFR 56.95
== END ==
LOC: OLABP 11:05
PROVIDERS: ATTENDING PHYSICIAN Family Medicine
DX: F03.90 Unspecified dementia, unspecified severity, without behavioral disturbance, psychotic disturbance, mood disturbance, and anxiety (principal); M62.81 Muscle weakness (generalized); M54.16 Radiculopathy, lumbar region; L03.116 Cellulitis of left lower limb; L03.115 Cellulitis of right lower limb; M48.062 Spinal stenosis, lumbar region with neurogenic claudication; I11.0 Hypertensive heart disease with heart failure; I50.30 Unspecified diastolic (congestive) heart failure; M54.9 Dorsalgia, unspecified
CPT/HCPCS: 36415; 80048

== ENCOUNTER → 2023-11-14 12:53 | Outpatient (REF) | payer OTHER, SELFPAY ==
[2023-11-14 13:17] LABS: % Basophils 0.3 % (0-2); % Eosinophils 0.2 % (0-6); % Immature Granulocytes 0.3 % (0-0.5); % Lymphocytes 6.7 % (20.5-51.1); % Monocytes 4.5 % (1.7-9.3); Absolute Lymphocytes 0.7 10^3/uL (1.2-3.4); Absolute Monocytes 0.4 10^3/uL (0.1-0.6); Absolute Neutrophils 8.5 10^3/uL (1.4-6.5); Hematocrit 29.5 % (37.0-47.0); Hemoglobin 9.9 g/dL (12.0-16.0); Mean Corp Hgb Conc. 33.6 g/dL (33.0-37.0); Mean Corpuscular Volume 74.5 fL (81.0-99.0); Mean Platelet Volume 9.9 fL (7.4-10.4); Nucleated Red Blood Cells % 0 %; Platelet Count 210 10^3/uL (130-400); Red Blood Cell Count 3.96 10^6/uL (4.20-5.40); Red Cell Dist. Width 18.4 % (11.5-14.5); White Blood Cell Count 9.7 10^3/uL (4.8-10.8)
[2023-11-14 13:28] LABS: Blood Urea Nitrogen 52 mg/dl (7-17); Calcium 9.1 mg/dl (8.4-10.2); Carbon Dioxide 24 mmol/L (22-30); Chloride 99 mmol/L (98-107); Glucose 91 mg/dl (70-99); Potassium 5.1 mmol/L (3.5-5.1); Sodium 132 mmol/L (135-145); eGFR 41.57
== END ==
LOC: OLABP 12:53
PROVIDERS: ATTENDING PHYSICIAN Family Medicine
DX: I10 Essential (primary) hypertension (principal); F41.9 Anxiety disorder, unspecified; I71.40 Abdominal aortic aneurysm, without rupture, unspecified; M79.89 Other specified soft tissue disorders; R56.9 Unspecified convulsions; F32.9 Major depressive disorder, single episode, unspecified
CPT/HCPCS: 36415; 80048; 85025

== ENCOUNTER 2023-11-16 04:27 | Inpatient (IN) | payer OTHER, SELFPAY ==
[2023-11-15 22:23] VITALS: BP 112/55
[2023-11-15 22:24] VITALS: BP 112/55
[2023-11-15 22:49] LABS: % Basophils 0.4 % (0-2); % Eosinophils 0.1 % (0-6); % Immature Granulocytes 1.2 % (0-0.5); % Lymphocytes 4.3 % (20.5-51.1); % Monocytes 4.3 % (1.7-9.3); % Neutrophils 89.7 % (42.2-75.2); Absolute Basophils 0.1 10^3/uL (0-0.2); Absolute Immature Granulocytes 0.2 10^3/uL (0-0.05); Absolute Lymphocytes 0.6 10^3/uL (1.2-3.4); Absolute Monocytes 0.6 10^3/uL (0.1-0.6); Absolute Neutrophils 12.3 10^3/uL (1.4-6.5); Hemoglobin 9.5 g/dL (12.0-16.0); Mean Corp Hgb Conc. 31.7 g/dL (33.0-37.0); Mean Corpuscular Hgb 25.1 pg (27.0-31.0); Mean Corpuscular Volume 79.2 fL (81.0-99.0); Mean Platelet Volume 9.3 fL (7.4-10.4); Nucleated Red Blood Cells % 0 %; Platelet Count 209 10^3/uL (130-400); Red Blood Cell Count 3.79 10^6/uL (4.20-5.40); Red Cell Dist. Width 18.8 % (11.5-14.5); White Blood Cell Count 13.7 10^3/uL (4.8-10.8)
[2023-11-15 22:53] LABS: ALT (SGPT) 24 U/L (0-35); AST (SGOT) 34 U/L (14-36); Alkaline Phosphatase 147 U/L (38-126); Blood Urea Nitrogen 50 mg/dl (7-17); Calcium 8.9 mg/dl (8.4-10.2); Carbon Dioxide 23 mmol/L (22-30); Chloride 107 mmol/L (98-107); Glucose 102 mg/dl (70-99); Potassium 4.3 mmol/L (3.5-5.1); Sodium 134 mmol/L (135-145); Total Bilirubin 0.7 mg/dl (0.2-1.3); Total Protein 5.7 g/dl (6.3-8.2); eGFR 56.95
[2023-11-15 22:56] LABS: COVID-19 Antigen Negative (Negative)
[2023-11-15 23:00] VITALS: BP 99/48
[2023-11-16] VITALS (16 sets, daily range): BP systolic 93–160; BP diastolic 45–82
[2023-11-16 01:05] LABS: Urine Albumin Negative (Neg - Trace); Urine Bilirubin Negative (Negative); Urine Character Clear (Clear); Urine Color Yellow; Urine Glucose Negative (Negative); Urine Ketone Trace (Negative); Urine Leukocyte Trace (Negative); Urine Nitrite Negative (Negative); Urine Occult Blood Negative (Negative); Urine Specific Gravity 1.015 (<1.030); Urine Urobilinogen Negative (Neg - 1+)
[2023-11-16 01:46] LABS: Urine Amorphous Seen; Urine Red Blood Cell 0-2 /HPF (0-2)
[2023-11-16 01:47] LABS: Urine Bacteria Moderate (Negative)
--- NOTE | 2023-11-16 03:00 | ED.GENMED ---
History of Present Illness
General
Chief Complaint: Change in Mental Status
Source: family (Some), ambulance crew and snf records
Exam Limitations: dementia
Time Seen by Provider: 11/16/23 00:27
Nursing documentation reviewed up to this point in time: agreed with
Travel History
Have you had any contact with someone who has COVID-19?: Unable to Answer
Do you have any symptoms of coronavirus? Fever > 100 degrees, chills, cough, shortness of breath, sore throat, loss of taste or smell, muscle aches, or headache?: Unable to Answer
History of Present Illness
History of Present Illness:
78-year-old female with a past medical history as documented notable for dementia presents from [facility] via EMS for evaluation of a change in mental status and fever. Patient is unable to meaningfully participate in history due to
significant dementia. Most of history obtained from EMS, snf records, son. Apparently baseline patient has dementia but is able to speak and make her needs known. She notably had a recent admission from 10/29 until 11/08 for acute renal
failure suspected to be prerenal which improved with IV fluids. Had an admission in early October for seizures complicated by flash pulmonary edema. Over the past day or 2 she has had increased lethargy and has not been as talkative; now she is only
basically answering yes or no questions and can say her name which is a significant change. She has had a fever today per snf staff�received Tylenol at 4 PM. Sent to the emergency room for assessment. No coughing noted. No diarrhea or
vomiting noted.
Past History
Past History
ED Past Medical History: HTN, Hypercholesterolemia and Other
ED Past Surgical History: Cholecystectomy, Gynecological and Other
Social History
Tobacco: Smoker
Alcohol: None
Drug: None
Personal:
Living: with family
Review of Systems
Review of Systems
Unable to obtain full review of systems at this time due to: dementia
All Other Systems: Not applicable
Phy Exam
Physical Exam
Physical Exam:
General: Laying in bed very lethargic and chronically ill-appearing; able to tell me her first name only and answer yes/no questions occasionally
Head: Normocephalic, atraumatic
Eyes: Conjunctiva normal, pupils equal round reactive to light bilaterally
Throat: Airway intact, mucous membranes dry
Neck: Trachea midline, supple without meningismus
Lungs: Clear to auscultation bilaterally, no wheezing, rales, rhonchi
Heart: Regular rate and rhythm, no murmurs, gallops, or rubs
Abd: Soft, non distended, no apparent tenderness
Neuro: Lethargic but arousable, oriented x 1, not consistently following commands
Skin: Patient has unstageable sacral wound with some surrounding erythema and foul odor
Extremities: Chronic venous stasis changes in the lower extremities; distal extremities are warm and well-perfused
Scores
Heart Failure Risk
Heart Failure Risk Score: Not Applicable
Heart Score for Chest Pain Patients
STEMI patient?: Not applicable
Withdrawal Assessment of Alcohol
Withdrawal Assessment Completed?: Not applicable
Course
Orders/Labs/Results
Orders:
Orders
11/15/23 22:31
COVID-19 Antigen Urgent
Source: Nasal Swab
Complete Blood Count/With Diff Urgent
Comprehensive Metabolic Panel Urgent
Lactic Acid Urgent
Blood Culture Urgent
RYDER Source: Blood/Venous
Specimen Description:
Influenza A+B Rapid Molecular Urgent
RYDER Source: Nasal Swab
Specimen Description:
11/15/23 22:36
Blood Culture Urgent
RYDER Source: Blood/Venous
Specimen Description:
11/15/23 23:27
Straight cath- Treatment ONCE
Urinalysis Reflex To Culture Urgent
Date Specimen was Collected: 11/16/23
Time Specimen was Collected: 00:48
11/16/23 00:36
CR Chest Portable - 1 View Urgent
Comment:
Reason For Exam: fever
Reason Study Needs to be Portable: Unable to Transport
11/16/23 00:49
Urine Microscopic Reflex Cult Urgent
Urine Culture Urgent
RYDER Source: U
Specimen Description:
Date Specimen was Collected: 11/16/23
Time Specimen was Collected: 00:48
11/16/23 01:12
CT Head W/o Iv Contrast Urgent
Comment:
Reason For Exam: change in mentation
11/16/23 02:58
Acetaminophen [Tylenol/Feverall] 650 mg RECTAL NOW STA
Vancomycin [Vancocin] 1,500 mg 0.9% Sodium Chloride [Nss] 20 ml 0.9% Sodium Chloride 250 ml [Nss] 250 ml IV NOW
11/16/23 02:59
0.9% Sodium Chloride 500 ml [Nss] 500 ml IV BOLUS
Cefepime HCl [Maxipime] 1,000 mg IV NOW STA
11/16/23 03:05
Sterile Water [Sterile Water For Injection] 10 ml .ROUTE .STK-MED ONE
Abnormal Lab Results
11/15/23 11/16/23
22:31 00:49
WBC 13.7 H 10^3/uL
(4.8-10.8)
RBC 3.79 L 10^6/uL
(4.20-5.40)
Hgb 9.5 L g/dL
(12.0-16.0)
Hct 30.0 L %
(37.0-47.0)
MCV 79.2 L fL
(81.0-99.0)
MCH 25.1 L pg
(27.0-31.0)
MCHC 31.7 L g/dL
(33.0-37.0)
RDW 18.8 H %
(11.5-14.5)
Abs Immat Gran (auto) 0.2 H 10^3/uL
(0-0.05)
Absolute Neuts (auto) 12.3 H 10^3/uL
(1.4-6.5)
Absolute Lymphs (auto) 0.6 L 10^3/uL
(1.2-3.4)
Immature Gran % 1.2 H %
(0-0.5)
Neutrophils % 89.7 H %
(42.2-75.2)
Lymphocytes % 4.3 L %
(20.5-51.1)
Sodium 134 L mmol/L
(135-145)
BUN 50 H mg/dl
(7-17)
Glucose 102 H mg/dl
(70-99)
Alkaline Phosphatase 147 H U/L
(38-126)
Total Protein 5.7 L g/dl
(6.3-8.2)
Albumin 3.0 L g/dl
(3.5-5.0)
Urine Ketones Trace A
(Negative)
Leukocyte Esterase Rfl Trace A
(Negative)
Urine Bacteria (Reflex) Moderate A
(Negative)
11/15/23 22:31
11/15/23 22:31
Vital Signs
Initial and Last Documented VS:
Initial Vital Signs
Temp Pulse Resp BP Pulse Ox
36.5 C 80 20 112/55 94
11/15/23 22:23 11/15/23 22:23 11/15/23 22:23 11/15/23 22:23 11/15/23 22:23
Last Documented Vital Signs
Temp Pulse Resp BP Pulse Ox
38.2 C H 85 21 100/50 93
11/16/23 02:58 11/16/23 03:00 11/16/23 03:00 11/16/23 03:00 11/16/23 03:00
MDM/Problems Addressed
Differential Diagnosis Includes:
UTI, pneumonia, viral syndrome, infected sacral wound, electrolyte derangement/renal failure, CVA less likely
MDM/Problems Addressed:
78-year-old female presents with change in mental status associate with fever over the past day or 2. Afebrile initially but spiked a fever here to 38.2 �C. Vital signs otherwise normal. Exam as above. Plan to place an IV check labs including a
CBC and a CMP, lactate, blood cultures. Check urinalysis. Swab for COVID and flu. Check chest x-ray to rule out pneumonia. Will check CT head. Treat with some fluids and antipyretic. Monitor closely reassess at the above.
Labs reviewed: CBC shows a leukocytosis to 13.7. Stable anemia at 9.5. CMP shows slightly elevated BUN, IV fluids in progress. Her urinalysis has moderate bacteria but no significant pyuria�urine culture sent, infection slightly less likely
without pyuria but certainly a possibility. Viral swabs negative. Chest x-ray shows no clear pneumonia on my independent review. CT head negative for any acute pathology. Will plan to cover patient with broad-spectrum antibiotics to cover for
possible UTI versus infected sacral wound at this point as most likely sources for fever and altered mentation. Will admit for continued monitoring, follow cultures. Discussed with hospitalist for admission.
Chronic conditions affecting care:
Dementia
*Radiology
Radiology exam reviewed: preliminary read by ED provider and radiology read reviewed
*Pulse Oximetry
Patient hypoxic: no
*Critical Care Note
Total Time (30-74mins, 75-104mins- exclusive of procedures): Not Applicable
Data Reviewed
Review of Other/Old Records Reveals: Labs, Records, Progress Notes and Discharge Summary
Source: patient, records, family (Son) and ambulance crew
Patient Management
Discussion with other providers: Hospitalist (Discussed with hospitalist)
Escalation/DeEscalation of care consider admission/obs:
Admission indicated
ED Attending Note
-
Portions of this chart may have been created with voice recognition software.� Occasional wrong word or��sound alike� substitutions may have occurred due to the inherent limitations of voice recognition software.
Discharge Plan
Departure
Patient Disposition: Admit
Date of Disposition: 11/16/23
Time of Disposition: 03:04
Admit to doctor: Tree
Presentation/result/management discussed w/ accepting MD/DO: Hospitalist
Discharge Problem:
Acute UTI, Encephalopathy
Prescriptions:
No Action
lisinopril 20 MG tablet
40 mg PO DAILY
citalopram 20 MG tablet
20 mg PO DAILY
multivitamin with folic acid [Tab-A-Charo] 1 TABLET tablet
1 tab PO DAILY
polyethylene glycol 3350 [HealthyLax] 17 gram powder in packet
17 g PO DAILY PRN (Reason: constipation)
gabapentin 300 mg Capsule
300 mg PO TID Qty: 0 0RF
atorvastatin 10 MG tablet
10 mg PO QPM Qty: 30 1RF
ferrous sulfate 325 mg (65 mg iron) tablet
325 mg PO Q48H
nifedipine 30 mg Tablet Extended Release
30 mg PO BID Qty: 60 0RF
lacosamide 100 mg Tablet
150 mg PO BID Qty: 60 2RF
Rx Instructions:
10/31/23: per PDMP, filled #60 tablets on 10/27/23 at [facility]
labetalol 100 mg Tablet
50 mg PO BID
potassium chloride [Klor-Con] 20 mEq packet
20 meq PO DAILY
nicotine 21 mg/24 hr Patch 24 Hour
21 mg transdermal DAILY Qty: 0 0RF
alprazolam 0.5 MG tablet
0.5 mg PO HSPRN PRN (Reason: anxiety ) Qty: 5 0RF
Rx Instructions:
10/31/23: per PDMP filled alprazolam 0.5mg #20 tablets 10/07/23 at [facility]
oxycodone-acetaminophen 10-325 mg tablet
0.5 tab PO Q6H PRN (Reason: pain) Qty: 10 0RF
Rx Instructions:
10/31/23: per PDMP, filled #30 tablets on 09/18/23 at [facility].
Referrals:
Shawn Linder MD [Family Provider] -
Interventions
Interventions:
*Risk Screen - Suicide Last Done: 11/15/23 22:23
*General Assessment Last Done: 11/15/23 22:23
*Neglect/Abuse Screening Last Done: 11/15/23 22:23
*ED COVID-19 Vaccine History Last Done: 11/15/23 22:23
ED- Neurological Assessment Last Done: 11/15/23 22:26
Discharge Date and Time
Print Language: WALLISIAN
[2023-11-16] MEDS: MAXIPIME 1000 MG IV (03:28)
[2023-11-16] MEDS: NSS 500 IV (03:29)
[2023-11-16] MEDS: TYLENOL/FEVERALL 650 MG RECTAL ×2 (03:50→16:01)
[2023-11-16] MEDS: VANCOCIN 300 ML IV (03:55)
[2023-11-16] MEDS: VANCOCIN 300 MG IV (03:55)
--- NOTE | 2023-11-16 04:08 | HPS.HSE ---
Family Physician
-
Family Physician: Shawn Linder MD
Chief Complaint
-
AMS, sent form [place]
History of Present Illness
Patient is unable to meaningfully participate in history due to significant dementia.
Most of history obtained from ER Attending :
78F Res of [facility] , HX dementia, severe spinal stenosis, ambulatory dysfunction, seizure disorder, anxiety/depression flash pulmonary edema sent to ER for increased confusion and fever
At baseline, able to speak and make her needs known.
Reviewed 2 recent admissions:
10/29 - 11/08: AUGUSTINE suspected to be prerenal which improved with IV fluids.
10/20 - 10/25: Seizures complicated by flash pulmonary edema.
Last 2days she has had increased lethargy- basically answering yes or no questions and can say her name which is a significant change. Reported fever today per residential staff�received Tylenol at 4 PM. Sent to the emergency room for
assessment.
ROS : coughing noted. No diarrhea or vomiting
Medical History
Past Medical History
Past Medical History: Reports Dementia, HTN, Hypercholesterolemia and Seizures
Past Surgical History: Reports Cholecystectomy and Gynocological
Social History
Tobacco: Smoker
Alcohol: None
Drug: None
Living: Long-Term
Family History
Family History: Not pertinent
Allergies / Home Medications
Allergies reflects when Allergies were last updated in [facility].
Home Medications with original date entered in [facility]
Allergy/Medication List:
Allergies
Allergy/AdvReac Type Severity Reaction Status Date / Time
penicillin G Allergy Tongue Verified 10/30/23 09:38
Swelling
Penicillins Allergy Tongue Verified 10/30/23 09:38
Swelling
Home Medications
citalopram 20 mg tablet 20 mg PO DAILY Mental Health/Anxiety 03/09/21
lisinopril 20 mg tablet 40 mg PO DAILY Blood pressure 03/09/21
multivitamin with folic acid 400 mcg tablet (Tab-A-Charo) 1 tab PO DAILY Supplement 03/09/21
polyethylene glycol 3350 17 gram oral powder packet (HealthyLax) 17 g PO DAILY PRN constipation 05/11/23
atorvastatin 10 mg tablet 10 mg PO QPM High cholesterol #30 tabs 05/24/23
gabapentin 300 mg capsule 300 mg PO TID neuropathy #0 caps 05/24/23
ferrous sulfate 325 mg (65 mg iron) tablet 325 mg PO Q48H Supplement 10/21/23
lacosamide 100 mg tablet 150 mg (1.5 x 100 mg) PO BID Seizures #60 tabs 10/25/23
nifedipine 30 mg tablet,extended release 30 mg PO BID htn #60 tabs 10/25/23
labetalol 100 mg tablet 50 mg PO BID Blood Pressure 10/30/23
potassium chloride 20 mEq oral packet (Klor-Con) 20 meq PO DAILY Electrolyte Repletion 10/31/23
alprazolam 0.5 mg tablet 0.5 mg PO HSPRN PRN anxiety #5 tabs 11/05/23
nicotine 21 mg/24 hr daily transdermal patch 21 mg transdermal DAILY #0 ea 11/05/23
oxycodone-acetaminophen 10 mg-325 mg tablet 0.5 tab PO Q6H PRN pain #10 tabs 11/05/23
Review of Systems
-
Unable to obtain full review of systems at this time due to: Dementia
Physical Exam
Vital Signs
Vital Signs
Temp Pulse Resp BP Pulse Ox
100.7 F H 85 21 100/50 93
11/16/23 02:58 11/16/23 03:00 11/16/23 03:00 11/16/23 03:00 11/16/23 03:00
Physical Exam
General: Cachectic and Other (lethargic )
HEENT: NormoCephalic, Anicteric and Atraumatic
Respiratory: Clear; No Wheezes
Cardiac: S1/S2
Breast: Deferred by me
GI: Soft, Non Tender, Non Distended and Normal Bowel Sounds
Genito-urinary: Deferred by me
Musculoskeletal: No Cyanosis and No Edema
Skin: Other ( Chronic venous stasis changes in the lower extremities)
Neuro: Other ( Lethargic but arousable)
Laboratory Results
-
11/15/23 22:31
11/15/23 22:31
Laboratory Results
Lactic Acid Cancelled 11/16/23 00:36
Total Bilirubin 0.7 mg/dl (0.2-1.3) 11/15/23 22:31
AST 34 U/L (14-36) 11/15/23 22:31
ALT 24 U/L (0-35) 11/15/23 22:31
Alkaline Phosphatase 147 U/L (38-126) H 11/15/23 22:31
Data Reviewed
-
Lab Data: Labs Reviewed by me
Old Records: Reviewed
Impression/Plan
-
Data
WCC 13.7
Hgb 9.5 - baseline 9-10
Na 134
BUN 50 nl Cr eGFR 56
Alb 3
Unremarkable UA
NEG Covid
NEG Flu A & B
BCx sent
Unremarkable HCT
Pending final CXR report
Last hospitalist admission: 10/30/23- 11/05/23
DX: AUGUSTINE , delirium
ASSESSMENT & PLAN
Lethargic / hypoactive encephalopathy suspect acute infective process
Fever with leucocytosis , associated mild hypotension: SIRS pictur but unclear origin
Potential source: unstageable sacral wound with some surrounding erythema and foul odor
Unremarkable UA
HX Chronic Ambulatory Dysfunction/L5 Spinal Fracture.
Underlying Dementia with behavioral Disturbance
- Precaution : NPO for Aspiration and fall precaution
- BCx sent
- f/u final CXR report
- check PCT for sepsis
- IV Vanco and Zosyn instead of Cefepine
- LR IVF
- Trend T and WCC
- Wd care consult for unstageable sacral wd
- ID consult
HX Seizure
- Held Vimpat due to NPO
- Neuro consult for anti Sz Meds during NPO
Hypotensive
Primary HTN
- Held Labetalol and Procardia for hypotension
- held Lisinopril
Benzo Dependence
- Alprazolam PRN- hold if excessive sedation
Dementia with Behavioral Disturbance
- held Risperidone due to lethargy
Nicotine Dependence
DVT Px: LMWH
Code: Full
IMU
[2023-11-16 06:18] LABS: Procalcitonin 0.69 ng/ml (0.0-0.25)
--- NOTE | 2023-11-16 09:15 | W.PN.HOSP.TC ---
Today's Communication/Plan
-
transfer to med surg
follow cultures
PT/OT/speech
cont abx
Assessment / Plan
Assessment / Plan
pt is an 78 year old female
Sepsis (POA by criteria) due to Lethargic/hypoactive encephalopathy suspect acute infective process--possible infected sacral wound, UTI, aspiration--cont vanco/aztreonam for now--transfer to med/surg--cont IVF--follow cultures--agree with wound
care consult
HX Chronic Ambulatory Dysfunction/L5 Spinal Fracture--PT/OT as able
Underlying Dementia with behavioral Disturbance --calm currently--not requiring restraints--cont meds as able--speech eval--- held Risperidone due to lethargy restart as able
HX Seizure - Held Vimpat due to NPO- Neuro consult
Essential HTN- Held Lisinopril, Labetalol and Procardia for soft BP--restart as able
Benzo Dependence--Alprazolam PRN- hold if excessive sedation
Nicotine Dependence
DVT Px: LMWH
Code: Full
Anticipated Discharge: > 48 hours
Subjective/Interval History
-
Date of Service: November 16, 2023
pt says she is just 'dandy' when asked how she is feeling
Objective Data
-
Labs:
Laboratory Results
11/15/23
22:31
WBC 13.7 H
Hgb 9.5 L
Hct 30.0 L
Plt Count 209
Sodium 134 L
Potassium 4.3
Chloride 107
Carbon Dioxide 23
BUN 50 H
Creatinine 1.0
Glucose 102 H
Calcium 8.9
Total Bilirubin 0.7
AST 34
ALT 24
Alkaline Phosphatase 147 H
Vital Signs:
max temp for 24 hours
03/31/24
02:58
Temp 100.7 F H
Vital Signs
Temp Pulse Resp BP Pulse Ox
100.7 F H 89 18 116/53 95
11/16/23 02:58 11/16/23 09:00 11/16/23 09:00 11/16/23 09:00 11/16/23 07:02
Review of Systems
-
Unable to obtain full review of systems at this time due to: Dementia
Physical Exam
-
General: Appears Chronically Ill and Cachectic
HEENT: Normocephalic and Atraumatic; Negative Oxygen
Respiratory: Clear to Auscultation; Negative Wheezes or Rhonchi
Cardiac: Regular Rhythm and S1/S2; Negative Murmur
GI: Soft, Nontender, Nondistended and Normal Bowel Sounds
Musculoskeletal: No Clubbing, No Cyanosis and No Edema
Skin: Warm
Neuro: Awake
Psych: Calm
--- NOTE | 2023-11-16 09:42 | PHA.VAN.IN ---
Assessment
- Assessment
Renal Function: Appears elevated from baseline
Maximum Temperature: 100.7
Minimum Temperature: 97.7
Concomitant Antimicrobials: Aztreonam
- Previous Dosing Experience
Previous Regimen: Vanc 750mg IV q12H
Date of Regimen: 04/23/23
Provided Trough of: 12.9 (calculated)
Provided AUC of: 463 (calculated)
Patient's SCR is: Elevated compared to previous dosing experience
Patient's weight is: Decreased compared to previous dosing experience
Plan
- Plan
Initial / Loading Dose: Vanc 1500mg given 11/15 at 0355
Maintenance Regimen: Dose by level
Monitoring: Random level 11/16 AM
Pharmacokinetics Vancomycin I
- -
Patient Age: 78
Patient Sex: Female
Vancomycin Day #: 1
Indication: Skin And Soft Tissue
Requesting Provider: Tree
Pertinent Antimicrobial Allergies:
Penicillin = tongue swelling
Height / Weight:
Height 5 ft 2 in
Actual Weight 64.9 kg
IBW in k.1
Adjusted BW in k
Pertinent Past Medical History: AUGUSTINE; 10/29 to 11/08 admit [facility]INE suspected to be pre-renal. Improved with IVs
- Vital Signs / Lab Results
Temp Pulse Resp BP Pulse Ox
100.7 F H 89 18 116/53 95
11/16/23 02:58 11/16/23 09:00 11/16/23 09:00 11/16/23 09:00 11/16/23 07:02
Lab Results - Hematology
11/15/23
22:
WBC 13.7 H
Lab Results - Chemistry
11/15/23
22:31
BUN 50 H
Creatinine 1.0
Albumin 3.0 L
11/15/23 11/16/23
00:36
Lactic Acid 1.0 Cancelled
Lab Results - Urine
11/16/23
00:49
Urine Nitrite (Reflex) Negative
Leukocyte Esterase Rfl Trace A
Urine WBC (Reflex) 3-5
Ur Squamous Epith Cells 3-5
Urine Bacteria (Reflex) Moderate A
Microbiology Results
11/15/23 22:31 Influenza Types A & B (ELEUTERIO) - Final
Nasal Swab Negative for Influenza A & B, NAAT
Negative results must be combined with clinical observations
and patient history.
Nucleic Acid Amplification test (NAAT)performed on the
[employer] platform.
[2023-11-16] MEDS: STERILE WATER FOR INJECTION 10 ML IV ×2 (09:43→15:55)
[2023-11-16] MEDS: AZACTAM 1000 MG IV (09:43)
[2023-11-16] MEDS: LR 1000 IV ×2 (09:44→19:07)
[2023-11-16] MEDS: VIMPAT 150 MG IV ×2 (11:42→23:23)
--- NOTE | 2023-11-16 11:46 | CON.NEURO4 ---
Consultation - Neurology 4
-
CONSULTING PHYSICIAN: Laila Ortiz
REFERRING PHYSICIAN: Hospitalist
DICTATED BY: Laila Ortiz
DATE/TIME OF REQUEST: 11/16/23
DATE/TIME OF CONSULTATION: 11/16/23
Reason for Consultation: Epilepsy medications
History of Present Illness:
Patient is an 78-year-old woman with a past medical history of vascular dementia, epilepsy, severe spinal stenosis, hypertension presented to hospital with confusion and fever. Was admitted with treatment for sepsis suspected due to sacral wound
infection, negative urinalysis.
Patient has had multiple recent hospitalizations including 1 in which she was seen by neurology and diagnosed with vascular dementia as well as epilepsy and started on lacosamide 150 mg twice daily. Patient currently n.p.o. neurology asked for
assistance with antiseizure medications in this context.
Patient is encephalopathic not able to offer any reliable or contributory history, denies any pain at this time.
Past Medical History: Epilepsy, vascular dementia, essential tremor, severe spinal stenosis, COPD, HTN, HLD, right breast cancer, depression, anxiety, colon polyps, prediabetes, diverticulosis, AAA, chronic mesenteric ischemia, , ambulatory
dysfunction/wheelchair bound
Surgical History: Cholecystectomy, umbilical hernia repair, EVAR
Family History: Reviewed and noncontributory.
Social History: half-way resident, no alcohol and illicit drug use.
Allergies: Penicillin.
Home Medications:
Review of Symptoms:
Unable to obtain due to encephalopathy
Physical Exam:
Elderly woman appears chronically ill in mild distress no signs of head or neck trauma, eyes are clear, oropharynx is dry, neck has no meningismus no masses, mildly rigid neck,, heart rate regular, breathing unlabored, abdomen soft nontender, no
lower extremity edema or rashes, decreased muscle bulk throughout
Neurologic Examination:
Patient is awake and alert she is confused and asks repeated questions such as are you leaving? She will count to 10 and say her name as well as date of and obey simple commands intermittently.
Cranial nerves shows dysarthria, resting gaze is midline extraocular's are full, face is grossly symmetric
Increased tone in the arms and legs bilaterally consistent with spasticity versus paratonia, no motor deficits 4/5 shoulder abduction arm flexion hip flexion bilaterally
Intact noxious stimulation throughout
Unobtainable reflexes throughout
No ataxia and spontaneous arm and leg movements
Unable to examine gait
Neuro Imaging: CT head non contrast severe ischemic microvascular disease, no acute infarcts, chronic left thalamic infarct
Impressions
1. Epilepsy, controlled, without status epilepticus. This is most likely secondary to underlying vascular dementia
2. Vascular dementia based on cognitive/neurologic examination as well as severe white matter ischemic changes on previous brain imaging
3. Toxic metabolic encephalopathy due to sepsis on top of baseline vascular dementia
Recommendations:
1. Switch lacosamide 150 mg every 12 hours IV, eventually when/if able to take PO would switch back to 150 mg PO Lacosamide
2. Acceptable to hold gabapentin
3. Acceptable to hold her low-dose 0.5 mg alprazolam taken at night for anxiety
4. Minimize sedating medications
5. Treating sepsis follow cultures and infectious workup
6. Aspiration precautions
7. Follow clinically for seizures
Will follow peripherally/as needed call with questions and concerns
--- NOTE | 2023-11-16 12:46 | PTCARENOTE ---
Patient admitted to [facility] from ED. Patient is from [facility] ,unable to answer most questions due to hx of vascular dementia. Some questions answered from information in chart. Patient is bedbound. Patient is NPO per orders. Patient presents with
several wounds: 2 to right and left buttocks both stage 3 pressure ulcers and abrasion to left hip with skin breakdown. All wounds cleansed with NSS and covered. Wound care consult ordered. Q2 turns ordered. Vital signs stable on admission.
Patient's right arm and hand contracted. Lactated Ringers running at 100 ml/hr per order.
--- NOTE | 2023-11-16 14:44 | CON.ID ---
Consultation
-
Date/Time Consultation Requested: 11/16/2023 08:32
Date/Time Consultation Performed: 11/16/2023 1440
Requesting Provider: Dr. Leavitt
Performing Provider: Dr. Camargo
Reason for Consultation: Encephalopathy
Chief Complaint / Past History
History of Present Illness
Salina Patel is an 78-year-old female being evaluated at the request of Dr. Leavitt in regards to encephalopathy. History is obtained from chart review alone as the patient cannot provide any meaningful history for me given underlying dementia. She has
had multiple admissions to [facility] over the past year or so, and most recently was an inpatient from 10/29 through 11/04, during which time she was treated for acute delirium from AUGUSTINE. She was transferred back to her rehab facility, but
presents back early this a.m. via EMS secondary to reported new change in mental status along with fever. Although with underlying dementia, she is reportedly able to speak and make her needs known, but over the past 2 days she reportedly has had
increased lethargy and has not been talking as much.
Workup in the emergency room revealed leukocytosis and concern for an infectious process and Infectious Diseases has been asked to comment upon further antimicrobial therapy. She has been started on empiric antibiotics (aztreonam and vancomycin).
Past History
Additional Past Medical History:
HTN
Dyslipidemia
Dementia
GERD
Anemia
Additional Past Surgical History:
Cholecystectomy
AAA repair
L5 spinal fracture
Allergy History:
penicillin G Allergy (Verified 10/30/23 09:38)
Tongue Swelling
Penicillins Allergy (Verified 10/30/23 09:38)
Tongue Swelling
A review of prior records indicate that the patient is tolerated cefazolin and Keflex on prior admissions.
Medications Reviewed: Yes
Current Antibiotics:
Aztreonam
Vancomycin
Social History
Tobacco: Smoker
Alcohol: None
Drug: None
Employment: Retired
Family History
Family History: Not Pertinent
Review of Systems
Vital Signs
Temp Pulse Resp BP Pulse Ox
99.1 F 100 18 144/75 96
11/16/23 12:29 11/16/23 12:29 11/16/23 12:29 11/16/23 12:29 11/16/23 12:29
Physical Exam
Physical Exam
Constitutional: Chronically Ill, Non-toxic, Cachetic and Other (Extremely frail in appearance)
Head: Normocephalic
Eyes: Pupils Equal, Pupils Round, No Conjunctival Hemorrhage and Sclera Anicteric
Pharynx: Other (Dry oral mucosa.)
Lymph Nodes: Negative Lymphadenopathy
Cardiovascular: Regular Rate and S1/S2; Negative S3/S4
Pulmonary: Coarse and Non Labored
Gastrointestinal: Soft, Non Tender, Non Distended and Normal Bowel Sounds
Extremities: Venous Insufficiency; Negative Edema or Cyanosis
Wound: Other (Unstageable sacral wound with dry overlying eschar. Periwound area with significant erythema.)
Neurological: Awake and Other (Minimally verbal.)
Psychological: Calm
Lab / Diagnostic Study Results
11/15/23 22:31
11/15/23 22:31
Abs Immat Gran (auto) 0.2 10^3/uL (0-0.05) H 11/15/23 22:31
Absolute Neuts (auto) 12.3 10^3/uL (1.4-6.5) H 11/15/23 22:31
Absolute Lymphs (auto) 0.6 10^3/uL (1.2-3.4) L 11/15/23 22:31
Absolute Monos (auto) 0.6 10^3/uL (0.1-0.6) 11/15/23 22:31
Absolute Basos (auto) 0.1 10^3/uL (0-0.2) 11/15/23 22:31
Immature Gran % 1.2 % (0-0.5) H 11/15/23 22:31
Neutrophils % 89.7 % (42.2-75.2) H 11/15/23 22:31
Lymphocytes % 4.3 % (20.5-51.1) L 11/15/23 22:31
Monocytes % 4.3 % (1.7-9.3) 11/15/23 22:31
Eosinophils % 0.1 % (0-6) 11/15/23 22:31
Basophils % 0.4 % (0-2) 11/15/23 22:31
Lactic Acid Cancelled 11/16/23 00:36
Procalcitonin 0.69 ng/ml (0.0-0.25) H 11/16/23 05:42
Ur Squamous Epith Cells 3-5 /LPF (Few) 11/16/23 00:49
Microbiology Results
Micro:
11/16/23 13:11 MRSA Screen - Pending
Nose
11/15/23 22:36 Blood Culture - Pending
Blood/Venous
11/15/23 22:31 Blood Culture - Pending
Blood/Venous
11/16/23 00:49 Urine Culture - Pending
Urine
11/15/23 22:31 Influenza Types A & B (ELEUTERIO) - Final
Nasal Swab Negative for Influenza A & B, NAAT
Negative results must be combined with clinical observations
and patient history.
Nucleic Acid Amplification test (NAAT)performed on the
[employer] platform.
Imaging:
11/16/2023 CXR (portable): No focal interstitial airspace opacity noted. Heart size is top normal. No significant vascular congestion seen. Please see full dictation for additional detail. Film personally viewed.
Assessment / Plan
Leukocytosis
Encephalopathy; suspect TME
Unstageable sacral wound
Reported PCN allergy
- Has tolerated cephalosporins in the past without issue
HTN
Dyslipidemia
Dementia
GERD
Recommendations:
Transition aztreonam to cefepime 2 g IV every 12 hours.
Continue vancomycin.
May consider Gen Surg evaluation of sacral decubiti to determine whether debridement may be warranted.
Follow pending cultures.
Monitor vanco levels.
Follow WBC / temp curve.
Aspiration precautions.
[2023-11-16] MEDS: MAXIPIME 2000 MG IV (15:55)
--- NOTE | 2023-11-16 16:56 | PTOTSP ---
SPEECH THERAPY SWALLOW EVALUATION:
Patient presents with clinical signs of oropharyngeal dysphagia, likely chronic related to dementia and currently exacerbated by sepsis, epilepsy, TME, and deconditioning. Patient with elevated WBC. Signs of aspiration with thin liquids at bedside.
Patient remains at high risk for aspiration and related complications. Recommend NPO except for necessary medications crushed in puree with 1:1 assistance when upright and alert. Temporary alternate means for all nutrition/hydration. Speech therapy
to follow, re-assess patient in 24 hours, determine readiness for additional p.o. trials and/or indication for instrumental assessment of swallow function, and provide diagnostic swallow therapy as appropriate.
RECOMMEND:
1) NPO except for necessary medications crushed in puree with 1:1 assistance when upright and alert
2) Temporary alternate means for all nutrition/hydration
3) Speech therapy to follow, re-assess patient in 24 hours, determine readiness for additional p.o. trials and/or indication for instrumental assessment of swallow function, and provide diagnostic swallow therapy as appropriate
[2023-11-16] MEDS: LOVENOX 40 MG SC (17:03)
[2023-11-17] VITALS (8 sets, daily range): BP systolic 117–177; BP diastolic 52–90; PULSE 105–107; O2SAT 94–96; BMI 26.2
[2023-11-17] MEDS: STERILE WATER FOR INJECTION 10 ML IV ×2 (03:10→18:04)
[2023-11-17] MEDS: MAXIPIME 2000 MG IV ×2 (03:10→18:04)
[2023-11-17] MEDS: LR 1000 IV ×3 (04:13→21:02)
[2023-11-17] MEDS: DESENEX/MITRAZOL/ZEASORB 1 APPLIC TOPICAL ×2 (05:10→21:04)
[2023-11-17 06:53] LABS: % Basophils 0.2 % (0-2); % Immature Granulocytes 0.6 % (0-0.5); % Lymphocytes 3.3 % (20.5-51.1); % Neutrophils 92.9 % (42.2-75.2); Absolute Immature Granulocytes 0.1 10^3/uL (0-0.05); Absolute Lymphocytes 0.5 10^3/uL (1.2-3.4); Absolute Monocytes 0.4 10^3/uL (0.1-0.6); Absolute Neutrophils 13.4 10^3/uL (1.4-6.5); Hematocrit 24.2 % (37.0-47.0); Mean Corp Hgb Conc. 33.1 g/dL (33.0-37.0); Mean Corpuscular Hgb 25.7 pg (27.0-31.0); Mean Corpuscular Volume 77.8 fL (81.0-99.0); Nucleated Red Blood Cells % 0 %; Platelet Count 178 10^3/uL (130-400); Red Blood Cell Count 3.11 10^6/uL (4.20-5.40); Red Cell Dist. Width 18.7 % (11.5-14.5); White Blood Cell Count 14.4 10^3/uL (4.8-10.8)
[2023-11-17 06:59] LABS: Ammonia < 9 umol/L (9-30)
[2023-11-17 07:00] LABS: Lactic Acid 3.9 mmol/L (0.7-2.0)
[2023-11-17 07:35] LABS: Blood Urea Nitrogen 38 mg/dl (7-17); Calcium 8.4 mg/dl (8.4-10.2); Carbon Dioxide 17 mmol/L (22-30); Chloride 113 mmol/L (98-107); Estimated Creatinine Clearance 59 ml/min; Glucose 87 mg/dl (70-99); Magnesium 1.4 mg/dl (1.6-2.3); Potassium 3.7 mmol/L (3.5-5.1); Sodium 139 mmol/L (135-145); Vancomycin Random 7.9 ug/ml; eGFR > 60.00
--- NOTE | 2023-11-17 08:07 | PHA.VAN.FU ---
Vancomycin Assessment / Plan
- Assessment
Renal Function: SCR Decreasing
WBC's are: Trending Up
In the past 24 hrs, patient has been: Febrile
Concomitant Antimicrobials: Cefepime
- Assessment - Therapeutic Drug Monitoring
Random Level: 7.9
- Dosing Plan
Dosing by Level: Re-dose today (1000mg. If SCr continues to be stable and at baseline, will change to scheduled dosing)
- Monitoring Plan
Random Level: 11/18/23 @0600
- Follow Up
Pharmacy will continue to follow.
Vancomycin Follow UP
- -
Patient Age: 78
Patient Sex: Female
Vancomycin Day #: 2
Indication: Skin And Soft Tissue
Requesting Provider: Ilir Page
Pertinent Antimicrobial Allergies:
Penicillin = tongue swelling
Height / Weight:
Height 5 ft 2 in
Actual Weight 64.9 kg
IBW in k.1
Adjusted BW in k
Pertinent Past Medical History: AUGUSTINE; 10/29 to 11/08 admit AUGUSTINE suspected to be pre-renal. Improved with IVs
- Vital Signs / Lab Results
Temp Pulse Resp BP Pulse Ox
98.8 F 127 20 143/73 95
11/17/23 03:46 11/17/23 03:46 11/17/23 03:46 11/17/23 03:46 11/17/23 03:46
Lab Results - Hematology
11/15/23 11/17/23
22:31 06:37
WBC 13.7 H 14.4 H
Lab Results - Chemistry
11/15/23 11/17/23
22:31 06:37
BUN 50 H 38 H
Creatinine 1.0 0.6
Estimated Creat Clear 59
Albumin 3.0 L
11/15/23 11/16/23 11/17/23
22:31 00:36 06:37
Lactic Acid 1.0 Cancelled 3.9 H
Microbiology Results
11/15/23 22:36 Blood Culture - Preliminary
Blood/Venous No Growth in 24 hours- Final report to follow
11/15/23 22:31 Blood Culture - Preliminary
Blood/Venous No Growth in 24 hours- Final report to follow
11/15/23 22:31 Influenza Types A & B (ELEUTERIO) - Final
Nasal Swab Negative for Influenza A & B, NAAT
Negative results must be combined with clinical observations
and patient history.
Nucleic Acid Amplification test (NAAT)performed on the
[employer] platform.
Therapeutic Drug Monitoring
Random Vancomycin 7.9 ug/ml 11/17/23 06:37
--- NOTE | 2023-11-17 10:11 | W.PN.HOSP.TC ---
Addendum entered and electronically signed by Arvin Black MD 11/17/23 13:45:
Hypomagnesemia
replace
Lactic acidosis
Original Note:
Today's Communication/Plan
-
..
Assessment / Plan
Assessment / Plan
Physical Exam
General: Cachectic and Other (lethargic )
HEENT: NormoCephalic, Anicteric and Atraumatic
Respiratory: Clear; No Wheezes
Cardiac: S1/S2
GI: Soft, Non Tender, Non Distended and Normal Bowel Sounds
Genito-urinary: No hematuria
Musculoskeletal: No Cyanosis and No Edema
Skin: Other ( Chronic venous stasis changes in the lower extremities)
Neuro: Other ( Lethargic but arousable)
pt is an 78 year old female
Sepsis (POA by criteria) due to Lethargic/hypoactive encephalopathy suspect acute infective process--possible infected sacral wound, UTI, aspiration--cont vanco/cefepime
Blood culture is no growth so far
Urine culture is pending
c/w wound care
Low grade fever
c/w IVF
Negative COVID
Chest x ray No focal interstitial or airspace opacity to indicate pneumonia
Add bladder scan protocol
Normal liver enzymes
Appreciate ID help
# Toxic metabolic encephalopathy on underlying advanced dementia
Scan of the head showed Extensive diffuse bilateral patchy and confluent periventricular and subcortical white matter diminished attenuation. Similar to prior examination. Most consistent with advanced chronic microvascular white matter ischemic
disease. There are a few small stable chronic lacunar infarcts with small foci of CSF attenuation superimposed at the peripheral margin of the basal ganglia and/or external capsule. Similar to prior examination. Stable chronic lacunar infarct
involving the left thalamus. No evidence to suggest acute large vascular territory transcortical infarct at this time.
# Hyponatremia, c/w IVF
# HX Chronic Ambulatory Dysfunction/L5 Spinal Fracture--PT/OT as able
#Underlying Dementia with behavioral Disturbance --calm currently--not requiring restraints--cont meds as able--speech eval--- held Risperidone due to lethargy restart as able
#HX Seizure - Held Vimpat due to NPO-
c/w IV Vimpat
Appreciate neurology help
#Essential HTN- Held Lisinopril, Labetalol and Procardia for soft BP--restart as able
#Benzo Dependence--Alprazolam PRN-will resume low-dose Ativan at night to avoid withdrawal
#Nicotine Dependence
DVT Px: LMWH
Code: Full
Total time spent to see the patient, examine the patient on the floor, review data and lab results, discuss treatment plan with patient, nursing staff around 55 minutes.
Anticipated Discharge: > 48 hours
Subjective/Interval History
-
Date of Service: November 17, 2023
She did not answer questions or follow commands.
Objective Data
-
Labs:
Laboratory Results
11/17/23
06:37
WBC 14.4 H
Hgb 8.0 L
Hct 24.2 L
Plt Count 178
Sodium 139
Potassium 3.7
Chloride 113 H
Carbon Dioxide 17 L
BUN 38 H
Creatinine 0.6
Glucose 87
Calcium 8.4
Vital Signs:
Vital Signs
Temp Pulse Resp BP Pulse Ox
99.9 F 104 18 146/73 95
11/17/23 07:29 11/17/23 07:29 11/17/23 07:29 11/17/23 07:29 11/17/23 07:29
I&O
11/16/23 11/17/23 11/18/23
06:59 06:59 06:59
Intake Total 1200 / 1200
Output Total 2200 / 2200
Balance -1000 / -1000
[2023-11-17] MEDS: VANCOCIN 200 IV (10:24)
[2023-11-17] MEDS: VIMPAT 150 MG IV ×2 (10:26→22:23)
[2023-11-17] MEDS: FLUSH (NSS) 2 FLUSH IV (10:28)
[2023-11-17] MEDS: NSS (PRESERVATIVE FREE) 0.125 ML IV (10:51)
[2023-11-17] MEDS: ATIVAN 0.25 MG IV (10:51)
--- NOTE | 2023-11-17 13:28 | W.PN.ID1 ---
Date of Service
Date of Service: November 17, 2023
Today's Communication
Continue antibiotics
Assessment / Plan
Leukocytosis
Encephalopathy; suspect TME
Unstageable sacral wound
Reported PCN allergy
- Has tolerated cephalosporins in the past without issue
HTN
Dyslipidemia
Dementia
GERD
Recommendations:
Continue cefepime 2 g IV every 12 hours.
Continue vancomycin.
--> May consider General Surgery evaluation of sacral decubiti to determine whether debridement may be warranted.
Follow pending cultures.
Monitor vanco levels.
Follow WBC / temp curve.
Aspiration precautions.
����������������������������������������������������������
Chief Complaint
-: Leukocytosis
Subjective / Review of Systems
Review of Systems: No Fever
Vital Signs / Physical Exam
Vital Signs
Vital Signs
Temp Pulse Resp BP Pulse Ox
99.3 F 95 18 117/52 95
11/17/23 11:55 11/17/23 11:55 11/17/23 11:55 11/17/23 11:55 11/17/23 11:55
Physical Exam
Constitutional: No Acute Distress, Comfortable, Chronically Ill, Non-toxic and Cachetic
Eyes: Sclera Anicteric
Cardiovascular: S1/S2; Negative S3/S4
Pulmonary: Clear and Non Labored
Gastrointestinal: Soft, Non Tender and Non Distended
Wound: Other (Steroid eyedrops.)
Neurological: Awake; Negative Oriented
Psychological: Calm
Objective Data
Lab Data
Lab Results
11/17/23 06:37
11/17/23 06:37
Estimated Creat Clear 59 ml/min 11/17/23 06:37
Lactic Acid 3.9 mmol/L (0.7-2.0) H 11/17/23 06:37
Total Bilirubin 0.7 mg/dl (0.2-1.3) 11/15/23 22:31
AST 34 U/L (14-36) 11/15/23 22:31
ALT 24 U/L (0-35) 11/15/23 22:31
Alkaline Phosphatase 147 U/L (38-126) H 11/15/23 22:31
Most recent labs reviewed.
Micro Results:
11/15/23 22:36 Blood Culture - Preliminary
Blood/Venous No Growth in 24 hours- Final report to follow
11/15/23 22:31 Blood Culture - Preliminary
Blood/Venous No Growth in 24 hours- Final report to follow
11/16/23 13:11 MRSA Screen - Pending
Nose
11/16/23 00:49 Urine Culture - Pending
Urine
11/15/23 22:31 Influenza Types A & B (ELEUTERIO) - Final
Nasal Swab Negative for Influenza A & B, NAAT
Negative results must be combined with clinical observations
and patient history.
Nucleic Acid Amplification test (NAAT)performed on the
[employer] platform.
Imaging:
11/16/2023 CXR (portable): No focal interstitial airspace opacity noted. Heart size is top normal. No significant vascular congestion seen. Please see full dictation for additional detail. Film personally viewed.
[2023-11-17] MEDS: MAGNESIUM SULFATE 100 IV (14:34)
--- NOTE | 2023-11-17 15:26 | WOUNDNOTE ---
SACRUM AND BUTTOCKS WITH PHOTO FLASH
--- NOTE | 2023-11-17 15:28 | WOUNDNOTE ---
WON RN note: Patient admitted with acute UTI and encephalopathy.
See H&P for complete history. [facility]. Has Lived at home with , caregivers and [facility].
PMH: Dementia, seizures, smoker, HTN, abdominal aortic aneurysm, hyperlipidemia, spinal stenosis, gait dysfunction
Wound Location and type/assessment: Patient known to service, last seen 11/03/23 for evolving sacral/buttocks DTI. With assist from PCT Belkys turned to sides, patient is arousable but not able to turn self at this time. Now sacrum with dark bustillo
center and hawkins surrounding, suspect stage 3 or 4 PI underneath. Surrounding skin is red and raw, L buttock with stage 3 PI and open partial thickness wounds in skin folds. Patient incontinent of stool and urine. Heels intact, L heel red but
blanchable.
Appetite: To be determined.
Pressure redistribution devices in place: Air overlay on bed in use, easy to turn. Strict turning schedule otherwise recommend [facility] [place] air bed. Repositioned patient to R semi side lying position. Pillow placed under calves.
Plan: To sacrum/buttocks applied adaptic, alginate and abd pad with paper tape. Recommended surgical consult to Dr. Black if deems appropriate, surgical consult placed by Dr. Velasquez applied to heels.
Case Management: Will need air mattress at home and ROHO cushion for w/c if doesn't already have.
Will confirm orders with hospitalist and updated nurse. Updated care plan and will follow as needed.
--- NOTE | 2023-11-17 15:37 | CM ---
Sleepy confused patient who lives her Richardson in a 1 story home with 2 step to enter and bath/ bed room on first floor. She is assisted in all activities of daily living.Spoke with Richardson he said he does not want her to go to SNF.
He would like her home with VN . [facility] aware . She has [facility] critical care specialist Friday and for 4 hours . He is to increase to 3 days.Suggested to to call Alcides DORANTES to see if she qualifies for waiver program for
increase critical care specialist hours.
[facility] hx /[facility] hx
Pharmacy [facility]
PCP Dr Reeder
PLAN Home with [facility]
--- NOTE | 2023-11-17 15:56 | CON.GS ---
Addendum entered and electronically signed by Shawn Boswell MD 11/17/23 17:53:
I saw and examined the patient independently.
The [employer]'s note was reviewed and I agree with the note, assessment and plan except where noted below.
Comment: This is an 78-year-old female for which general surgery was consulted for unstageable sacral ulcer thought to be the source of her sepsis. On exam she does have a roughly 2 cm unstageable wound in the center of her sacrum with fluctuance
and some discharge. There is some surrounding erythema and macerated skin which otherwise appears healthy and viable.
Given its location and patient's difficulty with bedside exam, recommend operative debridement in the OR.
N.p.o. at midnight, IV fluids, IV antibiotics per primary.
Patient tentatively added on for the OR tomorrow. As the patient is unable to consent for the procedure I did touch base with her son Jose Vyas who was agreeable to surgery however the family is currently in discussions for hospice care.
Patient's Richardson will be in to visit in the morning and will make the final decision then.
General surgery will continue to follow.
Original Note:
Medical History
-
Chief Complaint: pressure ulcer
History of Present Illness:
This is an 78 yo female with significant dementia history presenting from [place] for delirium and fever. She was previously reportedly able to make needs known and speak, but has been mostly nonverbal with lethargy. She was admitted twice last month,
initially for seizures and then again for AUGUSTINE (pre-renal) and able to be discharged back to facility after treatment. On exam, she is making unintelligible sounds with moaning but cooperative with care. The sacrum is covered with various stages of
pressure wounds to the sacrum and buttocks in the center of which is an unstageable boggy area covered with eschar tissue. She was febrile yesterday with tmax of 101.3 but has been afebrile thus far today. She has had tachycardia but stable blood
pressures. There is leukocytosis present which is trending up since admission.
Past Medical History
Past Medical History: GERD, HTN, Hypercholesterolemia, Seizures and Other (Dementia)
Past Surgical History: Cardiac (AAA repair), Cholecystectomy, Gynecological (hysterectomy), Hernia Repair (umbilica) and Other (right lumpectomy)
Social History
Tobacco: Smoker (?recently stopped this month d/t condition)
Alcohol: None
Living: [facility]
Family History
Family History: Reviewed & Not Pertinent
Allergies / Home Medications
Allergy/AdvReac Type Severity Reaction Status Date / Time
penicillin G Allergy Tongue Verified 10/30/23 09:38
Swelling
Penicillins Allergy Tongue Verified 10/30/23 09:38
Swelling
�Medication �Instructions �Recorded �Confirmed �Type
citalopram 20 mg tablet 20 mg PO DAILY Mental 03/09/21 11/16/23 History
Health/Anxiety
lisinopril 20 mg tablet 10 mg PO DAILY Blood pressure 03/09/21 11/16/23 History
polyethylene glycol 3350 17 gram 17 g PO DAILY PRN constipation 05/11/23 11/16/23 History
oral powder packet (HealthyLax)
atorvastatin 10 mg tablet 10 mg PO QPM High cholesterol #30 05/24/23 11/16/23 Rx
tabs
gabapentin 300 mg capsule 300 mg PO TID neuropathy #0 caps 05/24/23 11/16/23 Rx
ferrous sulfate 325 mg (65 mg 325 mg PO Q48H Supplement 10/21/23 11/16/23 History
iron) tablet
lacosamide 100 mg tablet 150 mg (1.5 x 100 mg) PO BID 10/25/23 11/16/23 Rx
Seizures #60 tabs
nifedipine 30 mg tablet,extended 30 mg PO BID htn #60 tabs 10/25/23 11/16/23 Rx
release
labetalol 100 mg tablet 100 mg PO BID Blood Pressure 10/30/23 11/16/23 History
potassium chloride 20 mEq oral 20 meq PO DAILY Electrolyte 10/31/23 11/16/23 History
packet (Klor-Con) Repletion
alprazolam 0.5 mg tablet 0.5 mg PO HSPRN PRN anxiety #5 11/05/23 11/16/23 Rx
tabs
nicotine 21 mg/24 hr daily 21 mg transdermal DAILY #0 ea 11/05/23 11/16/23 Rx
transdermal patch
oxycodone-acetaminophen 10 mg-325 0.5 tab PO Q6H PRN pain #10 tabs 11/05/23 11/16/23 Rx
mg tablet
acetaminophen 325 mg tablet 650 mg PO Q4HPRN PRN mild pain 11/16/23 11/16/23 History
bisacodyl 10 mg rectal suppository 10 mg LA DAILY PRN Constipation 11/16/23 11/16/23 History
collagenase clostridium histo. 250 1 applic topical DAILY sacrum 11/16/23 11/16/23 History
unit/gram topical ointment (Santyl)
magnesium hydroxide 400 mg/5 mL 2,400 mg PO DAILYPRN PRN if no bm 11/16/23 11/16/23 History
oral suspension (Milk of Magnesia) in 96 hours
sodium phosphates 19 gram-7 118 ml LA DAILYPRN PRN constipation 11/16/23 11/16/23 History
gram/118 mL enema (Fleet Enema)
Review of Systems
-
Unable to obtain full review of systems at this time due to: Dementia
A 10 point review of systems was completed, and was negative except as per HPI.
Physical Exam
Vital Signs
Temp Pulse Resp BP Pulse Ox
99.3 F 95 18 117/52 95
11/17/23 11:55 11/17/23 11:55 11/17/23 11:55 11/17/23 11:55 11/17/23 11:55
11/16/23 11/17/23 11/18/23
06:59 06:59 06:59
Actual Weight 64.9 kg 64.9 kg
Lab Results
11/17/23 06:37
11/17/23 06:37
WBC 14.4 10^3/uL (4.8-10.8) H 11/17/23 06:37
Hgb 8.0 g/dL (12.0-16.0) L 11/17/23 06:37
Hct 24.2 % (37.0-47.0) L 11/17/23 06:37
Plt Count 178 10^3/uL (130-400) 11/17/23 06:37
Abs Immat Gran (auto) 0.1 10^3/uL (0-0.05) H 11/17/23 06:37
Neutrophils % 92.9 % (42.2-75.2) H 11/17/23 06:37
Physical Exam
General: No Apparent Distress
HEENT: Moist Mucous Membranes
Respiratory: Non Labored Respirations
GI: Soft and Non Tender
Skin: Warm and Other (Sacrum with various stages of pressure wounds with unstagable ulcer covered with eschar centrally. See picture in wound care portion of record)
Neuro: Awake and Other (moaning/unintelligible speech); Negative Oriented
Psych: Other (anxious with stimulation)
Data Reviewed
-
Labs: Labs Reviewed by me, Discussed with Physician, Discussed with Nurse and Discussed with Patient
Old Records: Reviewed
Assessment / Plan
-
Assessment:
78 yo female with dementia history presenting from [place] for delirium and fever. Seen in consult today for sacral wound. There are various stages of pressure wounds to the sacrum and buttocks in the center of which is an unstageable boggy area covered
with eschar tissue. She was febrile yesterday with tmax of 101.3 but has been afebrile thus far today. She has had tachycardia but stable blood pressures. There is leukocytosis present which is trending up since admission.
Plan:
Plan debridement in the OR if patient's family wishes to proceed
Currently NPO d/t mentation, would keep NPO after MN for OR in AM
IVF as per primary team
ABX as per ID
Wound care following with us
[2023-11-17] MEDS: LOVENOX 40 MG SC (18:04)
--- NOTE | 2023-11-17 20:10 | PTCARENOTE ---
Pt arrived from [facility], assumed care of Pt. Pt moaning, tremulous, does not follow commands. pox 98% on RA. NSR/St on tele monitor. Lactic acid 3.9 this morning, spoke to Michelle CRUZ, repeat lactic acid ordered x1 now. bed alarm in place.
ivf infusing.
[2023-11-17 21:02] LABS: Lactic Acid 0.8 mmol/L (0.7-2.0)
[2023-11-17] MEDS: ATIVAN 0.5 MG IV (21:02)
[2023-11-17] MEDS: NSS (PRESERVATIVE FREE) 0.25 ML IV (21:03)
--- NOTE | 2023-11-17 21:26 | PTCARENOTE ---
Pt was transfered to 331 with IV fluids as ordered,pt dentures & all belongings send with pt. . Report provided to RN assigned.
[2023-11-18] VITALS (13 sets, daily range): BP systolic 125–173; BP diastolic 61–107
[2023-11-18] MEDS: ATIVAN 0.25 MG IV ×2 (01:01→10:37)
[2023-11-18] MEDS: NSS (PRESERVATIVE FREE) 0.125 ML IV ×2 (01:02→10:37)
[2023-11-18] MEDS: STERILE WATER FOR INJECTION 10 ML IV ×2 (05:15→16:04)
[2023-11-18] MEDS: MAXIPIME 2000 MG IV ×2 (05:15→16:06)
[2023-11-18] MEDS: DILAUDID 0.25 MG IV ×2 (05:46→23:07)
--- NOTE | 2023-11-18 05:50 | PTCARENOTE ---
Pt resting, moaning with tremors and twitching. Pt changed and repositioned. Oral care given, Pt coughing thick/clear secretions continuously along with thick hawkins mucous, appears uncomfortable tolerating own secretions. pox 98% on RA. Michelle Osmanyhorn
INTEGRATION AIDE in to see Pt. Pt appears comfortable. no orders at this time.
--- NOTE | 2023-11-18 06:03 | W.PN.UPDATE ---
Update Note
Progress Note Update
pt appears in pain. moaning. small dose of dilaudid given. appear comfortable
[2023-11-18 06:24] LABS: Hematocrit 28.2 % (37.0-47.0); Hemoglobin 9.5 g/dL (12.0-16.0); Mean Corp Hgb Conc. 33.7 g/dL (33.0-37.0); Mean Corpuscular Volume 77.3 fL (81.0-99.0); Mean Platelet Volume 9.2 fL (7.4-10.4); Platelet Count 188 10^3/uL (130-400); Red Blood Cell Count 3.65 10^6/uL (4.20-5.40); Red Cell Dist. Width 18.5 % (11.5-14.5)
[2023-11-18] MEDS: LR 1000 IV ×2 (06:42→19:11)
[2023-11-18 06:51] LABS: ALT (SGPT) 15 U/L (0-35); AST (SGOT) 24 U/L (14-36); Albumin 2.7 g/dl (3.5-5.0); Alkaline Phosphatase 146 U/L (38-126); Blood Urea Nitrogen 36 mg/dl (7-17); Carbon Dioxide 23 mmol/L (22-30); Chloride 115 mmol/L (98-107); Estimated Creatinine Clearance 51 ml/min; Glucose 100 mg/dl (70-99); Potassium 2.8 mmol/L (3.5-5.1); Sodium 144 mmol/L (135-145); Total Bilirubin 0.9 mg/dl (0.2-1.3); Total Protein 5.4 g/dl (6.3-8.2); Vancomycin Random 11.5 ug/ml; eGFR > 60.00
--- NOTE | 2023-11-18 08:41 | W.PN.GS2 ---
Today's Communication / Plan
-
-- EUA and incision and debridement of a sacral decubitus ulcer
Assessment / Plan
-
Patient is an 78 yo F with multiple medical issues presenting with delirium and fever. Found to have a unstageable pressure ulcer.
Discussion with spouse and DPOA (Richardson). Uncertain on decision to proceed with Hospice. Discussion regarding operative evaluation and debridement of sacral decubitus ulcer. The procedure itself, as well as the risks, benefits, and alternatives
was discussed. We specifically discussed that this will in no way improve upon her other chronic medical conditions, and that she will likely continue with the same current functionality. We also discussed that current debridement is to treat
and infected tissue. This will leave her with a chronic wound that will require diligent wound care and offloading. We discussed that without operative debridement this wound will persist and her infection may worsen. would like to
proceed with operative debridement.
Plan for EUA and incision and debridement of a sacral decubitus ulcer. The procedure itself, as well as the risks, benefits, and alternatives also discussed. Specifically, we discussed the risks of bleeding, persistent infection, injury to
surrounding structures, potential need for future operations, and anesthetic complications. Typical postprocedural recovery was discussed. All questions answered.
-- EUA and incision and debridement of a sacral decubitus ulcer
-- NPO, IVF
-- Abx: Cefepime
Subjective Data
-
Date of Service: November 18, 2023
Moaning and discomfort. Indistinguishable sounds. Exam limited.
Objective Data
-
Intake and Output
11/17/23 11/18/23 11/19/23
06:59 06:59 06:59
Intake Total 1200 / 1200 1200 / 1200
Output Total 2200 / 2200
Balance -1000 / -1000 1200 / 1200
Intake:
Oral fluids 0 / 0
IV fluids (Total) 1200 / 1200 1200 / 1200
Output:
Urine, Voided 825 / 825
Straight cath output 1375 / 1375
Other:
How many times incontinent 1
SMALL amount urine
How many times incontinent 4
MODERATE amount urine
How many times incontinent 1 1
SATURATED amount urine
Vital Signs
Temp Pulse Resp BP Pulse Ox
98.9 F 86 20 173/85 95
11/18/23 08:11 11/18/23 08:11 11/18/23 08:11 11/18/23 08:11 11/18/23 08:11
Lab Results
11/18/23 06:00
11/18/23 06:00
Calcium 9.0 mg/dl (8.4-10.2) 11/18/23 06:00
Magnesium 1.4 mg/dl (1.6-2.3) L 11/17/23 06:37
Total Bilirubin 0.9 mg/dl (0.2-1.3) 11/18/23 06:00
AST 24 U/L (14-36) 11/18/23 06:00
ALT 15 U/L (0-35) 11/18/23 06:00
Alkaline Phosphatase 146 U/L (38-126) H 11/18/23 06:00
Total Protein 5.4 g/dl (6.3-8.2) L 11/18/23 06:00
Albumin 2.7 g/dl (3.5-5.0) L 11/18/23 06:00
Physical Exam
-
Gen: NAD
Rectal: 2-3 cm unstageable pressure ulcer overlying the sacrum, boggy, mild drainage, blanching erythema surrounding
[2023-11-18] MEDS: DESENEX/MITRAZOL/ZEASORB 1 APPLIC TOPICAL ×2 (08:44→20:52)
--- NOTE | 2023-11-18 09:15 | W.PN.HOSP.TC ---
Today's Communication/Plan
-
.
Assessment / Plan
Assessment / Plan
Physical Exam
General: Cachectic and Other (lethargic )
HEENT: NormoCephalic, Anicteric and Atraumatic
Respiratory: Clear; No Wheezes
Cardiac: S1/S2
GI: Soft, Non Tender, Non Distended and Normal Bowel Sounds
Genito-urinary: No hematuria
Musculoskeletal: No Cyanosis and No Edema
Skin: Other ( Chronic venous stasis changes in the lower extremities)
Neuro: seems less lethargic but anxious and some agitation noted.
pt is an 78 year old female
Sepsis (POA by criteria) due to Lethargic/hypoactive encephalopathy suspect acute infected sacral wound,
Urine culture no growth
No Signs of respiratory compromise to support aspiration
--cont vanco/cefepime. MRSA screen is positive
Blood culture is no growth so far
Urine culture is No growth
c/w wound care
c/w IVF
Negative COVID
Chest x ray No focal interstitial or airspace opacity to indicate pneumonia
Added bladder scan protocol
Normal liver enzymes
For sacral wound debridement today
Appreciate ID & surgery help
# hypokalemia, replace
# Toxic metabolic encephalopathy on underlying advanced dementia
Scan of the head showed Extensive diffuse bilateral patchy and confluent periventricular and subcortical white matter diminished attenuation. Similar to prior examination. Most consistent with advanced chronic microvascular white matter ischemic
disease. There are a few small stable chronic lacunar infarcts with small foci of CSF attenuation superimposed at the peripheral margin of the basal ganglia and/or external capsule. Similar to prior examination. Stable chronic lacunar infarct
involving the left thalamus. No evidence to suggest acute large vascular territory transcortical infarct at this time.
# Hyponatremia, c/w IVF
# HX Chronic Ambulatory Dysfunction/L5 Spinal Fracture--PT/OT as able
#Underlying Dementia with behavioral Disturbance --calm currently--not requiring restraints--cont meds as able--speech eval--- held Risperidone due to lethargy restart as able
#HX Seizure -
c/w IV Vimpat
Appreciate neurology help
#Essential HTN- Held Lisinopril, Labetalol and Procardia for soft BP--restart as able
#Benzo Dependence--Alprazolam
continue with low-dose Ativan
#Nicotine Dependence
DVT Px: LMWH
Code status. d/w Ronn at bed side. Explained the code and whether he wanted resuscitative measures. Explained that comfort measures will benefit the patient at this point with advanced dementia. He verbalized agreement to change code to
DO NOT RESUSCITATE
Total time spent to see the patient, examine the patient on the floor, review data and lab results, discuss treatment plan with patient, , nursing staff around 57 minutes.
Anticipated Discharge: > 48 hours
Subjective/Interval History
-
Date of Service: November 18, 2023
Some agitation noted
Objective Data
-
Labs:
Laboratory Results
11/18/23
06:00
WBC 14.0 H
Hgb 9.5 L
Hct 28.2 L
Plt Count 188
Sodium 144
Potassium 2.8 L
Chloride 115 H
Carbon Dioxide 23
BUN 36 H
Creatinine 0.7
Glucose 100 H
Calcium 9.0
Total Bilirubin 0.9
AST 24
ALT 15
Alkaline Phosphatase 146 H
Vital Signs:
Vital Signs
Temp Pulse Resp BP Pulse Ox
98.9 F 86 20 173/85 95
11/18/23 08:11 11/18/23 08:11 11/18/23 08:11 11/18/23 08:11 11/18/23 08:11
I&O
11/17/23 11/18/23 11/19/23
06:59 06:59 06:59
Intake Total 1200 / 1200 1200 / 1200
Output Total 2200 / 2200
Balance -1000 / -1000 1200 / 1200
--- NOTE | 2023-11-18 09:31 | PHA.VAN.FU ---
Vancomycin Assessment / Plan
- Assessment
Renal Function: Stable
WBC's are: Stable
In the past 24 hrs, patient has been: Afebrile
Concomitant Antimicrobials: cefepime
- Assessment - Therapeutic Drug Monitoring
Random Level: 11.5 - drawn ~19.5H after previous dose of 1000mg
- Dosing Plan
Dosing by Level: Re-dose today (Vanc 1000mg)
SCR stable, BUN elevated - will keep dose by level for now
Patient had accumulation with 1000mg yesterday - will re-dose again today and see if continues to accumulate or remains stable
- Monitoring Plan
Random Level: 11/18 06
- Follow Up
Pharmacy will continue to follow.
Vancomycin Follow UP
- -
Patient Age: 78
Patient Sex: Female
Vancomycin Day #: 3
Indication: Skin And Soft Tissue
Requesting Provider: [facility] / Dr. Camargo
Pertinent Antimicrobial Allergies:
Penicillin = tongue swelling
Height / Weight:
Height 5 ft 2 in
Actual Weight 64.9 kg
IBW in k.1
Adjusted BW in k
Pertinent Past Medical History: Ambulatory dysfunction
- Vital Signs / Lab Results
Temp Pulse Resp BP Pulse Ox
98.9 F 86 20 173/85 95
11/18/23 08:11 11/18/23 08:11 11/18/23 08:11 11/18/23 08:11 11/18/23 08:11
Lab Results - Hematology
11/15/23 11/17/23 11/18/23
22:31 06:37 06:00
WBC 13.7 H 14.4 H 14.0 H
Lab Results - Chemistry
11/15/23 11/17/23 11/18/23
22:31 06:37 06:00
BUN 50 H 38 H 36 H
Creatinine 1.0 0.6 0.7
Estimated Creat Clear 59 51
Albumin 3.0 L 2.7 L
11/15/23 11/16/23 11/17/23
22:31 00:36 06:37
Lactic Acid 1.0 Cancelled 3.9 H
11/17/23
20:43
Lactic Acid 0.8
Microbiology Results
11/15/23 22:36 Blood Culture - Preliminary
Blood/Venous No Growth in 48 hours- Final report to follow
11/15/23 22:31 Blood Culture - Preliminary
Blood/Venous No Growth in 48 hours- Final report to follow
11/16/23 13:11 MRSA Screen - Final
Nose Staph aureus MRSA
11/16/23 00:49 Urine Culture - Final
Urine
Therapeutic Drug Monitoring
Random Vancomycin 11.5 ug/ml 11/18/23 06:00
[2023-11-18] MEDS: KCL 270 MEQ IV (10:25)
[2023-11-18] MEDS: ATIVAN IV (10:27)
--- NOTE | 2023-11-18 11:10 | W.SUR.PREOP ---
Pre-Operative Surgical Note
-
I have examined this patient prior to the performance of the scheduled procedure.
The patient's condition is unchanged from the time of the current History and
Physical and the patient is able to undergo the scheduled procedure.
[2023-11-18] MEDS: VIMPAT 150 MG IV ×2 (11:45→22:20)
--- NOTE | 2023-11-18 13:14 | W.IMMPOSTOP ---
Addendum entered and electronically signed by Vik Portillo MD 11/18/23 13:28:
[facility]#[id number]
Original Note:
Surgical Immed Post Op Note
-
Primary Surgeon: Lindsey
Assisting Surgeon: None
Pre-op Diagnosis: Sacral decubitus ulcer
Post-op Diagnosis: Stage IV sacral decubitus ulcer
Procedure Performed: Excisional debridement of sacral decubitus ulcer in preparation for possible skin graft
Anesthesia Type: General LMA
Specimen / Cultures:
1. Wound tissue and swab culture of ulcer
Estimated Blood Loss: 3 cc
Complications: None
Operative Findings:
1. Stage IV sacral decubitus ulcer down to sacrum with thin layer of fascia remaining overlying the bone
2. Purulence evacuated, stringy infected/necrotic tissue excisional debridement with scissors
3. Wound measurements 5 x 2 x 3 cm
--- NOTE | 2023-11-18 14:59 | PTCARENOTE ---
1430- Pt returned from PACU. Pt lethargic. Respiration with ease and unlabored. Personal items and call light within reach. Bed alarm armed and audible. Pure wick reapplied.
--- NOTE | 2023-11-18 15:55 | PN.CDI ---
Addendum entered and electronically signed by Arvin Black MD 11/19/23 06:10:
severe protein calorie malnutrition of chronic illness
Original Note:
CDI
- -
CDI:
Physician Documentation Request
Admit Date: 11/16/23 04:27
Dear Doctor Wayne,
11/16 note states ' Per previous admission -pts weight previous admission was 165 lbs 05/24 reflective of 38 lb (23%) weight loss in 5 month, significant. Pt meets ASPEN and AND criteria for severe protein calorie malnutrition of chronic illness
with result from [facility]-rd observed pt with fat and muscle wasting- severe temporal wasting, protrusion of clavical, apparent ribs, orbital area sunken in, loss over interosseous.'
Progress note describe the patient as cachectic.
Based on the information, which of the following most accurately represents the patient's nutritional status?
Malnutrition (specify if mild, moderate or severe)
Cachexia without malnutrition
No nutritional deficiency
Other (please specify)
Twilight Criteria (ACP Hospitalist 2017)
2 or more criteria must be present for either
non severe or severe malnutrition
Note that the criteria differs related to the
presence of an acute or chronic illness
Acute Illness Chronic Illness
Energy Intake Non Severe: <75% for >7 days Non Severe: <75% for >1 month
Severe: <50% for >5 days Severe: <75% for >1 month
Weight Loss Non Severe: 1-2% over 1 week Non Severe: 5% over 1 month
5% over 1 month 7.5% over 3 months
7.5% over 3 months 10% over 6 months
1 year N/A 20% over 1 year
Severe: >2% over 1 week Severe: >5% over 1 month
>5% over 1 month >7.5% over 3 months
>7.5% over 3 months >10% over 6 months
1 year N/A >20% over 1 year
Body Fat Non Severe: Mild Decrease Non Severe: Mild Loss
Severe: Moderate Decrease Severe: Severe Loss
Muscle Mass Non Severe: Mild Decrease Non Severe: Mild Loss
Severe: Moderate Decrease Severe: Severe Loss
Fluid Accumulation Non Severe: Mild Accumulation Non Severe: Mild Accumulation
Severe: Moderate to severe Severe: Moderate to severe
accumulation accumulation
Reduced Donation Specialist Strength Non Severe: N/A Non Severe: N/A
Severe: Measurably reduced Severe: Measurably reduced
Additional criteria that can be used to Determine if Mild or Moderate Malnutrition (Merck Manual 2018)
Mild Moderate Severe
Albumin gm/dl <3.0 gm/dl <2.5 gm/dl <2.0 gm/dl
Pre Albumin mg/dl <15 gm/dl <10 mg/dl <5.0 mg/dl
BMI <18.5 <17 <16
Use of terms such as suspected, likely, concern for, or probable (associated with a specific diagnosis that is being evaluated, monitored, or treated as if it exists) are acceptable and can be coded in the inpatient setting, when documented at the
time of discharge.
Thank you,
Roseann Ray RN, BSN
CDI Specialist
tiger text
Please use your independent medical judgment in providing your response.
--- NOTE | 2023-11-18 16:00 | PN.CDI ---
Addendum entered and electronically signed by Arvin Black MD 11/19/23 06:11:
Severe sepsis POA including encephalopathy
Original Note:
CDI
- -
CDI:
Physician Documentation Request
Admit Date: 11/16/23 04:27
Dear Doctor Wayne,
Patient is admitted with sepsis suspected acute infected sacral wound.
Patients lactic acid was resulted as 3.9 on 11/16
Patient's notes also include a diagnosis of toxic metabolic encephalopathy
Please clarify which of the following most accurately describes the status of the patient's infection:
Sepsis only
- Systemic manifestations of infection, with 2 or more SIRS criteria which include:
- Fever >100.4 degrees F or hypothermia < 96.8 degrees F
- Leukocytosis - WBC > 12,000 or leukopenia - WBC < 4,000 or > 10% bands
- Tachycardia > 90 beats per minute
- Tachypnea - RR > 20 breaths per minute or PaCO2 , 32mmHg
Source: Merck Manual 2013
Severe Sepsis
- Sepsis with associated acute organ dysfunction, such as renal or respiratory failure
- Documentation should indicate the association between the sepsis and the organ dysfunction
Other
Use of terms such as suspected, likely, concern for, or probable (associated with a specific diagnosis that is being evaluated, monitored, or treated as if it exists) are acceptable and can be coded in the inpatient setting, when documented at the
time of discharge.
Thank you,
Roseann Ray RN, BSN
CDI Specialist
tiger text
Please use your independent medical judgment in providing your response.
--- NOTE | 2023-11-18 16:26 | PTOTSP ---
Patient s/p general anesthesia for OR today for excisional debridement of sacral decubitus ulcer. Per department protocol, new orders required to continue dysphagia re-evaluation/therapy when medically appropriate. Please place orders as
able/appropriate.
[2023-11-18] MEDS: LOVENOX 40 MG SC (17:36)
[2023-11-18] MEDS: ATIVAN 0.5 MG IV (22:25)
[2023-11-18] MEDS: NSS (PRESERVATIVE FREE) 0.25 ML IV (22:25)
[2023-11-19] VITALS (8 sets, daily range): BP systolic 119–186; BP diastolic 59–105
[2023-11-19] MEDS: STERILE WATER FOR INJECTION 10 ML IV ×2 (04:05→17:26)
[2023-11-19] MEDS: MAXIPIME 2000 MG IV ×2 (04:05→17:26)
[2023-11-19] MEDS: LR 1000 IV (05:13)
[2023-11-19 06:15] LABS: Hemoglobin 8.6 g/dL (12.0-16.0); Mean Corp Hgb Conc. 33.1 g/dL (33.0-37.0); Mean Corpuscular Hgb 25.5 pg (27.0-31.0); Mean Corpuscular Volume 77.2 fL (81.0-99.0); Mean Platelet Volume 9.5 fL (7.4-10.4); Platelet Count 163 10^3/uL (130-400); Red Blood Cell Count 3.37 10^6/uL (4.20-5.40); Red Cell Dist. Width 18.5 % (11.5-14.5); White Blood Cell Count 8.1 10^3/uL (4.8-10.8)
[2023-11-19 06:36] LABS: Blood Urea Nitrogen 34 mg/dl (7-17); Calcium 8.7 mg/dl (8.4-10.2); Carbon Dioxide 24 mmol/L (22-30); Chloride 117 mmol/L (98-107); Estimated Creatinine Clearance 51 ml/min; Glucose 82 mg/dl (70-99); Potassium 3.1 mmol/L (3.5-5.1); Sodium 144 mmol/L (135-145); eGFR > 60.00
[2023-11-19 06:42] LABS: Vancomycin Random 12.3 ug/ml
[2023-11-19] MEDS: D5/0.9% SODIUM CHLORIDE 1000 IV ×2 (08:03→20:47)
[2023-11-19] MEDS: LOPRESSOR 5 MG IV ×4 (08:03→23:51)
[2023-11-19] MEDS: ATIVAN 0.25 MG IV (08:15)
[2023-11-19] MEDS: NSS (PRESERVATIVE FREE) 0.125 ML IV (08:17)
[2023-11-19] MEDS: DESENEX/MITRAZOL/ZEASORB 1 APPLIC TOPICAL ×2 (08:18→20:59)
[2023-11-19] MEDS: KCL 270 MEQ IV (08:18)
--- NOTE | 2023-11-19 08:19 | PHA.VAN.FU ---
Vancomycin Assessment / Plan
- Assessment
Renal Function: Stable
WBC's are: WNL
In the past 24 hrs, patient has been: Afebrile
Concomitant Antimicrobials: cefepime
- Assessment - Therapeutic Drug Monitoring
Random Level: 12.3 - drawn ~17H after previous dose of 1000mg
Vancomycin administered in procedural area at 13:04
- Dosing Plan
Dosing by Level: Re-dose today (Vanc 1000mg)
- Monitoring Plan
Random Level: 11/19 599
- Follow Up
Pharmacy will continue to follow.
Vancomycin Follow UP
- -
Patient Age: 78
Patient Sex: Female
Vancomycin Day #: 4
Indication: Skin And Soft Tissue
Requesting Provider: [facility] / Dr. Camargo
Pertinent Antimicrobial Allergies:
Penicillin = tongue swelling
Height / Weight:
Height 5 ft 2 in
Actual Weight 64.9 kg
IBW in k.1
Adjusted BW in k
Pertinent Past Medical History: Ambulatory dysfunction
- Vital Signs / Lab Results
Temp Pulse Resp BP Pulse Ox
97.9 F 103 19 186/78 94
11/19/23 07:00 11/19/23 07:00 11/19/23 07:00 11/19/23 07:00 11/19/23 07:00
Lab Results - Hematology
11/17/23 11/18/23 11/19/23
06:37 06:00 05:50
WBC 14.4 H 14.0 H 8.1
Lab Results - Chemistry
11/17/23 11/18/23 11/19/23
06:37 06:00 05:50
BUN 38 H 36 H 34 H
Creatinine 0.6 0.7 0.7
Estimated Creat Clear 59 51 51
Albumin 2.7 L
11/17/23 11/17/23
06:37 20:43
Lactic Acid 3.9 H 0.8
Microbiology Results
11/15/23 22:36 Blood Culture - Preliminary
Blood/Venous No Growth in 72 hours- Final report to follow
11/15/23 22:31 Blood Culture - Preliminary
Blood/Venous No Growth in 72 hours- Final report to follow
11/18/23 13:12 Gram Stain - Preliminary
Ulcer
11/18/23 13:12 Gram Stain - Preliminary
Sacral
11/16/23 13:11 MRSA Screen - Final
Nose Staph aureus MRSA
11/16/23 00:49 Urine Culture - Final
Urine
Therapeutic Drug Monitoring
Random Vancomycin 12.3 ug/ml 11/19/23 05:50
[2023-11-19] MEDS: DILAUDID 0.25 MG IV ×2 (09:19→20:52)
--- NOTE | 2023-11-19 09:30 | WOUNDNOTE ---
R LATERAL LOWER LEG
--- NOTE | 2023-11-19 09:31 | WOUNDNOTE ---
SULTANA RN NOTE: Followed along with Dr. Martines for post op dressing change to sacrum. Packing removed by surgeon, base to bone with fascia covering, undermines all around, deepest is at 6 o clock at 4cm. Saline WTD dressing placed with assist from
nurse Gupta. L heel remains with tiny stage 1 PI, R heel intact. Patient much less mobile, poor appetite. Called [facility] for [facility] air bed, [facility] Richard made aware and to switch beds when able. Also called [facility] for Prevalon offloading heel boots.
Patient reportedly keeps wedging self into R side rail despite trying to pad area. Abrasions on R lateral lower leg and dorsal foot, dry and flat, no drainage. Silicone foams applied to protect. Foam adhesives changed on heels. Will put in order for
heel boots and updated wound care. Will notify nurse Gupta and update care plan.
[2023-11-19] MEDS: VIMPAT 150 MG IV ×2 (11:12→22:22)
--- NOTE | 2023-11-19 11:19 | W.PN.ID1 ---
Date of Service
Date of Service: November 19, 2023
Today's Communication
Narrow to cefepime alone.
Assessment / Plan
Leukocytosis
Encephalopathy; suspect TME
Unstageable sacral wound
- s/p debridement.
Reported PCN allergy
- Has tolerated cephalosporins in the past without issue
HTN
Dyslipidemia
Dementia
GERD
Recommendations:
Continue cefepime 2 g IV every 12 hours.
Tissue cultures without growth of MRSA; discontinue further vancomycin.
Follow pending cultures.
Follow WBC / temp curve.
Aspiration precautions.
Prognosis guarded. Given overall appearance, patient appears palliative care/hospice appropriate.
����������������������������������������������������������
Chief Complaint
-: Leukocytosis
Subjective / Review of Systems
Review of Systems: No Fever
Vital Signs / Physical Exam
Vital Signs
Vital Signs
Temp Pulse Resp BP Pulse Ox
97.9 F 103 19 186/78 94
11/19/23 07:00 11/19/23 07:00 11/19/23 07:00 11/19/23 07:00 11/19/23 07:00
Physical Exam
Constitutional: Chronically Ill, Cachetic and Other (Extremely frail in appearance.)
Cardiovascular: S1/S2; Negative S3/S4
Pulmonary: Non Labored
Gastrointestinal: Non Distended
Wound: Other (Sacral wound dressed.)
Neurological: Awake and Other (Nonverbal for me.)
Objective Data
Lab Data
Lab Results
11/19/23 05:50
11/19/23 05:50
Estimated Creat Clear 51 ml/min 11/19/23 05:50
Lactic Acid 0.8 mmol/L (0.7-2.0) 11/17/23 20:43
Total Bilirubin 0.9 mg/dl (0.2-1.3) 11/18/23 06:00
AST 24 U/L (14-36) 11/18/23 06:00
ALT 15 U/L (0-35) 11/18/23 06:00
Alkaline Phosphatase 146 U/L (38-126) H 11/18/23 06:00
Most recent labs reviewed.
Micro Results:
11/18/23 13:12 Tissue Culture - Preliminary
Ulcer Gram negative bacilli
Streptococcus agalactiae
Gram Stain - Preliminary
11/15/23 22:36 Blood Culture - Preliminary
Blood/Venous No Growth in 72 hours- Final report to follow
11/15/23 22:31 Blood Culture - Preliminary
Blood/Venous No Growth in 72 hours- Final report to follow
11/18/23 13:12 Wound Culture - Pending
Sacral Gram Stain - Preliminary
11/18/23 13:12 Anaerobic Culture - Pending
Sacral
11/16/23 13:11 MRSA Screen - Final
Nose Staph aureus MRSA
11/16/23 00:49 Urine Culture - Final
Urine
11/15/23 22:31 Influenza Types A & B (ELEUTERIO) - Final
Nasal Swab Negative for Influenza A & B, NAAT
Negative results must be combined with clinical observations
and patient history.
Nucleic Acid Amplification test (NAAT)performed on the
[employer] platform.
Imaging:
11/16/2023 CXR (portable): No focal interstitial airspace opacity noted. Heart size is top normal. No significant vascular congestion seen. Please see full dictation for additional detail. Film personally viewed.
--- NOTE | 2023-11-19 11:25 | W.PN.GS2 ---
Today's Communication / Plan
-
local wound care
Assessment / Plan
-
Patient is an 78 yo F admitted with severe sepsis with encephalopathy 2/2 infected sacral pressure wound POD1 s/p I&D inb the OR
-- Severe sepsis has resolved.
-- Leukocytosis normalized
-- No indication for further surgical debridement. Recommend local wound care with saline wet-to-dry, offloading and nutritional support
-- Pls call with ?s
Subjective Data
-
Date of Service: November 19, 2023
AFVSS, nonverbal, does not participate in encounter
Objective Data
-
Intake and Output
11/18/23 11/19/23 11/20/23
06:59 06:59 06:59
Intake Total 1200 / 1200 1579 / 1579
Output Total 700 / 700
Balance 1200 / 1200 879 / 879
Intake:
Oral fluids 0 / 0
IV fluids (Total) 1200 / 1200 1109 / 1109
LR 25 / 25
VANCO 50 / 50
kRIDER 34 / 34
IV piggybacks 470 / 470
Output:
Urine, Voided 700 / 700
Other:
How many times incontinent 1
SMALL amount urine
How many times incontinent 1
SATURATED amount urine
Vital Signs
Temp Pulse Resp BP Pulse Ox
97.9 F 103 19 186/78 94
11/19/23 07:00 11/19/23 07:00 11/19/23 07:00 11/19/23 07:00 11/19/23 07:00
Lab Results
11/19/23 05:50
11/19/23 05:50
Calcium 8.7 mg/dl (8.4-10.2) 11/19/23 05:50
Magnesium 1.4 mg/dl (1.6-2.3) L 11/17/23 06:37
Total Bilirubin 0.9 mg/dl (0.2-1.3) 11/18/23 06:00
AST 24 U/L (14-36) 11/18/23 06:00
ALT 15 U/L (0-35) 11/18/23 06:00
Alkaline Phosphatase 146 U/L (38-126) H 11/18/23 06:00
Total Protein 5.4 g/dl (6.3-8.2) L 11/18/23 06:00
Albumin 2.7 g/dl (3.5-5.0) L 11/18/23 06:00
Physical Exam
-
Gen: NAD
Rectal: stage IV sacral pressure wound with healthy tissue and bone with early signs of necrosis at the wound base, no bleeding, no necrotic soft tissue to debride, no purulence, no odor
--- NOTE | 2023-11-19 12:34 | W.PN.HOSP.TC ---
Today's Communication/Plan
-
.
Assessment / Plan
Assessment / Plan
Physical Exam
General: Cachectic and Other (lethargic )
HEENT: NormoCephalic, Anicteric and Atraumatic
Respiratory: Clear; No Wheezes
Cardiac: S1/S2
GI: Soft, Non Tender, Non Distended and Normal Bowel Sounds
Genito-urinary: No hematuria
Musculoskeletal: No Cyanosis and No Edema
Skin: Other ( Chronic venous stasis changes in the lower extremities)
Neuro: seems less lethargic but anxious and some agitation noted.
pt is an 78 year old female
Sepsis (POA by criteria) due to Lethargic/hypoactive encephalopathy secondary to infected stage IV sacral decubitus ulcer status post excisional debridement of the sacral ulcer by Dr. Portillo on 11/18/23
Wound culture mostly consistent gram-negative bacilli. Agree with ID to stop vancomycin.
Urine culture no growth
No Signs of respiratory compromise to support aspiration
--cont vanco/cefepime. MRSA screen is positive
Blood culture is no growth so far
Urine culture is No growth
c/w wound care
c/w IVF while unable to take oral
Negative COVID
Chest x ray No focal interstitial or airspace opacity to indicate pneumonia
Added bladder scan protocol
Normal liver enzymes
Appreciate ID & surgery help
# hypokalemia, replace with IV potassium
# Toxic metabolic encephalopathy on underlying advanced dementia
Scan of the head showed Extensive diffuse bilateral patchy and confluent periventricular and subcortical white matter diminished attenuation. Similar to prior examination. Most consistent with advanced chronic microvascular white matter ischemic
disease. There are a few small stable chronic lacunar infarcts with small foci of CSF attenuation superimposed at the peripheral margin of the basal ganglia and/or external capsule. Similar to prior examination. Stable chronic lacunar infarct
involving the left thalamus. No evidence to suggest acute large vascular territory transcortical infarct at this time.
# Hyponatremia, c/w IVF
# HX Chronic Ambulatory Dysfunction/L5 Spinal Fracture--PT/OT as able
#Underlying Dementia with behavioral Disturbance --calm currently--not requiring restraints--cont meds as able--speech eval--- held Risperidone due to lethargy restart as able
#HX Seizure -
c/w IV Vimpat
Appreciate neurology help
#Essential HTN-
She has been off her blood pressure medications for several days. Blood pressure starting to go up with tachycardia. Unable to take orally, will place her on IV metoprolol with holding parameters.
#Benzo Dependence--Alprazolam
continue with low-dose Ativan
#Nicotine Dependence
DVT Px: LMWH
Code status. d/w Ronn at bed side. Explained the code and whether he wanted resuscitative measures. Explained that comfort measures will benefit the patient at this point with advanced dementia. He verbalized agreement to change code to
DO NOT RESUSCITATE
Total time spent to see the patient, examine the patient on the floor, review data and lab results, discuss treatment plan with patient, , nursing staff around 59 minutes.
Anticipated Discharge: > 48 hours
Subjective/Interval History
-
Date of Service: November 19, 2023
Agitated and did not answer questions or follow commands.
Objective Data
-
Labs:
Laboratory Results
11/19/23
05:50
WBC 8.1
Hgb 8.6 L
Hct 26.0 L
Plt Count 163
Sodium 144
Potassium 3.1 L
Chloride 117 H
Carbon Dioxide 24
BUN 34 H
Creatinine 0.7
Glucose 82
Calcium 8.7
Vital Signs:
Vital Signs
Temp Pulse Resp BP Pulse Ox
98.4 F 79 18 119/84 94
11/19/23 11:00 11/19/23 11:00 11/19/23 11:00 11/19/23 11:00 11/19/23 11:00
I&O
11/18/23 11/19/23 11/20/23
06:59 06:59 06:59
Intake Total 1200 / 1200 1579 / 1579
Output Total 700 / 700
Balance 1200 / 1200 879 / 879
--- NOTE | 2023-11-19 12:37 | PTOTSP ---
Dysphagia Therapy
Patient inappropriate for oral PO at this time given signs of refusal and oral stage dysphagia (i.e., decreased labial seal, prolonged/disorganized A-P transfers, spitting out puree before swallowing). Consider goals of care discussion about
nutrition/hydration warranted in patient with advanced dementia with dysphagia.
Recommend:
1. NPO - consider temporary non-oral means and/or goals of care discussions
2. Medications - non-oral means as able/appropriate
3. Oral care 3x day as tolerated
4. Aspiration risk hydration protocol is not appropriate at this time
5. Will follow up for continued re-evaluation as appropriate pending goals of care.
--- NOTE | 2023-11-19 15:39 | CM ---
Case management following for d/c planning
s/p debridement of stage IV sacral ulcer on 11/17
IV abx
PT recs SNF
CM will discuss with family
CM will follow for discharge needs
Plan - SNF vs home with HH at d/c
--- NOTE | 2023-11-19 15:45 | PTOTSP ---
pt is currently moaning, not opening eyes and not following direction. attempted to wake pt to feed, drink, small amout of liquid given to pt though no response noted, despite assisted with sitting up on EOB. per RN, pt is more lethargic than
previously. will sign off at this time, no skilled OT indicated. please re-order once pt is more appropriate to participate.
[2023-11-19] MEDS: LOVENOX 40 MG SC (17:26)
[2023-11-19] MEDS: NSS (PRESERVATIVE FREE) 0.25 ML IV (22:21)
[2023-11-19] MEDS: ATIVAN 0.5 MG IV (22:21)
[2023-11-20 03:37] VITALS: BP 114/79
[2023-11-20] MEDS: STERILE WATER FOR INJECTION 10 ML IV ×2 (03:58→15:14)
[2023-11-20] MEDS: MAXIPIME 2000 MG IV ×2 (04:03→15:06)
[2023-11-20] MEDS: DILAUDID 0.25 MG IV ×5 (04:04→22:10)
[2023-11-20] MEDS: LOPRESSOR 5 MG IV ×3 (06:28→17:14)
[2023-11-20 06:31] LABS: Blood Urea Nitrogen 26 mg/dl (7-17); Calcium 8.6 mg/dl (8.4-10.2); Carbon Dioxide 28 mmol/L (22-30); Chloride 112 mmol/L (98-107); Estimated Creatinine Clearance 51 ml/min; Glucose 108 mg/dl (70-99); Sodium 148 mmol/L (135-145); eGFR > 60.00
[2023-11-20] MEDS: ATIVAN 0.25 MG IV ×2 (07:35→16:09)
[2023-11-20 07:45] VITALS: BP 196/115
[2023-11-20] MEDS: APRESOLINE 10 MG IV (08:45)
[2023-11-20] MEDS: DESENEX/MITRAZOL/ZEASORB 1 APPLIC TOPICAL ×2 (08:47→22:29)
[2023-11-20 09:30] VITALS: BMI 19.2
[2023-11-20] MEDS: D5/0.9% SODIUM CHLORIDE 1000 IV ×2 (09:33→22:25)
[2023-11-20 10:55] VITALS: BP 123/81
[2023-11-20] MEDS: VIMPAT 150 MG IV ×2 (11:25→23:37)
--- NOTE | 2023-11-20 13:39 | W.PN.HOSP.TC ---
Today's Communication/Plan
-
.
Assessment / Plan
Assessment / Plan
Physical Exam
General: Cachectic and Other (lethargic )
HEENT: NormoCephalic, Anicteric and Atraumatic
Respiratory: Clear; No Wheezes
Cardiac: S1/S2
GI: Soft, Non Tender, Non Distended and Normal Bowel Sounds
Genito-urinary: No hematuria
Musculoskeletal: No Cyanosis and No Edema
Skin: Other ( Chronic venous stasis changes in the lower extremities)
Neuro: seems less lethargic but anxious and some agitation noted. Non verbal.
Psych: mix of lethargy and agitation noted.
pt is an 78 year old female
# Goals of care discussion
I spoke with the son at the bedside. Son is security technician at [employer] and had medical knowledge. Discussed options whether to pursue tube feeding or hospice care. Patient has not been able to improve despite aggressive medical
care and antibiotics. Patient is still showing signs of lethargy and agitation. Per family, patient has been declining in recent months, Wheelchair-bound after progressive spinal stenosis and inability to walk. Confusion was increasing at times
although she had moments of some clarity with family in the past.
Options will be to pursue tube feeding as [place] but will need restraints to avoid aspiration/pulling of tubes and subsequently if improvement might consider PEG tube feeding and discharge planning or other option to pursue hospice comfort care.
Family to decide and we will continue discussion. All questions were answered.
#Sepsis (POA by criteria) due to Lethargic/hypoactive encephalopathy secondary to infected stage IV sacral decubitus ulcer status post excisional debridement of the sacral ulcer by Dr. Portillo on 11/18/23
Wound culture mostly consistent gram-negative bacilli. Agree with ID to stop vancomycin.
Urine culture no growth
No Signs of respiratory compromise to support aspiration
--cont vanco/cefepime. MRSA screen is positive
Blood culture is no growth so far
Urine culture is No growth
c/w wound care
c/w IVF while unable to take oral
Negative COVID
Chest x ray No focal interstitial or airspace opacity to indicate pneumonia
Added bladder scan protocol
Normal liver enzymes
Appreciate ID & surgery help
# hypokalemia, replace with IV potassium
# Toxic metabolic encephalopathy on underlying advanced dementia
Scan of the head showed Extensive diffuse bilateral patchy and confluent periventricular and subcortical white matter diminished attenuation. Similar to prior examination. Most consistent with advanced chronic microvascular white matter ischemic
disease. There are a few small stable chronic lacunar infarcts with small foci of CSF attenuation superimposed at the peripheral margin of the basal ganglia and/or external capsule. Similar to prior examination. Stable chronic lacunar infarct
involving the left thalamus. No evidence to suggest acute large vascular territory transcortical infarct at this time.
# Hyponatremia, c/w IVF
# HX Chronic Ambulatory Dysfunction/L5 Spinal Fracture--PT/OT as able
#Underlying Dementia with behavioral Disturbance --calm currently--not requiring restraints--cont meds as able--speech eval--- held Risperidone due to lethargy restart as able
#HX Seizure -
c/w IV Vimpat
Appreciate neurology help
#Essential HTN-
She has been off her blood pressure medications for several days. Blood pressure starting to go up with tachycardia. Unable to take orally, will place her on IV metoprolol with holding parameters.
#Benzo Dependence--Alprazolam
continue with low-dose Ativan
#Nicotine Dependence
DVT Px: LMWH
Code status. d/w Ronn at bed side. Explained the code and whether he wanted resuscitative measures. Explained that comfort measures will benefit the patient at this point with advanced dementia. He verbalized agreement to change code to
DO NOT RESUSCITATE
Total time spent to see the patient, examine the patient on the floor, review data and lab results, discuss treatment plan with patient, , nursing staff around 59 minutes.
Anticipated Discharge: > 48 hours
Subjective/Interval History
-
Date of Service: November 20, 2023
No improvement
she continues to show agitation and restless ness when touched. Non verbal
Objective Data
-
Labs:
Laboratory Results
11/20/23
05:39
Sodium 148 H
Potassium 3.0 L
Chloride 112 H
Carbon Dioxide 28
BUN 26 H
Creatinine 0.7
Glucose 108 H
Calcium 8.6
Vital Signs:
Vital Signs
Temp Pulse Resp BP Pulse Ox
99.2 F 98 17 123/81 94
11/20/23 10:55 11/20/23 10:55 11/20/23 10:55 11/20/23 10:55 11/20/23 10:55
I&O
11/19/23 11/20/23 11/21/23
06:59 06:59 06:59
Intake Total 1579 / 1579 1230 / 1230 960 / 960
Output Total 700 / 700 1999 / 1999
Balance 879 / 879 -770 / -770 960 / 960
--- NOTE | 2023-11-20 14:31 | CM ---
Addendum entered by Crystal Munguia 11/20/23 14:37:
Hospice nurse will meet with family in pts room tomorrow at 10AM
Family aware
Original Note:
Consulted for Hospice
Spoke with pts son at bedside - reports family agrees with hospice. Son reporting His step-father makes decisions for
Spoke with Mr Patel by phone - discussed hospice, offered choice of agency. Would like Hospice
TT sent to [facility] for consult. Referral sent in [facility]
Plan - anticipate d/c to hospice - tbd
--- NOTE | 2023-11-20 14:38 | HOSPNOTE ---
Referral received the plan is to meet with family at 10am 11/21/23 with spouse and son to discuss hospice and the philosophy. More information to follow.
[2023-11-20 15:37] VITALS: BP 154/86
[2023-11-20] MEDS: LOVENOX 40 MG SC (17:14)
--- NOTE | 2023-11-20 17:21 | W.PN.ID1 ---
Date of Service
Date of Service: November 20, 2023
Today's Communication
Continue cefepime 2 g IV every 12 hours - if she transitions to hospice then would stop antibiotics
Further recommendations pending goals of care discussions
Prognosis guarded. Given overall appearance, patient appears palliative care/hospice appropriate.
Assessment / Plan
Leukocytosis
Encephalopathy; suspect TME
Unstageable sacral wound
- s/p debridement.
Reported PCN allergy
- Has tolerated cephalosporins in the past without issue
HTN
Dyslipidemia
Dementia
GERD
Recommendations:
Continue cefepime 2 g IV every 12 hours - if she transitions to hospice then would stop antibiotics
Further recommendations pending goals of care discussions
Prognosis guarded. Given overall appearance, patient appears palliative care/hospice appropriate.
����������������������������������������������������������
Chief Complaint
-: Leukocytosis
Subjective / Review of Systems
afebrile
bp stable
without leukocytosis
cr normal
wound cx: also with enterococcus
Vital Signs / Physical Exam
Vital Signs
Vital Signs
Temp Pulse Resp BP Pulse Ox
97.8 F 88 16 154/86 94
11/20/23 15:37 11/20/23 15:37 11/20/23 15:37 11/20/23 15:37 11/20/23 15:37
Physical Exam
Constitutional: No Acute Distress
Cardiovascular: Regular Rate and S1/S2; Negative Murmur or Rub
Pulmonary: Clear and Symmetric; Negative Wheezes or Rales
Gastrointestinal: Soft, Non Tender, Non Distended and Normal Bowel Sounds
Skin: Warm and Dry; Negative Rash or Jaundice
Objective Data
Lab Data
Lab Results
11/19/23 05:50
11/20/23 05:39
Estimated Creat Clear 51 ml/min 11/20/23 05:39
Lactic Acid 0.8 mmol/L (0.7-2.0) 11/17/23 20:43
Total Bilirubin 0.9 mg/dl (0.2-1.3) 11/18/23 06:00
AST 24 U/L (14-36) 11/18/23 06:00
ALT 15 U/L (0-35) 11/18/23 06:00
Alkaline Phosphatase 146 U/L (38-126) H 11/18/23 06:00
Most recent labs reviewed.
Micro Results:
11/18/23 13:12 Wound Culture - Preliminary
Sacral Enterococcus species
Klebsiella pneumoniae
Streptococcus agalactiae
Gram Stain - Preliminary
11/18/23 13:12 Tissue Culture - Final
Ulcer Klebsiella pneumoniae
Streptococcus agalactiae
Gram Stain - Final
11/15/23 22:36 Blood Culture - Preliminary
Blood/Venous No Growth in 4 days- Final report to follow
11/15/23 22:31 Blood Culture - Preliminary
Blood/Venous No Growth in 4 days- Final report to follow
11/18/23 13:12 Anaerobic Culture - Preliminary
Sacral Culture pending. Anaerobic cultures are examined after 3
days incubation. Additional information to follow.
11/16/23 13:11 MRSA Screen - Final
Nose Staph aureus MRSA
11/16/23 00:49 Urine Culture - Final
Urine
11/15/23 22:31 Influenza Types A & B (ELEUTERIO) - Final
Nasal Swab Negative for Influenza A & B, NAAT
Negative results must be combined with clinical observations
and patient history.
Nucleic Acid Amplification test (NAAT)performed on the
[employer] platform.
Imaging:
11/16/2023 CXR (portable): No focal interstitial airspace opacity noted. Heart size is top normal. No significant vascular congestion seen. Please see full dictation for additional detail. Film personally viewed.
[2023-11-20 19:30] VITALS: BP 128/67
[2023-11-20] MEDS: ATIVAN 0.5 MG IV (22:08)
[2023-11-20] MEDS: NSS (PRESERVATIVE FREE) 0.125 ML IV (22:09)
[2023-11-20] MEDS: FLUSH (NSS) 2 FLUSH IV ×2 (22:11→23:40)
[2023-11-20] MEDS: NSS (PRESERVATIVE FREE) 0.25 ML IV (22:23)
[2023-11-20 23:37] VITALS: BP 160/74
[2023-11-21] MEDS: LOPRESSOR 5 MG IV ×2 (00:55→06:36)
[2023-11-21] MEDS: DILAUDID 0.25 MG IV ×2 (01:21→04:50)
[2023-11-21 03:40] VITALS: BP 125/87
[2023-11-21] MEDS: MAXIPIME 2000 MG IV (04:34)
[2023-11-21] MEDS: STERILE WATER FOR INJECTION 10 ML IV (04:35)
[2023-11-21] MEDS: FLUSH (NSS) 2 FLUSH IV ×3 (04:35→06:38)
[2023-11-21 07:30] VITALS: BP 152/99
[2023-11-21] MEDS: DILAUDID 0.5 MG IV ×2 (07:50→10:34)
[2023-11-21] MEDS: DESENEX/MITRAZOL/ZEASORB 1 APPLIC TOPICAL (07:58)
--- NOTE | 2023-11-21 09:36 | W.PN.HOSP.TC ---
Today's Communication/Plan
-
comfort measures
Assessment / Plan
Assessment / Plan
Physical Exam
General: Cachectic and Other (lethargic )
HEENT: Normocephalic, Anicteric and Atraumatic. Dry MM.
Respiratory: limited, No Wheezes
Cardiac: S1/S2
GI: Soft, Non Tender, Non Distended and Normal Bowel Sounds
Genito-urinary: No hematuria
Musculoskeletal: No Cyanosis and No Edema
Skin: Other ( Chronic venous stasis changes in the lower extremities)
Neuro: lethargic but gets agitated upon verbal or tactile stimulation. Non verbal.
Psych: mix of lethargy and agitation noted.
pt is an 78 year old female
# Goals of care discussion
After discussing goal of care. Family wanted hospice care
c/w IV Dilaudid to help with agitation.
#Sepsis (POA by criteria) due to Lethargic/hypoactive encephalopathy secondary to infected stage IV sacral decubitus ulcer status post excisional debridement of the sacral ulcer by Dr. Portillo on 11/18/23
Wound culture mostly consistent gram-negative bacilli. Agree with ID to stop vancomycin.
Urine culture no growth
No Signs of respiratory compromise to support aspiration
--cont vanco/cefepime. MRSA screen is positive
Blood culture is no growth so far
Urine culture is No growth
c/w wound care
c/w IVF while unable to take oral
Negative COVID
Chest x ray No focal interstitial or airspace opacity to indicate pneumonia
Added bladder scan protocol
Normal liver enzymes
Appreciate ID & surgery help
# hypokalemia, replace with IV potassium
# Toxic metabolic encephalopathy on underlying advanced dementia
Scan of the head showed Extensive diffuse bilateral patchy and confluent periventricular and subcortical white matter diminished attenuation. Similar to prior examination. Most consistent with advanced chronic microvascular white matter ischemic
disease. There are a few small stable chronic lacunar infarcts with small foci of CSF attenuation superimposed at the peripheral margin of the basal ganglia and/or external capsule. Similar to prior examination. Stable chronic lacunar infarct
involving the left thalamus. No evidence to suggest acute large vascular territory transcortical infarct at this time.
# Hyponatremia, unable to take oral diet due to encephalopathy and no orientation/high risk of aspiration. , c/w IVF
# HX Chronic Ambulatory Dysfunction/L5 Spinal Fracture--
#Underlying Dementia with behavioral Disturbance --Continuous decline with agitation.
#HX Seizure -
c/w IV Vimpat
Appreciate neurology help
#Essential HTN-
c/w IV PRN hydralazine and IV metoprolol with holding parameters.
#Benzo Dependence--Alprazolam
continue with low-dose Ativan
#Nicotine Dependence
DVT Px: LMWH
Code status. DNR
Total time spent to see the patient, examine the patient on the floor, review data and lab results, discuss treatment plan with patient, , nursing staff around 59 minutes.
Anticipated Discharge: Within 24 hours
Subjective/Interval History
-
Date of Service: November 21, 2023
Agitated over night, need > one dose of Dilaudid
Objective Data
-
Vital Signs:
Vital Signs
Temp Pulse Resp BP Pulse Ox
99.2 F 93 20 152/99 93
11/21/23 07:30 11/21/23 07:30 11/21/23 07:30 11/21/23 07:30 11/21/23 07:30
I&O
11/20/23 11/21/23 11/22/23
06:59 06:59 06:59
Intake Total 1230 / 1230 1999
Output Total 1999 1550 / 1550
Balance -770 / -770 450 / 450
[2023-11-21] MEDS: D5/0.9% SODIUM CHLORIDE IV (10:48)
[2023-11-21] MEDS: VIMPAT IV (10:49)
--- NOTE | 2023-11-21 10:58 | HOSPNOTE ---
Met with the patients son and . Patient meets criteria for [facility] hospice admission. Family and Dr Black are in agreement.
[2023-11-21] MEDS: LOPRESSOR IV (11:07)
--- NOTE | 2023-11-21 11:44 | CM ---
Family met with Hospice nurse today
Pt meets criteria for [facility] hospice
Plan is to admit pt to [facility] hospice
--- NOTE | 2023-11-21 11:49 | W.DCSUMMARY ---
Discharge Summary
Discharge Data
Date of Admission: 11/16/23
Date of Discharge: 11/21/23
-
Pending Results: No
Hospital Course
78 years old female admitted with increasing lethargy, confusion with fevers. Patient was diagnosed with sepsis. She was found to have infected stage IV sacral decubitus ulcer. Patient underwent excisional debridement of the sacral ulcer in
preparation for possible skin graft. Patient received intravenous antibiotics and intravenous fluids. She received intravenous blood pressure medication to control her blood pressure. Patient was followed by wound care nurse and infectious
diseases weight loss sales consultant. Blood culture did not show bacteremia. Fever and leukocytosis resolved. Patient did not improve clinically. HIDA scan showed diffuse bilateral patchy and confluent periventricular and subcortical white matter disease,
consistent with advanced chronic microvascular disease, a few small stable chronic lacunar infarcts with no acute findings.
She continued to have encephalopathy and unable to talk or eat. Patient was evaluated by speech therapist and recommended to keep the patient n.p.o. to avoid aspiration and to discuss goal of care. Patient started to have agitation and
restlessness. Her wanted the patient to remain comfortable as much as possible. Goal of care discussion was held with the family. They were very clear in expressing their wishes to keep the patient comfortable. They also reported that
patient was struggling with dementia, mobility and failure to thrive. Her confusion was increasing recently, also losing weight and not maintaining good oral intake. They were given the option to pursue feeding tube as a trial but because of
underlying dementia and poor functional status, family decided hospice care. They met with case management. Patient was evaluated by [facility] hospice nurse. Patient was discharged to inpatient hospice as she was requiring intravenous pain
medicine and sedative to keep her comfortable.
Total discharge time spent to see the patient, examine the patient on the floor, review data and lab results, discuss discharge plan with family, case management, hospice nurse, nursing staff around 65 minutes.
Discharge Plan
-
Patient Disposition: Hospice - Inpatient
Discharge Diagnosis/Procedures: Sepsis
Dementia
Activity Restrictions/Additional Instructions:
Wound Care Instructions
Sacrum/buttocks: clean with saline, skin prep periwound, Saline moistened smaller Kerlix packed into wound, folded 4x4 and folded ABD pad secure with paper or Medipore tape, change daily and prn drainage.
heels: foams change q 3 days and prn soilage.
R dorsal foot and leg: silicone foams to protect change q 3 days and prn soilage.
Offloading heel boots, (TruVue lite boots) when in bed daily
Air mattress with turning schedule
ROHO cushion if sitting, limit to meals only
Increase protein in diet.
Follow up at wound care center call for an appointment.
Referrals:
Shawn Linder MD [Family Provider] -
Prescriptions:
Discontinued
lisinopril 20 MG tablet
10 mg PO DAILY
citalopram 20 MG tablet
20 mg PO DAILY
polyethylene glycol 3350 [HealthyLax] 17 gram powder in packet
17 g PO DAILY PRN (Reason: constipation)
gabapentin 300 mg Capsule
300 mg PO TID Qty: 0 0RF
atorvastatin 10 MG tablet
10 mg PO QPM Qty: 30 1RF
ferrous sulfate 325 mg (65 mg iron) tablet
325 mg PO Q48H
nifedipine 30 mg Tablet Extended Release
30 mg PO BID Qty: 60 0RF
lacosamide 100 mg Tablet
150 mg PO BID Qty: 60 2RF
labetalol 100 mg Tablet
100 mg PO BID
potassium chloride [Klor-Con] 20 mEq packet
20 meq PO DAILY
nicotine 21 mg/24 hr Patch 24 Hour
21 mg transdermal DAILY Qty: 0 0RF
alprazolam 0.5 MG tablet
0.5 mg PO HSPRN PRN (Reason: anxiety ) Qty: 5 0RF
oxycodone-acetaminophen 10-325 mg tablet
0.5 tab PO Q6H PRN (Reason: pain) Qty: 10 0RF
acetaminophen 325 mg Tablet
650 mg PO Q4HPRN PRN (Reason: mild pain)
bisacodyl 10 mg Suppository
10 mg NC DAILY PRN (Reason: Constipation)
magnesium hydroxide [Milk of Magnesia] 400 mg/5 mL Suspension
2,400 mg PO DAILYPRN PRN (Reason: if no bm in 96 hours)
Fleet Enema 19-7 gram/118 mL Enema
118 ml NC DAILYPRN PRN (Reason: constipation)
Santyl 250 unit/gram Ointment
1 applic TOPICAL DAILY
Discharge Orders:
Discharge Patient (As Directed); Ordered 11/21/23
Ordered By: Arvin Black
Discharge Date and Time
Print Language: PARAGUAYAN
[2023-11-21 12:00] VITALS: BP 188/90
[2023-11-21] MEDS: MORPHINE SULFATE 2 MG IV (12:23)
== END 2023-11-21 12:59 | disposition hospice, inpatient (51) | DRG 853 ==
LOC: 3 WEST ACU 04:27
PROVIDERS: Emergency Medicine; Internal Medicine; Nurse Practitioner Family; Surgery; ADMITTING PHYSICIAN Internal Medicine; ATTENDING PHYSICIAN Internal Medicine; CONSULT PHYSICIAN Internal Medicine Infectious Disease; CONSULT PHYSICIAN Student in an Organized Health Care Education/Training Program; CONSULT PHYSICIAN Surgery; EMERGENCY PHYSICIAN Emergency Medicine; FAMILY PHYSICIAN Family Medicine
PROC: 0JB70ZZ Excision of Back Subcutaneous Tissue and Fascia, Open Approach (ICD-10-PCS; 2023-11-18)
DX: A41.9 Sepsis, unspecified organism (principal); E43 Unspecified severe protein-calorie malnutrition; G92.8 Other toxic encephalopathy; L89.154 Pressure ulcer of sacral region, stage 4; N17.9 Acute kidney failure, unspecified; N39.0 Urinary tract infection, site not specified; F01.C11 Vascular dementia, severe, with agitation; F13.20 Sedative, hypnotic or anxiolytic dependence, uncomplicated; E87.20 Acidosis, unspecified; E87.1 Hypo-osmolality and hyponatremia; Z51.5 Encounter for palliative care; E78.00 Pure hypercholesterolemia, unspecified; I10 Essential (primary) hypertension; F17.200 Nicotine dependence, unspecified, uncomplicated; M48.00 Spinal stenosis, site unspecified; G40.909 Epilepsy, unspecified, not intractable, without status epilepticus; E87.6 Hypokalemia; F32.A Depression, unspecified; E83.42 Hypomagnesemia; R65.20 Severe sepsis without septic shock; R62.7 Adult failure to thrive; R26.2 Difficulty in walking, not elsewhere classified; B95.62 Methicillin resistant Staphylococcus aureus infection as the cause of diseases classified elsewhere; B96.89 Other specified bacterial agents as the cause of diseases classified elsewhere; I95.9 Hypotension, unspecified; K21.9 Gastro-esophageal reflux disease without esophagitis; D64.9 Anemia, unspecified; Z88.0 Allergy status to penicillin; Z90.49 Acquired absence of other specified parts of digestive tract; Z11.52 Encounter for screening for COVID-19; Z66 Do not resuscitate; Z99.3 Dependence on wheelchair; Z68.20 Body mass index [BMI] 20.0-20.9, adult
CPT/HCPCS: 51701; 70450; 71045; 80048; 80053; 80202; 81003; 81015; 82140; 83605; 83735; 84145; 85025; 85027; 87040; 87070; 87075; 87077; 87086; 87147; 87176; 87186; 87205; 87502; 87811; 92526; 92610; 96361; 96365; 96366; 96375; 97162; 97166; 97530; 99285; C9254

== ENCOUNTER 2023-11-21 13:02 | Inpatient (IN) | payer OTHER, SELFPAY ==
[2023-11-21 13:46] VITALS: BP 201/107
[2023-11-21] MEDS: MORPHINE SULFATE 2 MG IV ×2 (13:51→15:13)
[2023-11-21] MEDS: TYLENOL/FEVERALL 650 MG RECTAL (13:54)
--- NOTE | 2023-11-21 14:00 | PTCARENOTE ---
Received pt from [facility], comfort measures in place, pacheco placed by this RN, pt repositioned and medicated per OCT, pt resting comfortably in bed at this time.
[2023-11-21] MEDS: MORPHINE 100 IV (14:54)
--- NOTE | 2023-11-21 15:00 | PTCARENOTE ---
Wound noted on sacrum from admission, attempted to text WOC RN but was not able to speak with her for wound care directions, no wound care orders in at this time, PRN care given to sacral wound site, will reach out to in AM for wound care order
if indicated.
[2023-11-21] MEDS: ATIVAN 1 MG IV ×2 (15:11→22:25)
[2023-11-21] MEDS: NSS (PRESERVATIVE FREE) 0.5 ML IV ×2 (15:11→22:25)
[2023-11-21 20:17] VITALS: BP 173/94
--- NOTE | 2023-11-21 22:14 | HOSPNOTE ---
Patient was admitted onto Hospice services. She will remain [facility] due to needing frequent skilled assessments for titration of medications for management of anxiety and pain. Symptoms cannot be managed outside of the hospital at this time.
[2023-11-22 07:00] VITALS: BP 174/99
[2023-11-22] MEDS: NSS (PRESERVATIVE FREE) 0.5 ML IV ×3 (08:30→21:05)
[2023-11-22] MEDS: TYLENOL/FEVERALL 650 MG RECTAL ×3 (08:30→21:04)
[2023-11-22] MEDS: MORPHINE SULFATE 2 MG IV ×5 (08:30→17:03)
[2023-11-22] MEDS: ATIVAN 1 MG IV ×3 (08:31→21:04)
--- NOTE | 2023-11-22 09:17 | W.PN.HOSP.TC ---
Today's Communication/Plan
-
.
Assessment / Plan
Assessment / Plan
Physical Exam
General: Cachectic and Other (lethargic )
HEENT: Normocephalic, Anicteric and Atraumatic
Respiratory: limited, No Wheezes
Cardiac: S1/S2
GI: Soft, Non Tender, Non Distended
Genito-urinary: No hematuria, + Chang
Musculoskeletal: No Cyanosis and No Edema
Skin: Other ( Chronic venous stasis changes in the lower extremities)
Neuro: seems less lethargic but anxious and some agitation noted. Non verbal.
Psych: mix of lethargy and agitation noted.
pt is an 78 year old female
#Sepsis/ Toxic metabolic encephalopathy secondary to infected stage IV sacral decubitus ulcer status post excisional debridement of the sacral ulcer by Dr. Portillo on 11/18/23
s/p IV Abx
c/w morphine gtt
Tylenol PRN for fevers.
Add PRN Atropin
# hypokalemia.
# Toxic metabolic encephalopathy on underlying advanced dementia
# Hyponatremia
# HX Chronic Ambulatory Dysfunction/L5 Spinal Fracture-
#Underlying Dementia with behavioral Disturbance --
#HX Seizure -
c/w IV Ativan
#Essential HTN-
#Benzo Dependence--
c/w Ativan
#Nicotine Dependence
Total time spent to see the patient, examine the patient on the floor, review data and lab results, discuss treatment plan with nursing staff around 55 minutes.
Anticipated Discharge: 24 - 48 hours
Subjective/Interval History
-
Date of Service: November 22, 2023
Receiving the morphine gtt
No fevers
Objective Data
-
Vital Signs:
Vital Signs
Temp Pulse Resp BP Pulse Ox
99.2 F 89 12 174/99 94
11/22/23 07:00 11/22/23 07:00 11/22/23 07:00 11/22/23 07:00 11/22/23 07:00
I&O
11/21/23 11/22/23 11/23/23
06:59 06:59 06:59
Output Total 350 / 350
Balance -350 / -350
--- NOTE | 2023-11-22 12:57 | HOSPNOTE ---
Patient remains GIP appropriate level of care, Morphine continuous infusion at 2mg/hr. Morphine prn x 2 in last 24 hours, Ativan prn x 2 and tylenol suppository x 2 in last 24 hours. Temp 99.2, BP 179/99 HR 96 RR 12. Patient restless and fearful
to touch but settles after nursing care and has periods of rest. Informal conference with Mirna REID and no changes needed at this time. Spouse Richardson called to provide update message left.
[2023-11-22] MEDS: TRANSDERM-SCOP 1 PATCH TRANSDERM (15:59)
[2023-11-22] MEDS: ROBINUL 0.200000000000000011 MG IV (16:26)
[2023-11-22 19:00] VITALS: BP 155/87
[2023-11-23 07:45] VITALS: BP 154/84
[2023-11-23] MEDS: ATIVAN 1 MG IV ×2 (09:14→17:08)
[2023-11-23] MEDS: NSS (PRESERVATIVE FREE) 0.5 ML IV ×2 (09:19→17:08)
[2023-11-23] MEDS: MORPHINE 100 IV (09:20)
--- NOTE | 2023-11-23 10:16 | W.PN.HOSP.TC ---
Today's Communication/Plan
-
.
Assessment / Plan
Assessment / Plan
Physical Exam
General: Cachectic and Other (lethargic )
HEENT: Normocephalic, Anicteric and Atraumatic
Respiratory: limited, No Wheezes
Cardiac: S1/S2
GI: Soft, Non Tender, Non Distended
Genito-urinary: No hematuria, + Chang
Musculoskeletal: No Cyanosis and No Edema
Skin: Other ( Chronic venous stasis changes in the lower extremities)
Neuro: seems less lethargic but anxious and some agitation noted. Non verbal.
Psych: mix of lethargy and agitation noted.
pt is an 78 year old female
#Sepsis/ Toxic metabolic encephalopathy secondary to infected stage IV sacral decubitus ulcer status post excisional debridement of the sacral ulcer by Dr. Portillo on 11/18/23
s/p IV Abx
c/w morphine gtt
Tylenol PRN for fevers.
Add PRN Robinul and scopolamine patch
# hypokalemia.
# Toxic metabolic encephalopathy on underlying advanced dementia
# Hyponatremia
# HX Chronic Ambulatory Dysfunction/L5 Spinal Fracture-
#Underlying Dementia with behavioral Disturbance --
#HX Seizure -
c/w IV Ativan
#Essential HTN-
#Benzo Dependence--
c/w Ativan
#Nicotine Dependence
Total time spent to see the patient, examine the patient on the floor, review data and lab results, discuss treatment plan with nursing staff around 45 minutes.
Anticipated Discharge: Within 24 hours
Subjective/Interval History
-
Date of Service: November 23, 2023
no events over night
Objective Data
-
Vital Signs:
Vital Signs
Temp Pulse Resp BP Pulse Ox
102.4 F H 114 16 154/84 84
11/23/23 07:45 11/23/23 07:45 04/07/24 07:45 11/23/23 07:45 11/23/23 07:45
I&O
11/22/23 11/23/23 11/24/23
06:59 06:59 06:59
Intake Total 0 / 0
Output Total 350 / 350 260 / 260
Balance -350 / -350 -260 / -260
--- NOTE | 2023-11-23 11:37 | HOSPNOTE ---
Patient remains GIP appropriate level of care. Morphine continuous infusion increased to step 3 on 12/22/23. Had received Morphine x 4 doses from 2p-6p. Then increased to step 3. Ativan IV given x 3 in last 24 hours. Robinul x 1 and Tylenol x2 in
last 24 hours. Patient resting comfortably on step 3 Morphine but is still fearful and uncomfortable with care, returns to restfulness rapidly. Temp 102.4 HR 114 RR 16 BP 154/84. Son Jose visiting during hospice nurse visit. Reviewed end of life
care and comfort. Discussed patient had hours to days of life remaining. was in earlier today, hospice nurse will attempt to call him. Facility nurse did speak to him today.
[2023-11-23] MEDS: MORPHINE SULFATE 4 MG IV (18:50)
[2023-11-23 19:22] VITALS: BP 73/44
--- NOTE | 2023-11-23 20:40 | W.PN.DEATH ---
Pronouncement of
-
Called to see patient to pronounce.
No spontaneous heart tones or respirations noted.
Patient not responsive to verbal stimuli.
Patient is pronounced .
Time of : 20:31
Date of : 11/23/23
Cause of : Vascular Dementia
Metabolic Encephalopathy
Family Notified: Yes (via phone to )
--- NOTE | 2023-11-23 21:15 | W.PN.UPDATE ---
Update Note
Progress Note Update
Notified patient passed. Pronounced at 2030. Patient appears comfortable at time of passing. notified via phone and coming in to see patient. note completed. certificate completed. Care team updated. Hospice team updated.
--- NOTE | 2023-11-23 22:41 | PTCARENOTE ---
Entered pt's room on rounds, pt noted to be without spontaneous respirations or heart tones. Covering LINE RIDER notified and responded beside to pronounce TOD. Pt's contacted, visited pt with his step son, emotional support provided. Postmortem
care performed, no belongings for pt remain in the room.
--- NOTE | 2023-11-24 07:40 | W.DCSUMMARY ---
Discharge Summary
Discharge Data
Date of Admission: 11/21/23
Date of Discharge: 11/23/23
-
Pending Results: No
Hospital Course
Primary care physician : Shawn Linder
Principal Discharge diagnosis : vascular dementia, infected stage 4 sacral decubitus ulcer
Chronic Discharge diagnosis : Chronic ambulatory dysfunction with L5 spinal fracture, history of seizure, essential hypertension, benzodiazepine and nicotine dependence
Hospital Course : Patient was an 78-year-old female who was admitted to inpatient hospice for vascular dementia, encephalopathy and infected stage IV sacral decubitus ulcer. Patient was unable to talk or eat and after discussions with the family
the patient was admitted to inpatient hospice. Patient was placed on a morphine drip for symptom control and comfort. Patient on November 23, 2023 at 8:31 PM. Family and hospice were notified.
If there are any questions regarding this dictation or her hospital stay on hospice, please not hesitate to call. Our office number is [phone].
Discharge Plan
-
Patient Disposition:
Date/Time
Date/Time: 11/23/23 20:31
Discharge Date and Time
Discharge Date/Time: 11/23/23 20:31
Print Language: IRISH
== END 2023-11-23 20:31 | disposition expired | DRG 951 ==
LOC: 2 NORTH 13:02
PROVIDERS: ADMITTING PHYSICIAN Internal Medicine; ATTENDING PHYSICIAN Internal Medicine
DX: Z51.5 Encounter for palliative care (principal); A41.9 Sepsis, unspecified organism; L89.154 Pressure ulcer of sacral region, stage 4; G92.8 Other toxic encephalopathy; F01.C18 Vascular dementia, severe, with other behavioral disturbance; F13.20 Sedative, hypnotic or anxiolytic dependence, uncomplicated; E87.1 Hypo-osmolality and hyponatremia; E87.6 Hypokalemia; R26.2 Difficulty in walking, not elsewhere classified; R56.9 Unspecified convulsions; I10 Essential (primary) hypertension; Z87.891 Personal history of nicotine dependence